=== PATIENT | female | born 1985 | race Caucasian/White ===

== ENCOUNTER 2016-09-09 10:19 | Inpatient (IN) | payer OTHER ==
[2016-09-09 10:33] VITALS: BMI 25.7
--- NOTE | 2016-09-09 12:19 | HP ---
CIWA Score - CIWA Score Nausea/Vomitin-No Nausea/No Vomiting Muscle Tremors: 4-Moderate,w/Arms Extend Anxiety: 4-Mod. Anxious/Guarded Agitation: 4-Moderately Restless Paroxysmal Sweats: 1-Minimal Palms Moist Orientation: 0-Oriented Tacttile Disturbances: 3-Moderate Itch/Numb/Burn Auditory Disturbances: 0-None Visual Disturbances: 0-None Headache: 0-None Present CIWA-Ar Total Score: 16 Admission ROS S - HPI Chief Complaint: DETOX TX FOR ALCOHOL AND STREET XANAX/KLONOPIN DEPENDENCE Allergies/Adverse Reactions: Allergies Allergy/AdvReac Type Severity Reaction Status Date / Time No Known Allergies Allergy Verified 09/09/16 11:52 History of Present Illness: 30 Y/O FEMALE WITH A HX OF ALCOHOL,BENZOS AND COCAINE DEPENDENCE ON [facility]- MMTP 50 MG PO DAILY SEEKING DETOX TX. Exam Limitations: No Limitations - Ebola screening Have you traveled outside of the country in the last 21 days: No Have you had contact with anyone from an Ebola affected area: No Have you been sick,other than usual withdrawal symptoms: No Do you have a fever: No - Review of Systems Constitutional: Chills, Loss of Appetite, Night Sweats, Unintentional Wgt. Loss EENT: reports: Tearing, Nose Congestion, Dental Problems (HX CAVITIES) Respiratory: reports: No Symptoms reported Cardiac: reports: Lightheadedness GI: reports: Diarrhea, Nausea, Poor Appetite, Poor Fluid Intake, Vomiting : reports: No Symptoms Reported Musculoskeletal: reports: Back Pain, Joint Pain, Muscle Pain Integumentary: reports: Bruising (IVD TRACKS ON HANDS) Neuro: reports: Tremors, Unsteady Gait, Dizziness Endocrine: reports: No Symptoms Reported Hematology: reports: No Symptoms Reported Psychiatric: reports: Orientated x3, Anxious, Depressed Other Systems: Reviewed and Negative Patient History - Patient Medical History Hx Anemia: No Hx Asthma: No Hx Chronic Obstructive Pulmonary Disease (COPD): No Hx Cardiac Disorders: No Hx Hypertension: No Hx Hypercholesterolemia: No HX Cerebrovascular Accident: No Hx Seizures: No Hx Diabetes: No Hx Gastrointestinal Disorders: No Hx Genitourinary Disorders: No Hx Sexually Transmitted Disorders: No Hx Renal Disease (ESRD): No Hx Thyroid Disease: No Hx Human Immunodeficiency Virus (HIV): No (NEGATIVE HX) Hx Hepatitis C: Yes (NO TREATMENT) Hx Depression: Yes Hx Suicide Attempt: No (DENIES) Hx Schizophrenia: No - Patient Surgical History Past Surgical History: Yes Hx Orthopedic Surgery: Yes (R wrist fx sx in 2013) Anesthesia Reaction: No - PPD History Previous Implant?: Yes Documented Results: Negative w/o proof Implanted On Prior [facility] Admission?: No PPD to be Administered?: Yes - Reproductive History Patient is a Female of Child Bearing Age (11 -55 yrs old): Yes Last Menstrual Period: 08/21/16 Patient : No - Smoking Cessation Smoking history: Current every day smoker Have you smoked in the past 12 months: Yes Aproximately how many cigarettes per day: 10 Hx Chewing Tobacco Use: No Initiated information on smoking cessation: Yes 'Breaking Loose' booklet given: 09/09/16 - Substance & Tx. History Hx Alcohol Use: Yes (VODKA) Hx Substance Use: Yes (XANAX/KLONOPIN/COCAINE/HEROIN) Substance Use Type: Alcohol, Cocaine, Heroin, Tranquilizers Hx Substance Use Treatment: Yes ([facility] DETOX; ON MMTP) - Substances Abused Alprazolam (Xanax) Route: Oral Frequency: Daily Amount used: 8-10 mg Age of first use: 26 Date of Last Use: 09/09/16 Alcohol Route: Oral Frequency: Daily Amount used: 3 pints vodka Age of first use: 15 Date of Last Use: 09/08/16 Cocaine Route: Injection Frequency: Daily Amount used: $20 Age of first use: 17 Date of Last Use: 09/05/16 Family Disease History - Family Disease History Family History: Denies Admission Physical Exam [facility] - Vital Signs Vital Signs: Vital Signs - 24 hr 09/09/16 10:31 Temperature 96 F L Pulse Rate 64 Respiratory 18 Rate Blood Pressure 113/69 - Physical General Appearance: Yes: Moderate Distress, Irritable, Anxious HEENTM: Yes: EOMI, Normocephalic, KARIE, Pharynx Normal Respiratory: Yes: Chest Non-Tender, Lungs Clear, Normal Breath Sounds, No Respiratory Distress Neck: Yes: Supple, Trachea in good position Breast: Yes: Breast Exam Deferred Cardiology: Yes: Regular Rhythm, Regular Rate, S1, S2 Abdominal: Yes: Normal Bowel Sounds, Non Tender, Soft Genitourinary: Yes: Other (N/C) Back: Yes: Within Normal Limits Musculoskeletal: Yes: full range of Motion, Gait Steady Extremities: Yes: Normal Range of Motion, Non-Tender Neurological: Yes: food quality tester II-XII NML intact, Fully Oriented, Alert Integumentary: Yes: Dry, Warm, Track [place] (IVD TRACKS ON HANDS--NO REDNESS OR SWELLING) Lymphatic: Yes: Within Normal Limits - Diagnostic (1) Alcohol dependence with uncomplicated withdrawal Current Visit: Yes Status: Acute (2) Sedative, hypnotic or anxiolytic dependence with withdrawal, uncomplicated Current Visit: Yes Status: Acute (3) Cocaine dependence, uncomplicated Current Visit: Yes Status: Acute (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
[2016-09-09] MEDS ORDERED: MAGNESIUM HYDROX 2400MG/30ML ORAL SUSPENSION 30 ML CUP PO PRN (12:28)
[2016-09-09] MEDS ORDERED: IBUPROFEN 400 MG TABLET (FP) PO PRN (12:28)
[2016-09-09] MEDS ORDERED: ACETAMINOPHEN 325 MG TABLET (FP) PO PRN (12:28)
[2016-09-09] MEDS ORDERED: guaiFENesin/D-METHORPHAN HB 10 ML UNIT-DOSE CUPS PO PRN (12:28)
[2016-09-09] MEDS ORDERED: diphenhydrAMINE HCL 50 MG CAPSULE PO PRN (12:28)
[2016-09-09] MEDS ORDERED: hydrOXYzine PAMOATE 25 MG CAPSULE (FP) PO PRN (12:28)
[2016-09-09] MEDS ORDERED: MAG HYDROX/AL HYDROX/SIMETH 30 ML UNIT-DOSE CUP PO PRN (12:28)
[2016-09-09] MEDS ORDERED: MAGNESIUM CITRATE 300 ML BOTTLE PO PRN (12:28)
[2016-09-09] MEDS ORDERED: P-EPHED 60MG/TRIPROLIDI 2.5MG TABLET PO PRN (12:28)
[2016-09-09] MEDS ORDERED: MENTHOL/PHENOL 1 EACH UD MM PRN (12:28)
[2016-09-09] MEDS ORDERED: LOPERAMIDE HCL 2 MG CAPSULE PO PRN (12:28)
[2016-09-09] MEDS ORDERED: chlordiazePOXIDE HCL 25 MG CAPSULE PO PRN (12:28)
[2016-09-09] MEDS ORDERED: chlordiazePOXIDE HCL 25 MG CAPSULE PO ONE (12:57)
[2016-09-09 14:29] LABS: HIV 1 & 2 AB NEGATIVE; HIV 1 AGp24 NEGATIVE
[2016-09-09] MEDS: NICOTINE 14 MG/24 HOURS TOPICAL PATCH TD SCH ×2 (15:28→15:31)
[2016-09-09 16:06] LABS: URINE APPEARANCE CLEAR; URINE BILIRUBIN NEGATIVE (NEGATIVE); URINE BLOOD NEGATIVE (NEGATIVE); URINE COLOR LTYELLOW; URINE GLUCOSE (UA) NEGATIVE (NEGATIVE); URINE KETONE NEGATIVE (NEGATIVE); URINE NITRITE POSITIVE (NEGATIVE); URINE PROTEIN NEGATIVE (NEGATIVE); URINE UROBILINOGEN NEGATIVE E.U./dl (0.2-1.0)
[2016-09-09 16:17] LABS: URINE LEUK ESTERASE TRACE (NEGATIVE)
[2016-09-09 16:19] LABS: URINE BACTERIA MANY /hpf (NONE SEEN); URINE MUCUS RARE; URINE RBC 1 /hpf (0-3); URINE WBC 2 /hpf (3-5)
[2016-09-09] MEDS: chlordiazePOXIDE HCL 25 MG CAPSULE PO SCH ×2 (17:25→22:27)
[2016-09-09] MEDS: THIAMINE HCL 100 MG TABLET (FP) PO SCH (22:27)
[2016-09-10] MEDS: chlordiazePOXIDE HCL 25 MG CAPSULE PO SCH ×4 (06:05→22:17)
[2016-09-10] MEDS ORDERED: METHADONE HCL 10 MG TABLET PO ONE (08:54)
[2016-09-10] MEDS ORDERED: METHADONE 40 MG, METHADONE 10 MG PO ONE (09:07)
[2016-09-10] MEDS ORDERED: METHADONE HCL 10 MG TABLET ONE (10:01)
[2016-09-10] MEDS ORDERED: METHADONE HCL 40 MG DISPERSABLE TABLET ONE (10:02)
[2016-09-10] MEDS: NICOTINE POLACRILEX 2 MG GUM BUC PRN (10:13)
[2016-09-10] MEDS: NICOTINE 14 MG/24 HOURS TOPICAL PATCH TD SCH (10:13)
[2016-09-10] MEDS: PRENATAL VITAMINS W/ FOLIC ACID TABLET (FP) PO SCH (10:13)
[2016-09-10 10:48] LABS: MCH 28.2 pg (25.7-33.7); MEAN CELL VOLUME 85.5 fl (80-96); MEAN PLT VOLUME 8.6 fl (7.5-11.1); PLATELET COUNT 326 K/MM3 (134-434); RDW 14.3 % (11.6-15.6); WHITE BLOOD COUNT 5.6 K/mm3 (4.0-10.0)
[2016-09-10 10:52] LABS: ALBUMIN 3.7 g/dl (3.4-5.0); ALK PHOS 97 U/L (45-117); ANION GAP 4 (8-16); BILIRUBIN,TOTAL 0.2 mg/dL (0.2-1.0); CALCIUM 9.1 mg/dL (8.5-10.1); CO2 32 mmol/L (21-32); CREATININE 0.9 mg/dL (0.55-1.02); GLUCOSE,RANDOM 70 mg/dL (74-106); SGOT/AST 42 U/L (15-37); SGPT/ALT 62 U/L (12-78); TOT PROT 7.4 g/dl (6.4-8.2)
--- NOTE | 2016-09-10 11:09 | PN ---
[facility] CIWA - CIWA Score Nausea/Vomitin-No Nausea/No Vomiting Muscle Tremors: 4-Moderate,w/Arms Extend Anxiety: 4-Mod. Anxious/Guarded Agitation: 4-Moderately Restless Paroxysmal Sweats: 3 Orientation: 0-Oriented Tacttile Disturbances: 0-None Auditory Disturbances: 0-None Visual Disturbances: 0-None Headache: 0-None Present CIWA-Ar Total Score: 15 BHS Progress Note (SOAP) Subjective: irritable agitation anxiety interrupted sleep Objective: 09/10/16 11:08 Vital Signs Temperature 98.2 F 09/10/16 10:08 Pulse Rate 78 09/10/16 10:08 Respiratory Rate 20 09/10/16 10:08 Blood Pressure 103/54 09/10/16 10:08 O2 Sat by Pulse Oximetry (%) Laboratory Tests 09/09/16 09/09/16 09/10/16 12:15 15:00 05:30 WBC 5.6 RBC 4.34 Hgb 12.3 Hct 37.1 MCV 85.5 MCHC 33.0 RDW 14.3 Plt Count 326 MPV 8.6 Sodium Potassium Chloride Carbon Dioxide Anion Gap BUN Creatinine Creat Clearance w eGFR Random Glucose Calcium Total Bilirubin AST ALT Alkaline Phosphatase Total Protein Albumin Urine Color Ltyellow Urine Appearance Clear Urine pH 7.0 Ur Specific [place] 1.010 Urine Protein Negative Urine Glucose (UA) Negative Urine Ketones Negative Urine Blood Negative Urine Nitrite Positive Urine Bilirubin Negative Urine Urobilinogen Negative Ur Leukocyte Esterase Trace H Urine RBC 1 Urine WBC 2 Ur Epithelial Cells Rare Urine Bacteria Many Urine Mucus Rare HIV 1&2 Antibody Screen Negative HIV P24 Antigen Negative 09/10/16 05:30 WBC RBC Hgb Hct MCV MCHC RDW Plt Count MPV Sodium 139 Potassium 4.3 Chloride 103 Carbon Dioxide 32 Anion Gap 4 L BUN 11 Creatinine 0.9 Creat Clearance w eGFR > 60 Random Glucose 70 L Calcium 9.1 Total Bilirubin 0.2 AST 42 H ALT 62 Alkaline Phosphatase 97 Total Protein 7.4 Albumin 3.7 Urine Color Urine Appearance Urine pH Ur Specific [place] Urine Protein Urine Glucose (UA) Urine Ketones Urine Blood Urine Nitrite Urine Bilirubin Urine Urobilinogen Ur Leukocyte Esterase Urine RBC Urine WBC Ur Epithelial Cells Urine Bacteria Urine Mucus HIV 1&2 Antibody Screen HIV P24 Antigen awake/alert ambulating no acute distress Assessment: 09/10/16 11:09 withdrawal sx Plan: continue detox increase fluids labs pending
--- NOTE | 2016-09-10 11:44 | CONSULT ---
[facility] Psychiatric Consult - Data Date of interview: 09/10/16 Admission source: [facility] Identifying data: This is 30 years old female with nom psychiatric hospitalization history intoxicated with: Opioids, Cocaine, Alcohol, Bemzodiazepins, Nicotine Substance Abuse History: Drug Screen Negative: No. Urine Drug Screen Results: MANI-Cocaine, OPI-Opiates, BZO-Benzodiazepines, MTD-Methadone, TCA-Tricyclic Antidepress. Smoking history: Current every day smoker. Have you smoked in the past 12 months: Yes. Aproximately how many cigarettes per day: 10. Hx Chewing Tobacco Use: No. Initiated information on smoking cessation: Yes. ' Breaking Loose' booklet given: 09/09/16. - Substance & Tx. History. Hx Alcohol Use: Yes (VODKA). Hx Substance Use: Yes (XANAX/KLONOPIN/COCAINE/HEROIN) . Substance Use Type: Alcohol, Cocaine, Heroin, Tranquilizers. Hx Substance Use Treatment: Yes ([facility] DETOX; ON MMTP). - Substances Abused. Alprazolam (Xanax). Route: Oral. Frequency: Daily. Amount used: 8-10 mg. Age of first use: 26. Date of Last Use: 09/09/16. Alcohol. Route: Oral. Frequency: Daily. Amount used: 3 pints vodka. Age of first use: 15. Date of Last Use: 09/08/16. Cocaine. Route: Injection. Frequency: Daily. Amount used: $20. Age of first use: 17. Date of Last Use: 09/05/16 Medical History: Denies Psychiatric History: Denies Physical/Sexual Abuse/Trauma History: Denies, unclear Additional Comment: Drug Screen Negative: No. Urine Drug Screen Results: MANI- Cocaine, OPI-Opiates, BZO-Benzodiazepines, MTD-Methadone, TCA-Tricyclic Antidepress. Observation. Detox Unit Care Protocol Mental Status Exam - Mental Status Exam Alert and Oriented to: Person Cognitive Function: Fair Patient Appearance: Unkempt Mood: Apprehensive Affect: Appropriate Patient Behavior: Cooperative Speech Pattern: Appropriate Voice Loudness: Normal Thought Process: Goal Oriented Thought Disorder: Being Controlled Hallucinations: Denies Suicidal Ideation: Denies Homicidal Ideation: Denies Insight/Judgement: Fair Sleep: Difficulty falling asleep Appetite: Fair Muscle strength/Tone: Normal Gait/Station: Normal Additional Comments: Observation. 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 Detox Unit Care Protocol
--- NOTE | 2016-09-10 11:51 | EKG ---
Test Reason : Blood Pressure : / mmHG Vent. Rate : 065 BPM Atrial Rate : 065 BPM P-R Int : 160 ms QRS Dur : 090 ms QT Int : 388 ms P-R-T Axes : 043 071 046 degrees QTc Int : 403 ms NORMAL SINUS RHYTHM WITH SINUS ARRHYTHMIA NORMAL ECG NO PREVIOUS ECGS AVAILABLE Confirmed by RANDY WALSH, DANE ([id number]) on 09/10/2016 11:51:23 AM Referred By: Confirmed By:ADNE PADILLA MD
[2016-09-10] MEDS ORDERED: diphenhydrAMINE HCL 25 MG CAPSULE (FP) PO ONE (21:23)
[2016-09-10] MEDS: THIAMINE HCL 100 MG TABLET (FP) PO SCH (22:17)
[2016-09-11] MEDS ORDERED: METHADONE HCL 10 MG TABLET ONE (04:54)
[2016-09-11] MEDS ORDERED: METHADONE HCL 40 MG DISPERSABLE TABLET ONE (04:54)
[2016-09-11] MEDS: METHADONE 40 MG, METHADONE 10 MG PO SCH (05:56)
[2016-09-11] MEDS: chlordiazePOXIDE HCL 25 MG CAPSULE PO SCH ×2 (05:56→10:42)
[2016-09-11] MEDS ORDERED: METHADONE HCL 40 MG DISPERSABLE TABLET PO SCH (06:00)
[2016-09-11] MEDS: PRENATAL VITAMINS W/ FOLIC ACID TABLET (FP) PO SCH (10:42)
[2016-09-11] MEDS: NICOTINE POLACRILEX 2 MG GUM BUC PRN (10:44)
[2016-09-11] MEDS: NICOTINE 14 MG/24 HOURS TOPICAL PATCH TD SCH (10:44)
--- NOTE | 2016-09-11 10:51 | PN ---
S CIWA - CIWA Score Nausea/Vomitin Muscle Tremors: 2 Anxiety: 3 Agitation: 2 Paroxysmal Sweats: 3 Orientation: 0-Oriented Tacttile Disturbances: 2-Mild Itch/Numbness/Burn Auditory Disturbances: 0-None Visual Disturbances: 0-None Headache: 0-None Present CIWA-Ar Total Score: 14 S Progress Note (SOAP) Subjective: sweats, lbp Objective: 09/11/16 10:49 Vital Signs Temperature 97.9 F 09/11/16 10:13 Pulse Rate 71 09/11/16 10:13 Respiratory Rate 16 09/11/16 10:13 Blood Pressure 105/66 09/11/16 10:13 O2 Sat by Pulse Oximetry (%) Laboratory Tests 09/09/16 09/09/16 09/10/16 12:15 15:00 05:30 WBC 5.6 RBC 4.34 Hgb 12.3 Hct 37.1 MCV 85.5 MCHC 33.0 RDW 14.3 Plt Count 326 MPV 8.6 Sodium Potassium Chloride Carbon Dioxide Anion Gap BUN Creatinine Creat Clearance w eGFR Random Glucose Calcium Total Bilirubin AST ALT Alkaline Phosphatase Total Protein Albumin Urine Color Ltyellow Urine Appearance Clear Urine pH 7.0 Ur Specific [place] 1.010 Urine Protein Negative Urine Glucose (UA) Negative Urine Ketones Negative Urine Blood Negative Urine Nitrite Positive Urine Bilirubin Negative Urine Urobilinogen Negative Ur Leukocyte Esterase Trace H Urine RBC 1 Urine WBC 2 Ur Epithelial Cells Rare Urine Bacteria Many Urine Mucus Rare RPR Titer HIV 1&2 Antibody Screen Negative HIV P24 Antigen Negative 09/10/16 09/10/16 05:30 05:30 WBC RBC Hgb Hct MCV MCHC RDW Plt Count MPV Sodium 139 Potassium 4.3 Chloride 103 Carbon Dioxide 32 Anion Gap 4 L BUN 11 Creatinine 0.9 Creat Clearance w eGFR > 60 Random Glucose 70 L Calcium 9.1 Total Bilirubin 0.2 AST 42 H ALT 62 Alkaline Phosphatase 97 Total Protein 7.4 Albumin 3.7 Urine Color Urine Appearance Urine pH Ur Specific [place] Urine Protein Urine Glucose (UA) Urine Ketones Urine Blood Urine Nitrite Urine Bilirubin Urine Urobilinogen Ur Leukocyte Esterase Urine RBC Urine WBC Ur Epithelial Cells Urine Bacteria Urine Mucus RPR Titer Nonreactive HIV 1&2 Antibody Screen HIV P24 Antigen pt aox3 in nad ambulating Assessment: 09/11/16 10:50 withdrawl sx's lbp 09/11/16 10:50 Plan: cont. detox increase fluids motrin prn
[2016-09-11] MEDS: chlordiazePOXIDE 5 MG CAPSULE PO SCH ×2 (17:35→22:16)
[2016-09-11] MEDS: THIAMINE HCL 100 MG TABLET (FP) PO SCH (22:16)
[2016-09-12] MEDS ORDERED: METHADONE HCL 10 MG TABLET ONE (04:34)
[2016-09-12] MEDS ORDERED: METHADONE HCL 40 MG DISPERSABLE TABLET ONE (04:34)
[2016-09-12] MEDS: METHADONE 40 MG, METHADONE 10 MG PO SCH (05:59)
[2016-09-12 06:40] VITALS: BP 104/58; PULSE 94; TEMP 99.3
[2016-09-12] MEDS: chlordiazePOXIDE 5 MG CAPSULE PO SCH (07:21)
--- NOTE | 2016-09-12 08:34 | DS ---
[facility] Detox Discharge Summary Admission Date: 09/09/16 - History Present History: Alcohol Dependence, Cocaine Dependence, Sedative Dependence - Physical Exam Results Vital Signs: Vital Signs Temperature 99.3 F 09/12/16 06:00 Pulse Rate 94 H 09/12/16 06:00 Respiratory Rate 18 09/12/16 06:00 Blood Pressure 104/58 09/12/16 06:00 O2 Sat by Pulse Oximetry (%) - Medication Discharge Medications: Ambulatory Orders NK [No Known Home Medication] 09/09/16 - Diagnosis (1) Alcohol dependence with uncomplicated withdrawal Current Visit: Yes Status: Chronic (2) Cocaine dependence, uncomplicated Current Visit: Yes Status: Chronic (3) Sedative, hypnotic or anxiolytic dependence with withdrawal, uncomplicated Current Visit: Yes Status: Chronic (4) Hepatitis C Current Visit: Yes Status: Chronic Qualifiers: Viral hepatitis chronicity: chronic (5) Methadone maintenance therapy patient Current Visit: Yes Status: Chronic (6) Drug-induced mood disorder Current Visit: Yes Status: Suspected - AMA Did Patient Leave Against Medical Advice: Yes (i need to go pay my rent)
[2016-09-12] MEDS ORDERED: chlordiazePOXIDE HCL 10 MG CAPSULE PO SCH (17:00)
== END 2016-09-12 08:53 | disposition left against medical advice (07) | DRG 770 ==
LOC: YASAS 10:19 → Y6N 12:54
PROVIDERS: ADMIT Internal Medicine Addiction Medicine; ATTEND Internal Medicine Addiction Medicine
PROC: HZ2ZZZZ Detoxification Services for Substance Abuse Treatment (ICD-10-PCS; principal; 2016-09-09)
DX: F13.230 Sedative, hypnotic or anxiolytic dependence with withdrawal, uncomplicated (principal); F11.23 Opioid dependence with withdrawal; F10.230 Alcohol dependence with withdrawal, uncomplicated; F14.20 Cocaine dependence, uncomplicated; F17.210 Nicotine dependence, cigarettes, uncomplicated; F19.24 Other psychoactive substance dependence with psychoactive substance-induced mood disorder; B18.2 Chronic viral hepatitis C; M54.5 Low back pain
CPT/HCPCS: 36415; 80053; 81003; 81015; 85027; 86593; 87389; 93005; 93010

== ENCOUNTER 2016-12-03 10:57 | Inpatient (IN) | payer OTHER ==
[2016-12-03 13:44] VITALS: BMI 27.4
--- NOTE | 2016-12-03 15:10 | HP ---
CIWA Score - CIWA Score Nausea/Vomitin-No Nausea/No Vomiting Muscle Tremors: 4-Moderate,w/Arms Extend Anxiety: 4-Mod. Anxious/Guarded Agitation: 4-Moderately Restless Paroxysmal Sweats: 1-Minimal Palms Moist Orientation: 0-Oriented Tacttile Disturbances: 3-Moderate Itch/Numb/Burn Auditory Disturbances: 0-None Visual Disturbances: 0-None Headache: 0-None Present CIWA-Ar Total Score: 16 Admission ROS S - HPI Chief Complaint: DETOX TX FOR ALCOHOL,KLONOPIN AND XANAX DEPENDENCE Allergies/Adverse Reactions: Allergies Allergy/AdvReac Type Severity Reaction Status Date / Time No Known Allergies Allergy Verified 09/09/16 11:52 History of Present Illness: 30 Y/O FEMALE WITH A HX OF ALCOHOL,KLONOPIN AND XANAX DEPENDENCE SEEKING DETOX [place] Exam Limitations: No Limitations - Ebola screening Have you traveled outside of the country in the last 21 days: No (N) Have you had contact with anyone from an Ebola affected area: No Have you been sick,other than usual withdrawal symptoms: No Do you have a fever: No - Review of Systems Constitutional: Chills, Loss of Appetite, Night Sweats, Changes in sleep, Unintentional Wgt. Loss EENT: reports: Blurred Vision, Tearing, Nose Congestion Respiratory: reports: No Symptoms reported Cardiac: reports: Lightheadedness GI: reports: Constipated, Diarrhea, Nausea, Poor Appetite, Poor Fluid Intake, Vomiting, Abdominal cramping : reports: No Symptoms Reported Musculoskeletal: reports: Back Pain, Muscle Pain Integumentary: reports: Bruising (IVD INJ SITES ON HANDS) Neuro: reports: Tremors, Unsteady Gait, Dizziness Endocrine: reports: No Symptoms Reported Hematology: reports: Anemia Psychiatric: reports: Orientated x3, Anxious, Depressed Other Systems: Reviewed and Negative Patient History - Patient Medical History Hx Anemia: No Hx Asthma: No Hx Chronic Obstructive Pulmonary Disease (COPD): No Hx Cardiac Disorders: No Hx Hypertension: No Hx Hypercholesterolemia: No HX Cerebrovascular Accident: No Hx Seizures: No Hx Diabetes: No Hx Gastrointestinal Disorders: No Hx Genitourinary Disorders: No Hx Sexually Transmitted Disorders: No Hx Renal Disease (ESRD): No Hx Thyroid Disease: No Hx Human Immunodeficiency Virus (HIV): No (NEGATIVE HX) Hx Hepatitis C: Yes (NO TREATMENT) Hx Depression: Yes Hx Suicide Attempt: No (DENIES) Hx Schizophrenia: No - Patient Surgical History Past Surgical History: Yes Hx Orthopedic Surgery: Yes (R wrist fx sx in 2013) Anesthesia Reaction: No - PPD History Previous Implant?: Yes Documented Results: Negative w/proof Date: 09/11/16 PPD to be Administered?: No - Reproductive History Patient is a Female of Child Bearing Age (11 -55 yrs old): Yes Last Menstrual Period: 11/28/16 Patient : No - Smoking Cessation Smoking history: Current every day smoker Have you smoked in the past 12 months: Yes Aproximately how many cigarettes per day: 5 Hx Chewing Tobacco Use: No Initiated information on smoking cessation: Yes 'Breaking Loose' booklet given: 12/03/16 - Substance & Tx. History Hx Alcohol Use: Yes (VODKA/WINE) Hx Substance Use: Yes (KLONOPIN/XANAX/MARIJUANA/K2) Substance Use Type: Alcohol, Cocaine, Marijuana Hx Substance Use Treatment: Yes ([facility] MMTP 50 MG, L/D 12/03/16) Family Disease History - Family Disease History Family Disease History: Other: Father (HTN) Admission Physical Exam S - Vital Signs Vital Signs: Vital Signs - 24 hr 12/03/16 13:42 Temperature 96 F L Pulse Rate 59 L Respiratory 20 Rate Blood Pressure 108/64 - Physical General Appearance: Yes: Moderate Distress, Irritable, Anxious HEENTM: Yes: EOMI, Normocephalic, KARIE, Pharynx Normal Respiratory: Yes: Chest Non-Tender, Lungs Clear, Normal Breath Sounds, No Respiratory Distress Neck: Yes: Supple, Trachea in good position Breast: Yes: Breast Exam Deferred Cardiology: Yes: Regular Rhythm, Regular Rate, S1, S2 Abdominal: Yes: Normal Bowel Sounds, Non Tender, Soft Genitourinary: Yes: Other (N/C) Back: Yes: Within Normal Limits Musculoskeletal: Yes: full range of Motion, Gait Steady Extremities: Yes: Normal Range of Motion, Non-Tender Neurological: Yes: driver starting gate II-XII NML intact, Fully Oriented, Alert, Motor Strength 5/5 Integumentary: Yes: Dry, Warm, Track [place] Lymphatic: Yes: Within Normal Limits (HANDS) - Diagnostic (1) Alcohol dependence with uncomplicated withdrawal Current Visit: Yes Status: Acute (2) Cocaine dependence, uncomplicated Current Visit: Yes Status: Acute (3) Hepatitis C Current Visit: Yes Status: Chronic Qualifiers: Viral hepatitis chronicity: chronic (4) Methadone maintenance therapy patient Current Visit: Yes Status: Chronic (5) Sedative, hypnotic or anxiolytic dependence with withdrawal, uncomplicated Current Visit: Yes Status: Acute Cleared for Admission [facility] - Detox or Rehab [facility] Level of Care: Medically Managed Detox Regimen/Protocol: Valium [facility] Breath Alcohol Content Breath Alcohol Content: 0 Urine Pregancy Test - Result Urine Test Results: Negative- NO Line Present Urine Drug Screen - Results Drug Screen Negative: No Urine Drug Screen Results: THC-Marijuana, MANI-Cocaine, OPI-Opiates, BZO- Benzodiazepines, MTD-Methadone
[2016-12-03] MEDS ORDERED: hydrOXYzine PAMOATE 25 MG CAPSULE (FP) PO PRN (16:07)
[2016-12-03] MEDS ORDERED: ACETAMINOPHEN 325 MG TABLET (FP) PO PRN (16:07)
[2016-12-03] MEDS ORDERED: MAGNESIUM HYDROX 2400MG/30ML ORAL SUSPENSION 30 ML CUP PO PRN (16:07)
[2016-12-03] MEDS ORDERED: MENTHOL/PHENOL 1 EACH UD MM PRN (16:07)
[2016-12-03] MEDS ORDERED: diazePAM 5 MG TABLET PO ONE (16:07)
[2016-12-03] MEDS ORDERED: guaiFENesin/D-METHORPHAN HB 10 ML UNIT-DOSE CUPS PO PRN (16:07)
[2016-12-03] MEDS ORDERED: P-EPHED 60MG/TRIPROLIDI 2.5MG TABLET PO PRN (16:07)
[2016-12-03] MEDS ORDERED: MAGNESIUM CITRATE 300 ML BOTTLE PO PRN (16:07)
[2016-12-03] MEDS: NICOTINE 14 MG/24 HOURS TOPICAL PATCH TD SCH (17:58)
[2016-12-03] MEDS: THIAMINE HCL 100 MG TABLET (FP) PO SCH (22:14)
[2016-12-03] MEDS: diazePAM 5 MG TABLET PO SCH (22:14)
[2016-12-04 01:10] LABS: URINE APPEARANCE SLCLOUDY; URINE BILIRUBIN NEGATIVE (NEGATIVE); URINE BLOOD NEGATIVE (NEGATIVE); URINE COLOR YELLOW; URINE GLUCOSE (UA) NEGATIVE (NEGATIVE); URINE KETONE NEGATIVE (NEGATIVE); URINE LEUK ESTERASE NEGATIVE (NEGATIVE); URINE NITRITE NEGATIVE (NEGATIVE); URINE PROTEIN NEGATIVE (NEGATIVE); URINE UROBILINOGEN NEGATIVE E.U./dl (0.2-1.0)
[2016-12-04] MEDS: diazePAM 5 MG TABLET PO SCH ×3 (05:21→22:12)
[2016-12-04] MEDS ORDERED: METHADONE HCL 10 MG TABLET PO ONE (08:27)
[2016-12-04] MEDS ORDERED: METHADONE 40 MG, METHADONE 10 MG PO ONE (08:35)
[2016-12-04] MEDS ORDERED: METHADONE HCL 40 MG DISPERSABLE TABLET ONE (08:39)
[2016-12-04] MEDS ORDERED: METHADONE HCL 10 MG TABLET ONE (08:40)
[2016-12-04 09:41] LABS: MCH 28.8 pg (25.7-33.7); MCHC 33.5 g/dl (32.0-36.0); MEAN PLT VOLUME 7.9 fl (7.5-11.1); PLATELET COUNT 274 K/MM3 (134-434); RDW 14.5 % (11.6-15.6); WHITE BLOOD COUNT 5.3 K/mm3 (4.0-10.0)
[2016-12-04 09:49] LABS: ALBUMIN 3.8 g/dl (3.4-5.0); ALK PHOS 83 U/L (45-117); ANION GAP 6 (8-16); BILIRUBIN,TOTAL 0.2 mg/dL (0.2-1.0); CALCIUM 8.1 mg/dL (8.5-10.1); CO2 26 mmol/L (21-32); CREATININE 0.7 mg/dL (0.55-1.02); GLUCOSE,RANDOM 104 mg/dL (74-106); SGOT/AST 22 U/L (15-37); SGPT/ALT 28 U/L (12-78)
--- NOTE | 2016-12-04 10:20 | CONSULT ---
[facility] Psychiatric Consult - Data Date of interview: 12/04/16 Admission source: [facility] Identifying data: This is 30 years old female with no psychiatric hospitalization history intoxicated with: Alcohol, Cocaine and Nicotine, Opioids Substance Abuse History: - Smoking Cessation. Smoking history: Current every day smoker. Have you smoked in the past 12 months: Yes. Aproximately how many cigarettes per day: 5. Hx Chewing Tobacco Use: No. Initiated information on smoking cessation: Yes. 'Breaking Loose' booklet given: 12/03/16. - Substance & Tx. History. Hx Alcohol Use: Yes (VODKA/WINE). Hx Substance Use: Yes ( KLONOPIN/XANAX/MARIJUANA/K2). Substance Use Type: Alcohol, Cocaine, Marijuana. Hx Substance Use Treatment: Yes ([facility] MMTP 50 MG, L/D 12/03/16). Family Disease History Medical History: HepC+, MMTP 50mg poqd Psychiatric History: Denies Physical/Sexual Abuse/Trauma History: Denies Additional Comment: Observation. Detox Unit Care Protocol Mental Status Exam - Mental Status Exam Alert and Oriented to: Person Cognitive Function: Fair Patient Appearance: Well Groomed Mood: Apprehensive Affect: Appropriate Patient Behavior: Cooperative Speech Pattern: Appropriate Voice Loudness: Normal Thought Process: Goal Oriented Thought Disorder: Not Present Hallucinations: Denies Suicidal Ideation: Denies Homicidal Ideation: Denies Insight/Judgement: Fair Sleep: Difficulty falling asleep Appetite: Fair Muscle strength/Tone: Normal Gait/Station: Normal Additional Comments: Observation. Detox Unit Care Protocol Psychiatric Findings - Problem List ([place] 1, 2,3) (1) Alcohol dependence with uncomplicated withdrawal Current Visit: Yes Status: Acute (2) Cocaine dependence, uncomplicated Current Visit: Yes Status: Acute (3) Sedative, hypnotic or anxiolytic dependence with withdrawal, uncomplicated Current Visit: Yes Status: Acute (4) Methadone maintenance therapy patient Current Visit: Yes Status: Chronic (5) Drug-induced mood disorder Current Visit: No Status: Suspected - Initial Treatment Plan Initial Treatment Plan: Observation. Detox Unit Care Protocol
[2016-12-04] MEDS: NICOTINE 14 MG/24 HOURS TOPICAL PATCH TD SCH (10:24)
[2016-12-04] MEDS: PRENATAL VITAMINS W/ FOLIC ACID TABLET (FP) PO SCH (10:25)
[2016-12-04] MEDS: diazePAM 5 MG TABLET PO PRN (10:25)
[2016-12-04] MEDS: NICOTINE POLACRILEX 2 MG GUM BC PRN (10:26)
--- NOTE | 2016-12-04 11:32 | PN ---
S CIWA - CIWA Score Nausea/Vomitin Muscle Tremors: 2 Anxiety: 2 Agitation: 2 Paroxysmal Sweats: 3 Orientation: 0-Oriented Tacttile Disturbances: 1-Very Mild Itch/Numbness Auditory Disturbances: 0-None Visual Disturbances: 0-None Headache: 0-None Present CIWA-Ar Total Score: 12 S Progress Note (SOAP) Subjective: interrupted sleep, nausea, decreased appetite Objective: 12/04/16 11:31 Vital Signs Temperature 97.3 F L 12/04/16 10:16 Pulse Rate 78 12/04/16 10:16 Respiratory Rate 18 12/04/16 10:16 Blood Pressure 108/53 12/04/16 10:16 O2 Sat by Pulse Oximetry (%) Laboratory Tests 12/03/16 12/04/16 12/04/16 23:02 06:00 06:00 WBC 5.3 RBC 3.98 Hgb 11.4 Hct 34.2 MCV 86.0 MCHC 33.5 RDW 14.5 Plt Count 274 MPV 7.9 Sodium 139 Potassium 4.2 Chloride 107 Carbon Dioxide 26 Anion Gap 6 L BUN 8 D Creatinine 0.7 D Creat Clearance w eGFR > 60 Random Glucose 104 D Calcium 8.1 L Total Bilirubin 0.2 AST 22 D ALT 28 D Alkaline Phosphatase 83 Total Protein 7.0 Albumin 3.8 Urine Color Yellow Urine Appearance Slcloudy Urine pH 6.0 Ur Specific [place] 1.024 Urine Protein Negative Urine Glucose (UA) Negative Urine Ketones Negative Urine Blood Negative Urine Nitrite Negative Urine Bilirubin Negative Urine Urobilinogen Negative Ur Leukocyte Esterase Negative Assessment: 12/04/16 14:16 withdrawal sx's Plan: cont detox increase fluids
--- NOTE | 2016-12-04 11:47 | EKG ---
Test Reason : Blood Pressure : / mmHG Vent. Rate : 073 BPM Atrial Rate : 073 BPM P-R Int : 170 ms QRS Dur : 096 ms QT Int : 398 ms P-R-T Axes : 041 068 043 degrees QTc Int : 438 ms NORMAL SINUS RHYTHM POSSIBLE LEFT ATRIAL ENLARGEMENT BORDERLINE ECG WHEN COMPARED WITH ECG OF 09-SEP-2016 15:01, T WAVE INVERSION NOW EVIDENT IN ANTERIOR LEADS Confirmed by SHARMILA WALSH, BUD ([id number]) on 12/04/2016 11:47:25 AM Referred By: Confirmed By:BUD DOLL MD
[2016-12-04] MEDS: diphenhydrAMINE HCL 50 MG CAPSULE PO PRN (22:12)
[2016-12-04] MEDS: THIAMINE HCL 100 MG TABLET (FP) PO SCH (22:12)
[2016-12-05] MEDS ORDERED: METHADONE HCL 40 MG DISPERSABLE TABLET ONE (04:46)
[2016-12-05] MEDS ORDERED: METHADONE HCL 10 MG TABLET ONE (04:47)
[2016-12-05] MEDS: METHADONE 40 MG, METHADONE 10 MG PO SCH (05:35)
[2016-12-05] MEDS ORDERED: METHADONE HCL 40 MG DISPERSABLE TABLET PO SCH (06:00)
[2016-12-05] MEDS: PRENATAL VITAMINS W/ FOLIC ACID TABLET (FP) PO SCH (10:39)
[2016-12-05] MEDS: diazePAM 5 MG TABLET PO SCH ×2 (10:39→22:30)
[2016-12-05] MEDS: NICOTINE 14 MG/24 HOURS TOPICAL PATCH TD SCH (10:40)
[2016-12-05] MEDS: NICOTINE POLACRILEX 2 MG GUM BC PRN (10:40)
--- NOTE | 2016-12-05 13:22 | PN ---
S CIWA - CIWA Score Nausea/Vomitin Muscle Tremors: 3 Anxiety: 4-Mod. Anxious/Guarded Agitation: 3 Paroxysmal Sweats: 2 Orientation: 1-Uncertain about Date Tacttile Disturbances: 2-Mild Itch/Numbness/Burn Auditory Disturbances: 0-None Visual Disturbances: 0-None Headache: 3-Moderate CIWA-Ar Total Score: 20 BHS Progress Note (SOAP) Subjective: Nausea, H/A, Interrupted sleep. Objective: PT. A & O X 2 (DISORIENTED ABOUT DAY / DATE). PT. OBSERVED AMBULATING ON UNIT. 12/05/16 13:20 Vital Signs Temperature 97.9 F 12/05/16 11:26 Pulse Rate 62 12/05/16 11:26 Respiratory Rate 18 12/05/16 11:26 Blood Pressure 100/52 12/05/16 11:26 O2 Sat by Pulse Oximetry (%) Laboratory Last Values WBC 5.3 K/mm3 (4.0-10.0) 12/04/16 06:00 RBC 3.98 M/mm3 (3.60-5.2) 12/04/16 06:00 Hgb 11.4 GM/dL (10.7-15.3) 12/04/16 06:00 Hct 34.2 % (32.4-45.2) 12/04/16 06:00 MCV 86.0 fl (80-96) 12/04/16 06:00 MCHC 33.5 g/dl (32.0-36.0) 12/04/16 06:00 RDW 14.5 % (11.6-15.6) 12/04/16 06:00 Plt Count 274 K/MM3 (134-434) 12/04/16 06:00 MPV 7.9 fl (7.5-11.1) 12/04/16 06:00 Sodium 139 mmol/L (136-145) 12/04/16 06:00 Potassium 4.2 mmol/L (3.5-5.1) 12/04/16 06:00 Chloride 107 mmol/L (98-107) 12/04/16 06:00 Carbon Dioxide 26 mmol/L (21-32) 12/04/16 06:00 Anion Gap 6 (8-16) L 12/04/16 06:00 BUN 8 mg/dL (7-18) D 12/04/16 06:00 Creatinine 0.7 mg/dL (0.55-1.02) D 12/04/16 06:00 Creat Clearance w eGFR > 60 (>60) 12/04/16 06:00 Random Glucose 104 mg/dL (74-106) D 12/04/16 06:00 Calcium 8.1 mg/dL (8.5-10.1) L 12/04/16 06:00 Total Bilirubin 0.2 mg/dL (0.2-1.0) 12/04/16 06:00 AST 22 U/L (15-37) D 12/04/16 06:00 ALT 28 U/L (12-78) D 12/04/16 06:00 Alkaline Phosphatase 83 U/L (45-117) 12/04/16 06:00 Total Protein 7.0 g/dl (6.4-8.2) 12/04/16 06:00 Albumin 3.8 g/dl (3.4-5.0) 12/04/16 06:00 Urine Color Yellow 12/03/16 23:02 Urine Appearance Slcloudy 12/03/16 23:02 Urine pH 6.0 (5.0-8.0) 12/03/16 23:02 Ur Specific [place] 1.024 (1.001-1.035) 12/03/16 23:02 Urine Protein Negative (NEGATIVE) 12/03/16 23:02 Urine Glucose (UA) Negative (NEGATIVE) 12/03/16 23:02 Urine Ketones Negative (NEGATIVE) 12/03/16 23:02 Urine Blood Negative (NEGATIVE) 12/03/16 23:02 Urine Nitrite Negative (NEGATIVE) 12/03/16 23:02 Urine Bilirubin Negative (NEGATIVE) 12/03/16 23:02 Urine Urobilinogen Negative E.U./dl (0.2-1.0) 12/03/16 23:02 Ur Leukocyte Esterase Negative (NEGATIVE) 12/03/16 23:02 RPR Titer Nonreactive (NONREACTIVE) 12/04/16 06:00 LABS NOTED. Assessment: 12/05/16 13:21 WITHDRAWAL SYMPTOMS. Plan: CONTINUE DETOX. ADVISED PATIENT TO FOLLOW-UP WITH [facility] / REHAB MEDICAL PROVIDER AFTER DISCHARGE FROM DETOX FOR ABNORMAL ADMISSION LAB VALUES.
[2016-12-05] MEDS ORDERED: PATIENT'S OWN MEDICATION (NON-FORMULARY) (Penicillin V Potassium [Pen Vee K -] 500 MG) PO SCH (14:00)
[2016-12-05] MEDS: diazePAM 5 MG TABLET PO PRN ×2 (14:20→18:19)
[2016-12-05] MEDS: PATIENT'S OWN MEDICATION (NON-FORMULARY) (Penicillin V Potassium [Pen Vee K -] 500 MG) PO SCH ×2 (18:08→23:56)
[2016-12-05] MEDS: THIAMINE HCL 100 MG TABLET (FP) PO SCH (22:29)
[2016-12-05] MEDS: diphenhydrAMINE HCL 50 MG CAPSULE PO PRN (22:30)
[2016-12-06] MEDS ORDERED: METHADONE HCL 40 MG DISPERSABLE TABLET ONE (05:46)
[2016-12-06] MEDS ORDERED: METHADONE HCL 10 MG TABLET ONE (05:47)
[2016-12-06] MEDS: METHADONE 40 MG, METHADONE 10 MG PO SCH (06:08)
[2016-12-06] MEDS: PATIENT'S OWN MEDICATION (NON-FORMULARY) (Penicillin V Potassium [Pen Vee K -] 500 MG) PO SCH ×3 (06:10→18:51)
[2016-12-06] MEDS: PRENATAL VITAMINS W/ FOLIC ACID TABLET (FP) PO SCH (10:41)
[2016-12-06] MEDS: NICOTINE 14 MG/24 HOURS TOPICAL PATCH TD SCH (10:41)
[2016-12-06] MEDS: NICOTINE POLACRILEX 2 MG GUM BC PRN (10:41)
[2016-12-06] MEDS: diazePAM 5 MG TABLET PO SCH ×2 (10:41→22:29)
--- NOTE | 2016-12-06 15:14 | PN ---
S Progress Note (SOAP) Subjective: ALERT,IRRITABLE,ANXIOUS,INTERRUPTED SLEEP,TREMOR Objective: 12/06/16 15:13 Vital Signs Temperature 98.2 F 12/06/16 10:31 Pulse Rate 65 12/06/16 10:31 Respiratory Rate 18 12/06/16 10:31 Blood Pressure 108/65 12/06/16 10:31 O2 Sat by Pulse Oximetry (%) Assessment: 12/06/16 15:14 WITHDRAWAL SYMPTOM Plan: CONTINUE DETOX,DISCHARGE IN AM
[2016-12-06] MEDS: diphenhydrAMINE HCL 50 MG CAPSULE PO PRN (22:29)
[2016-12-06] MEDS: THIAMINE HCL 100 MG TABLET (FP) PO SCH (22:29)
[2016-12-07] MEDS: PATIENT'S OWN MEDICATION (NON-FORMULARY) (Penicillin V Potassium [Pen Vee K -] 500 MG) PO SCH ×2 (01:00→06:00)
[2016-12-07] MEDS ORDERED: METHADONE HCL 40 MG DISPERSABLE TABLET ONE (04:34)
[2016-12-07] MEDS ORDERED: METHADONE HCL 10 MG TABLET ONE (04:35)
[2016-12-07] MEDS: METHADONE 40 MG, METHADONE 10 MG PO SCH (06:00)
[2016-12-07] MEDS ORDERED: diazePAM 5 MG TABLET PO SCH (10:00)
--- NOTE | 2016-12-07 10:09 | PN ---
S Progress Note (SOAP) Subjective: ALERT,NO COMPLAINT Objective: 12/07/16 10:07 Vital Signs Temperature 98.1 F 12/07/16 07:16 Pulse Rate 64 12/07/16 07:16 Respiratory Rate 16 12/07/16 07:16 Blood Pressure 100/65 12/07/16 07:16 O2 Sat by Pulse Oximetry (%) Assessment: 12/07/16 10:08 DETOX COMPLETED,NO WITHDRAWAL SYMPTOM Plan: DISCHARGE TODAY,FOLLOW UP WITH AFTER CARE PROGRAM ARRANGEMENT
--- NOTE | 2016-12-07 10:12 | DS ---
[facility] Detox Discharge Summary Admission Date: 12/03/16 Discharge Date: 12/07/16 - History Present History: Alcohol Dependence, Cannabis Dependence, Cocaine Dependence, Sedative Dependence Additional Comments: FOLLOW UP WITH AFTER CARE PROGRAM ARRANGEMENT [facility] Pertinent Past History: HEPATITIS C - Physical Exam Results Vital Signs: Vital Signs Temperature 98.1 F 12/07/16 07:16 Pulse Rate 64 12/07/16 07:16 Respiratory Rate 16 12/07/16 07:16 Blood Pressure 100/65 12/07/16 07:16 O2 Sat by Pulse Oximetry (%) Pertinent Admission Physical Exam Findings: WITHDRAWAL SYMPTOM - Treatment Hospital Course: Detox Protocol Followed, Detoxed Safely, Responded well, Discharged Condition Good, Rehab Referral Accepted Patient has Accepted a Rehab Referral to: [facility] - Medication Discharge Medications: Ambulatory Orders Penicillin V Potassium [Pen Vee K -] 500 mg PO QID 12/05/16 - Diagnosis (1) Alcohol dependence with uncomplicated withdrawal Current Visit: Yes Status: Acute (2) Cocaine dependence, uncomplicated Current Visit: Yes Status: Acute (3) Sedative, hypnotic or anxiolytic dependence with withdrawal, uncomplicated Current Visit: Yes Status: Acute (4) Hepatitis C Current Visit: Yes Status: Chronic Qualifiers: Viral hepatitis chronicity: chronic (5) Methadone maintenance therapy patient Current Visit: Yes Status: Chronic (6) Drug-induced mood disorder Current Visit: No Status: Suspected (7) History of dental problems Current Visit: Yes Status: Acute - AMA Did Patient Leave Against Medical Advice: No
[2016-12-07] MEDS: PRENATAL VITAMINS W/ FOLIC ACID TABLET (FP) PO SCH (10:44)
[2016-12-07] MEDS: NICOTINE POLACRILEX 2 MG GUM BC PRN (10:45)
[2016-12-07] MEDS: NICOTINE 14 MG/24 HOURS TOPICAL PATCH TD SCH (10:45)
[2016-12-07 10:54] VITALS: BP 91/59; PULSE 77; TEMP 97.7
== END 2016-12-07 12:15 | disposition other institution (70) | DRG 773 ==
LOC: YASAS 10:57 → Y6N 16:59 → Y3N 12-04 18:49 → Y6N 12-04 18:50
PROVIDERS: ADMIT Internal Medicine Addiction Medicine; ATTEND Internal Medicine Addiction Medicine
PROC: HZ2ZZZZ Detoxification Services for Substance Abuse Treatment (ICD-10-PCS; principal; 2016-12-03)
DX: F13.230 Sedative, hypnotic or anxiolytic dependence with withdrawal, uncomplicated (principal); F11.20 Opioid dependence, uncomplicated; F10.230 Alcohol dependence with withdrawal, uncomplicated; F14.20 Cocaine dependence, uncomplicated; F17.210 Nicotine dependence, cigarettes, uncomplicated; F19.24 Other psychoactive substance dependence with psychoactive substance-induced mood disorder; B18.2 Chronic viral hepatitis C
CPT/HCPCS: 36415; 80053; 81003; 85027; 86593; 93005; 93010

== ENCOUNTER 2016-12-07 12:16 | Inpatient (IN) | payer OTHER ==
[2016-12-07] MEDS ORDERED: hydrOXYzine PAMOATE 50 MG CAPSULE (FP) PO PRN (12:55)
[2016-12-07] MEDS ORDERED: guaiFENesin/D-METHORPHAN HB 10 ML UNIT-DOSE CUPS PO PRN (12:55)
[2016-12-07] MEDS ORDERED: MAGNESIUM HYDROX 2400MG/30ML ORAL SUSPENSION 30 ML CUP PO PRN (12:55)
[2016-12-07] MEDS ORDERED: ACETAMINOPHEN 325 MG TABLET (FP) PO PRN (12:55)
[2016-12-07] MEDS ORDERED: MAG HYDROX/AL HYDROX/SIMETH 30 ML UNIT-DOSE CUP PO PRN (12:55)
[2016-12-07] MEDS ORDERED: P-EPHED 60MG/TRIPROLIDI 2.5MG TABLET PO PRN (12:55)
[2016-12-07] MEDS ORDERED: MAGNESIUM CITRATE 300 ML BOTTLE PO PRN (12:55)
[2016-12-07] MEDS ORDERED: LOPERAMIDE HCL 2 MG CAPSULE PO PRN (12:55)
[2016-12-07] MEDS ORDERED: MENTHOL/PHENOL 1 EACH UD MM PRN (12:55)
--- NOTE | 2016-12-07 12:59 | HP ---
[facility] Rehab Assess/Revision - Admission History Admitted to Rehab from: [facility] Date of Admission to Rehab: 12/08/16 - Vital signs Vital Signs: Vital Signs Period Temp Pulse Resp BP Sys/Vasquez Pulse Ox Last 24 Hr 97.7 F 65 18 106/71 - Findings Detox History & Physical reviewed: Yes Concur with findings: Yes Comments/Additional Findings: FOR REHAB PROTOCOL
[2016-12-07] MEDS: PENICILLIN V POTASSIUM 500 MG TABLET PO SCH (18:25)
[2016-12-07] MEDS: diphenhydrAMINE HCL 50 MG CAPSULE PO PRN (21:23)
[2016-12-07] MEDS: THIAMINE HCL 100 MG TABLET (FP) PO SCH (21:23)
[2016-12-08] MEDS: PENICILLIN V POTASSIUM 500 MG TABLET PO SCH ×4 (00:05→17:27)
[2016-12-08] MEDS ORDERED: METHADONE HCL 40 MG DISPERSABLE TABLET ONE (05:42)
[2016-12-08] MEDS ORDERED: METHADONE HCL 10 MG TABLET ONE (05:42)
[2016-12-08] MEDS ORDERED: PT OWN MED DRAWER 7, Y5N ONE ×2 (05:43→17:17)
[2016-12-08] MEDS ORDERED: METHADONE HCL 10 MG TABLET PO SCH (06:00)
[2016-12-08] MEDS: METHADONE 40 MG, METHADONE 10 MG PO SCH (06:52)
[2016-12-08] MEDS: PRENATAL VITAMINS W/ FOLIC ACID TABLET (FP) PO SCH (10:20)
[2016-12-08] MEDS: NICOTINE 21 MG/24 HOURS TOPICAL PATCH TD SCH (10:20)
--- NOTE | 2016-12-08 15:14 | HP ---
[id number] [facility] Identifying data: This is ther first admission to [address] [place] [address] rehabilitation for this 30 yo single mother of 9 yo (son adopted in 2013),he has no connection with the child.Patient resides with boyfriend and supported by him. Medical History: Hep C. Psychiatric History: denies Physical/Sexual Abuse/Trauma History: denies Vital Signs: Vital Signs - 24 hr 12/08/16 12/08/16 12/08/16 00:30 03:30 07:16 Temperature 98.1 F Pulse Rate 63 Respiratory 17 16 18 Rate Blood Pressure 113/71 Allergies/Adverse Reactions: Allergies Allergy/AdvReac Type Severity Reaction Status Date / Time No Known Allergies Allergy Verified 12/03/16 16:19 Date of last physical exam: 12/03/16 Concur with the findings of this exam: Yes - Substance Abuse/Tx History Hx Alcohol Use: Yes (socially) Hx Substance Use: Yes (cocaine since 17 yo(recently started IV),heroin since 26 yo (MMTP 50 mg )Xa) Substance Use Type: Cocaine, Heroin, Tranquilizers Hx Substance Use Treatment: Yes (completed [facility] inpatient in 2013,long abstinence 5 years) - Admission Criteria Previous failed treatment: Yes Poor recovery environment: Yes Mental Status Exam - Mental Status Exam Alert and Oriented to: Time, Place, Person Cognitive Function: Grossly Intact Patient Appearance: Well Groomed Mood: Euthymic Affect: Mood Congruent Patient Behavior: Cooperative Speech Pattern: Clear Voice Loudness: Normal Thought Process: Goal Oriented Thought Disorder: Not Present Hallucinations: Denies Suicidal Ideation: Denies Homicidal Ideation: Denies Insight/Judgement: Fair Sleep: Fair Appetite: Good Muscle strength/Tone: Normal Gait/Station: Normal Psychiatric Findings - Problem List ([place] 1, 2,3) (1) Alcohol dependence with uncomplicated withdrawal Current Visit: Yes Status: Chronic (2) Cocaine dependence, uncomplicated Current Visit: Yes Status: Chronic (3) Sedative, hypnotic or anxiolytic dependence with withdrawal, uncomplicated Current Visit: Yes Status: Chronic (4) Hepatitis C Current Visit: Yes Status: Chronic Qualifiers: Viral hepatitis chronicity: chronic (5) Methadone maintenance therapy patient Current Visit: Yes Status: Chronic (6) Drug-induced mood disorder Current Visit: Yes Status: Suspected - Initial Treatment Plan Initial Treatment Plan: Will monitor progress.
[2016-12-08] MEDS: diphenhydrAMINE HCL 50 MG CAPSULE PO PRN (21:30)
[2016-12-08] MEDS: THIAMINE HCL 100 MG TABLET (FP) PO SCH (21:30)
[2016-12-09] MEDS: PENICILLIN V POTASSIUM 500 MG TABLET PO SCH ×5 (00:50→23:07)
[2016-12-09] MEDS ORDERED: METHADONE HCL 10 MG TABLET ONE (05:14)
[2016-12-09] MEDS ORDERED: METHADONE HCL 40 MG DISPERSABLE TABLET ONE (05:15)
[2016-12-09] MEDS: METHADONE 40 MG, METHADONE 10 MG PO SCH (06:26)
[2016-12-09] MEDS: NICOTINE 21 MG/24 HOURS TOPICAL PATCH TD SCH (10:18)
[2016-12-09] MEDS: NICOTINE POLACRILEX 2 MG GUM BUC PRN ×2 (10:19→21:19)
[2016-12-09] MEDS: PRENATAL VITAMINS W/ FOLIC ACID TABLET (FP) PO SCH (10:19)
[2016-12-09] MEDS ORDERED: PT OWN MED DRAWER 7, Y5N ONE (17:09)
[2016-12-09] MEDS: IBUPROFEN 400 MG TABLET (FP) PO PRN (17:27)
[2016-12-09] MEDS: THIAMINE HCL 100 MG TABLET (FP) PO SCH (21:16)
[2016-12-10] MEDS ORDERED: PT OWN MED DRAWER 7, Y5N ONE ×2 (03:12→18:56)
[2016-12-10] MEDS ORDERED: METHADONE HCL 40 MG DISPERSABLE TABLET ONE (06:00)
[2016-12-10] MEDS ORDERED: METHADONE HCL 10 MG TABLET ONE (06:00)
[2016-12-10] MEDS: METHADONE 40 MG, METHADONE 10 MG PO SCH (06:51)
[2016-12-10] MEDS: PENICILLIN V POTASSIUM 500 MG TABLET PO SCH ×3 (06:51→18:59)
[2016-12-10] MEDS: NICOTINE 21 MG/24 HOURS TOPICAL PATCH TD SCH (10:23)
[2016-12-10] MEDS: PRENATAL VITAMINS W/ FOLIC ACID TABLET (FP) PO SCH (10:23)
[2016-12-10] MEDS: THIAMINE HCL 100 MG TABLET (FP) PO SCH (21:31)
[2016-12-11] MEDS: PENICILLIN V POTASSIUM 500 MG TABLET PO SCH ×3 (00:45→11:59)
[2016-12-11] MEDS ORDERED: METHADONE HCL 40 MG DISPERSABLE TABLET ONE (06:38)
[2016-12-11] MEDS ORDERED: METHADONE HCL 10 MG TABLET ONE (06:38)
[2016-12-11] MEDS ORDERED: PT OWN MED DRAWER 7, Y5N ONE (06:38)
[2016-12-11] MEDS: METHADONE 40 MG, METHADONE 10 MG PO SCH (06:39)
[2016-12-11 07:34] VITALS: BP 99/63; PULSE 55; TEMP 98.2
[2016-12-11] MEDS: PRENATAL VITAMINS W/ FOLIC ACID TABLET (FP) PO SCH (10:21)
[2016-12-11] MEDS: NICOTINE 21 MG/24 HOURS TOPICAL PATCH TD SCH (10:22)
[2016-12-11] MEDS: NICOTINE POLACRILEX 2 MG GUM BUC PRN (10:25)
[2016-12-11] MEDS: IBUPROFEN 400 MG TABLET (FP) PO PRN (11:59)
--- NOTE | 2016-12-24 11:03 | PN ---
[facility] Progress Note Note: Patient left this program AMA on 12/11/16 without giving any significant reasons for discontinuation of treatment.She was stable on discharge .See staff notes for details.
== END 2016-12-11 18:28 | disposition left against medical advice (07) | DRG 770 ==
LOC: YASAS 12:16 → Y3E 12:17
PROVIDERS: ADMIT Psychiatry & Neurology Psychiatry; ATTEND Psychiatry & Neurology Psychiatry
PROC: HZ42ZZZ Group Counseling for Substance Abuse Treatment, Cognitive-Behavioral (ICD-10-PCS; principal; 2016-12-11)
DX: F11.20 Opioid dependence, uncomplicated (principal); F13.230 Sedative, hypnotic or anxiolytic dependence with withdrawal, uncomplicated; F10.230 Alcohol dependence with withdrawal, uncomplicated; F14.20 Cocaine dependence, uncomplicated; F19.24 Other psychoactive substance dependence with psychoactive substance-induced mood disorder; B18.2 Chronic viral hepatitis C

== ENCOUNTER 2017-08-30 09:52 | Inpatient (IN) | payer OTHER ==
[2017-08-30 10:22] VITALS: BMI 26.1
--- NOTE | 2017-08-30 11:06 | HP ---
CIWA Score - CIWA Score Nausea/Vomitin Muscle Tremors: 3 Anxiety: 3 Agitation: 3 Paroxysmal Sweats: 2 Orientation: 0-Oriented Tacttile Disturbances: 2-Mild Itch/Numbness/Burn Auditory Disturbances: 2-Mild Harshness/Frighten Visual Disturbances: 0-None Headache: 2-Mild CIWA-Ar Total Score: 20 Admission ROS BHS - HPI Chief Complaint: i need help to stop drinking alcohol,klonopin,heroin abused,mmtp 30 mgs/day, last medicated 08/29/16 stated loss the bottle to take home hepatitis c last treatment 07/13/17 to 07/15/17 not completed longest period of sobriety 5 yearsi insomnia Allergies/Adverse Reactions: Allergies Allergy/AdvReac Type Severity Reaction Status Date / Time No Known Allergies Allergy Verified 03/17/17 11:19 History of Present Illness: this 31 years old female with alcohol,cocaine,klonopin dependence,mmtp 30 mgs/ day see above - Ebola screening Have you traveled outside of the country in the last 21 days: No Have you had contact with anyone from an Ebola affected area: No Have you been sick,other than usual withdrawal symptoms: No Do you have a fever: No - Review of Systems Constitutional: Loss of Appetite, Malaise, Night Sweats, Changes in sleep, Weakness EENT: reports: Nose Congestion Respiratory: reports: No Symptoms reported Cardiac: reports: No Symptoms Reported GI: reports: Diarrhea, Nausea, Vomiting, Abdominal cramping : reports: No Symptoms Reported Musculoskeletal: reports: Back Pain, Muscle Pain Integumentary: reports: Dryness Neuro: reports: Tremors Endocrine: reports: No Symptoms Reported Hematology: reports: No Symptoms Reported Psychiatric: reports: other (insomnia) Patient History - Patient Medical History Hx Anemia: No Hx Asthma: No Hx Chronic Obstructive Pulmonary Disease (COPD): No Hx Cardiac Disorders: No Hx Hypertension: No Hx Hypercholesterolemia: No HX Cerebrovascular Accident: No Hx Seizures: No Hx Diabetes: No Hx Gastrointestinal Disorders: No Hx Genitourinary Disorders: No Hx Sexually Transmitted Disorders: No Hx Renal Disease (ESRD): No Hx Thyroid Disease: No Hx Human Immunodeficiency Virus (HIV): No (NEGATIVE HX last 07/13/17) Hx Hepatitis C: Yes (NOT YET TREATMENT-CURRENTLY EXPLORED TREATMENT BUT TO F/U AFTER DETOX.) Hx Depression: Yes Hx Suicide Attempt: No (DENIES) Hx Bipolar Disorder: No Hx Schizophrenia: No Other Medical History: insomnia,no suicidal,no homicidal - Patient Surgical History Past Surgical History: Yes Hx Neurologic Surgery: No Hx Cataract Extraction: No Hx Cardiac Surgery: No Hx Lung Surgery: No Hx Breast Surgery: No Hx Breast Biopsy: No Hx Abdominal Surgery: No Hx Appendectomy: No Hx Cholecystectomy: No Hx Genitourinary Surgery: No Hx Section: No Hx Orthopedic Surgery: Yes (R wrist fx sx in 2013) Anesthesia Reaction: No - PPD History Previous Implant?: Yes Documented Results: Negative w/proof Implanted On Prior [facility] Admission?: Yes Date: 09/11/16 Results: 0 mm PPD to be Administered?: Yes - Reproductive History Patient is a Female of Child Bearing Age (11 -55 yrs old): Yes Last Menstrual Period: 09/08/17 Patient : No - Smoking Cessation Smoking history: Current every day smoker Have you smoked in the past 12 months: Yes Aproximately how many cigarettes per day: 5 Hx Chewing Tobacco Use: No Initiated information on smoking cessation: Yes 'Breaking Loose' booklet given: 08/30/17 - Substance & Tx. History Hx Alcohol Use: Yes Hx Substance Use: Yes Substance Use Type: Alcohol, Cocaine, Opiates, Tranquilizers Hx Substance Use Treatment: Yes ([facility] 07/13/17 to 07/15/17 not completed) - Substances Abused Alcohol Route: Oral Frequency: Daily Amount used: 3pints of vodka Age of first use: 15 Date of Last Use: 08/29/17 Cocaine Route: Injection Frequency: Daily Amount used: 50$ Age of first use: 17 Date of Last Use: 08/29/17 Benzodiazepine (Klonopin) Route: Oral Frequency: Daily Amount used: 10 mgs Age of first use: 26 Date of Last Use: 08/29/17 Heroin Route: Injection Frequency: 3-6 times per week Amount used: 2 or 3 bags Age of first use: 26 Date of Last Use: 08/28/17 Family Disease History - Family Disease History Family Disease History: Other: Father (HTN) Admission Physical Exam BHS - Vital Signs Vital Signs: Vital Signs - 24 hr 08/30/17 10:21 Temperature 95.5 F L Pulse Rate 65 Respiratory 18 Rate Blood Pressure 110/66 - Physical General Appearance: Yes: Moderate Distress, Tremorous, Irritable, Sweating, Anxious HEENTM: Yes: Normal ENT Inspection, KARIE, Pharynx Normal Respiratory: Yes: Lungs Clear, Normal Breath Sounds, No Respiratory Distress Neck: Yes: No masses,lesions,Nodules, Supple, Trachea in good position Breast: Yes: Breast Exam Deferred Cardiology: Yes: Within Normal Limits, Regular Rhythm, Regular Rate, S1, S2 Abdominal: Yes: Within Normal Limits, Normal Bowel Sounds, Non Tender, Flat, Soft Genitourinary: Yes: Within Normal Limits Back: Yes: Normal Inspection, Muscle Spasm Musculoskeletal: Yes: full range of Motion, Back pain, Muscle Pain Extremities: Yes: Tremors Neurological: Yes: career services manager II-XII NML intact, Fully Oriented, Alert, Motor Strength 5/5 Integumentary: Yes: Dry, Track [place] Lymphatic: Yes: Within Normal Limits - Diagnostic (1) Alcohol dependence with uncomplicated withdrawal Current Visit: No Status: Chronic (2) Cocaine dependence, uncomplicated Current Visit: No Status: Chronic (3) Hepatitis C Current Visit: No Status: Chronic Qualifiers: Viral hepatitis chronicity: chronic Hepatic coma status: without hepatic coma Qualified Code(s): B18.2 - Chronic viral hepatitis C (4) Methadone maintenance therapy patient Current Visit: No Status: Chronic (5) Drug-induced mood disorder Current Visit: No Status: Suspected (6) Insomnia Current Visit: Yes Status: Acute (7) Weight loss Current Visit: Yes Status: Acute BHS Breath Alcohol Content Breath Alcohol Content: 0 Urine Pregancy Test - Result Urine Test Results: Negative- NO Line Present Urine Drug Screen - Results Drug Screen Negative: No Urine Drug Screen Results: MANI-Cocaine, OPI-Opiates, BZO-Benzodiazepines, MTD- Methadone
[2017-08-30] MEDS ORDERED: NICOTINE POLACRILEX 2 MG GUM BUC PRN (11:20)
[2017-08-30] MEDS ORDERED: MAGNESIUM HYDROX 2400MG/30ML ORAL SUSPENSION 30 ML CUP PO PRN (11:20)
[2017-08-30] MEDS ORDERED: MAG HYDROX/AL HYDROX/SIMETH 30 ML UNIT-DOSE CUP PO PRN (11:20)
[2017-08-30] MEDS ORDERED: MAGNESIUM CITRATE 300 ML BOTTLE PO PRN (11:20)
[2017-08-30] MEDS ORDERED: LOPERAMIDE HCL 2 MG CAPSULE PO PRN (11:20)
[2017-08-30] MEDS ORDERED: ACETAMINOPHEN 325 MG TABLET (FP) PO PRN (11:20)
[2017-08-30] MEDS ORDERED: hydrOXYzine PAMOATE 50 MG CAPSULE (FP) PO PRN (11:20)
[2017-08-30] MEDS ORDERED: MENTHOL/PHENOL 1 EACH UD MM PRN (11:20)
[2017-08-30] MEDS ORDERED: IBUPROFEN 400 MG TABLET (FP) PO PRN (11:20)
[2017-08-30] MEDS ORDERED: diazePAM 5 MG TABLET PO ONE (11:23)
[2017-08-30] MEDS: P-EPHED 60MG/TRIPROLIDI 2.5MG TABLET PO PRN (13:58)
[2017-08-30] MEDS: guaiFENesin/D-METHORPHAN HB 10 ML UNIT-DOSE CUPS PO PRN (13:58)
[2017-08-30] MEDS: diazePAM 5 MG TABLET PO SCH ×2 (14:08→22:09)
[2017-08-30 16:19] LABS: URINE APPEARANCE CLOUDY; URINE BILIRUBIN NEGATIVE (NEGATIVE); URINE BLOOD 1+ (NEGATIVE); URINE COLOR YELLOW; URINE GLUCOSE (UA) NEGATIVE (NEGATIVE); URINE KETONE NEGATIVE (NEGATIVE); URINE NITRITE POSITIVE (NEGATIVE); URINE PROTEIN NEGATIVE (NEGATIVE); URINE UROBILINOGEN NEGATIVE mg/dL (0.2-1.0)
[2017-08-30 16:29] LABS: URINE LEUK ESTERASE 2+ (NEGATIVE)
[2017-08-30 16:43] LABS: EPI CELLS RARE /HPF (FEW); URINE BACTERIA FEW /hpf (NONE SEEN); URINE MUCUS MANY
[2017-08-30] MEDS: THIAMINE HCL 100 MG TABLET (FP) PO SCH (22:09)
[2017-08-31] MEDS: diazePAM 5 MG TABLET PO SCH ×3 (05:12→22:15)
--- NOTE | 2017-08-31 07:53 | CONSULT ---
[facility] Psychiatric Consult - Data Date of interview: 08/31/17 Admission source: [facility] Identifying data: This is 31 yuears old female with no psychiatric hospitalization history intoxicated with: Alcohol, Cocaine, Opioids, Benzo, Methadone Substance Abuse History: Smoking history: Current every day smoker. Have you smoked in the past 12 months: Yes. Aproximately how many cigarettes per day: 5. Hx Chewing Tobacco Use: No. Initiated information on smoking cessation: Yes. 'Breaking Loose' booklet given: 08/30/17. - Substance & Tx. History. Hx Alcohol Use: Yes. Hx Substance Use: Yes. Substance Use Type: Alcohol, Cocaine , Opiates, Tranquilizers. Hx Substance Use Treatment: Yes ([facility] 07/13/17 to not completed). - Substances Abused. Alcohol. Route: Oral. Frequency: Daily. Amount used: 3pints of vodka. Age of first use: 15. Date of Last Use: 08/29/17. Cocaine. Route: Injection. Frequency: Daily. Amount used: 50$. Age of first use: 17. Date of Last Use: 08/29/17. Benzodiazepine (Klonopin). Route: Oral. Frequency: Daily. Amount used: 10 mgs. Age of first use: 26. Date of Last Use: 08/29/17. Heroin. Route: Injection. Frequency: 3-6 times per week. Amount used: 2 or 3 bags. Age of first use: 26. Date of Last Use: 08/28/17 Medical History: Hep C+, MMTP 30MG PER DAY, Weight loss history Psychiatric History: Patient reports anxiety and Insomnia, reports taking prior to admission: Trazodone 100mg po qhs Physical/Sexual Abuse/Trauma History: Denies Additional Comment: Trazodone 100mg po qhs Mental Status Exam - Mental Status Exam Alert and Oriented to: Person Cognitive Function: Fair Patient Appearance: Unkempt Mood: Sad Affect: Mood Congruent Patient Behavior: Cooperative Speech Pattern: Appropriate Voice Loudness: Mildly Soft/Quiet Thought Process: Goal Oriented Thought Disorder: Being Controlled Hallucinations: Denies Suicidal Ideation: Denies Homicidal Ideation: Denies Insight/Judgement: Fair Sleep: Difficulty falling asleep Appetite: Weight loss Muscle strength/Tone: Rigidity Gait/Station: Normal Additional Comments: Trazodone 100mg po qhs Psychiatric Findings - Problem List ([place] 1, 2,3) (1) Weight loss Current Visit: Yes Status: Acute (2) Alcohol dependence with uncomplicated withdrawal Current Visit: No Status: Chronic (3) Cocaine dependence, uncomplicated Current Visit: No Status: Chronic (4) Methadone maintenance therapy patient Current Visit: No Status: Chronic (5) Drug-induced mood disorder Current Visit: No Status: Suspected - Initial Treatment Plan Initial Treatment Plan: Trazodone 100mg po qhs
--- NOTE | 2017-08-31 09:28 | PN ---
S CIWA - CIWA Score Nausea/Vomitin Muscle Tremors: 3 Anxiety: 3 Agitation: 3 Paroxysmal Sweats: 1-Minimal Palms Moist Orientation: 0-Oriented Tacttile Disturbances: 1-Very Mild Itch/Numbness Auditory Disturbances: 1-Very Mild Visual Disturbances: 0-None Headache: 2-Mild CIWA-Ar Total Score: 17 BHS Progress Note (SOAP) Subjective: ALERT,IRRITABLE,ANXIOUS,INTERRUPTED SLEEP,TREMOR Objective: 08/31/17 09:26 Vital Signs Temperature 98 F 08/31/17 06:01 Pulse Rate 63 08/31/17 06:01 Respiratory Rate 16 08/31/17 06:01 Blood Pressure 122/77 08/31/17 06:01 O2 Sat by Pulse Oximetry (%) EKG NSR,NORMAL ECG Laboratory Last Values Urine Color Yellow 08/30/17 15:30 Urine Appearance Cloudy 08/30/17 15:30 Urine pH 5.0 (5.0-8.0) D 08/30/17 15:30 Ur Specific [place] 1.012 (1.001-1.035) 08/30/17 15:30 Urine Protein Negative (NEGATIVE) 08/30/17 15:30 Urine Glucose (UA) Negative (NEGATIVE) 08/30/17 15:30 Urine Ketones Negative (NEGATIVE) 08/30/17 15:30 Urine Blood 1+ (NEGATIVE) H 08/30/17 15:30 Urine Nitrite Positive (NEGATIVE) 08/30/17 15:30 Urine Bilirubin Negative (NEGATIVE) 08/30/17 15:30 Urine Urobilinogen Negative mg/dL (0.2-1.0) 08/30/17 15:30 Ur Leukocyte Esterase 2+ (NEGATIVE) H 08/30/17 15:30 Urine WBC (Auto) 19 /hpf (3-5) 08/30/17 15:30 Urine RBC (Auto) 6 /hpf (0-3) 08/30/17 15:30 Ur Epithelial Cells Rare /HPF (FEW) 08/30/17 15:30 Urine Bacteria Few /hpf (NONE SEEN) 08/30/17 15:30 Urine Mucus Many 08/30/17 15:30 LAB PENDING Assessment: 08/31/17 09:27 WITHDRAWAL SYMPTOM Plan: CONTINUE DETOX,ENCOURAGE ORAL FLUID,REPEAT UA
[2017-08-31] MEDS: PRENATAL VITAMINS W/ FOLIC ACID TABLET (FP) PO SCH (10:04)
[2017-08-31] MEDS: METHADONE HCL 10 MG TABLET PO SCH (10:04)
[2017-08-31] MEDS: diazePAM 5 MG TABLET PO PRN ×2 (10:07→20:49)
[2017-08-31 10:11] LABS: HEMATOCRIT 38.2 % (32.4-45.2); HEMOGLOBIN 12.2 GM/dL (10.7-15.3); MCH 27.2 pg (25.7-33.7); MCHC 31.9 g/dl (32.0-36.0); MEAN CELL VOLUME 85.4 fl (80-96); MEAN PLT VOLUME 8.3 fl (7.5-11.1); PLATELET COUNT 371 K/MM3 (134-434); RBC 4.47 M/mm3 (3.60-5.2); RDW 15.3 % (11.6-15.6); WHITE BLOOD COUNT 6.3 K/mm3 (4.0-10.0)
[2017-08-31 10:13] LABS: CHLORIDE 105 mmol/L (98-107); POTASSIUM 5.3 mmol/L (3.5-5.1); SGOT/AST 14 U/L (15-37); SGPT/ALT 22 U/L (12-78); SODIUM 137 mmol/L (136-145)
[2017-08-31 10:19] LABS: ALBUMIN 3.5 g/dl (3.4-5.0); ALK PHOS 65 U/L (45-117); ANION GAP 2 (8-16); BILIRUBIN,TOTAL 0.3 mg/dL (0.2-1.0); BLOOD UREA NITROGEN 8 mg/dL (7-18); CALCIUM 8.8 mg/dL (8.5-10.1); CO2 30 mmol/L (21-32); CREATININE 0.8 mg/dL (0.55-1.02); GLUCOSE,RANDOM 85 mg/dL (74-106); TOT PROT 7.5 g/dl (6.4-8.2)
[2017-08-31] MEDS: guaiFENesin/D-METHORPHAN HB 10 ML UNIT-DOSE CUPS PO PRN (11:51)
--- NOTE | 2017-08-31 12:46 | EKG ---
Test Reason : Blood Pressure : / mmHG Vent. Rate : 068 BPM Atrial Rate : 068 BPM P-R Int : 162 ms QRS Dur : 094 ms QT Int : 398 ms P-R-T Axes : 046 071 046 degrees QTc Int : 423 ms NORMAL SINUS RHYTHM NORMAL ECG WHEN COMPARED WITH ECG OF 13-JUL-2017 14:04, NO SIGNIFICANT CHANGE WAS FOUND Confirmed by ZAHIRA BAUMANN MD ([id number]) on 08/31/2017 12:46:04 PM Referred By: Confirmed By:ZAHIRA BAUMANN MD
[2017-08-31] MEDS: P-EPHED 60MG/TRIPROLIDI 2.5MG TABLET PO PRN (14:52)
[2017-08-31] MEDS: traZODone HCL 100 MG TABLET (FP) PO SCH (22:15)
[2017-08-31] MEDS: THIAMINE HCL 100 MG TABLET (FP) PO SCH (22:15)
[2017-09-01] MEDS: diazePAM 5 MG TABLET PO PRN ×3 (05:44→17:14)
[2017-09-01] MEDS: METHADONE HCL 10 MG TABLET PO SCH (05:44)
[2017-09-01] MEDS: guaiFENesin/D-METHORPHAN HB 10 ML UNIT-DOSE CUPS PO PRN ×2 (05:58→22:21)
[2017-09-01] MEDS: P-EPHED 60MG/TRIPROLIDI 2.5MG TABLET PO PRN (05:59)
--- NOTE | 2017-09-01 09:26 | PN ---
S CIWA - CIWA Score Nausea/Vomitin Muscle Tremors: 3 Anxiety: 3 Agitation: 2 Paroxysmal Sweats: 1-Minimal Palms Moist Orientation: 0-Oriented Tacttile Disturbances: 1-Very Mild Itch/Numbness Auditory Disturbances: 1-Very Mild Visual Disturbances: 0-None Headache: 2-Mild CIWA-Ar Total Score: 16 BHS Progress Note (SOAP) Subjective: ALERT,IRRITABLE,ANXIOUS,INTERRUPTED SLEEP,TREMOR Objective: 09/01/17 09:24 Vital Signs Temperature 98.2 F 09/01/17 06:00 Pulse Rate 54 L 09/01/17 06:00 Respiratory Rate 16 09/01/17 06:00 Blood Pressure 100/58 09/01/17 06:00 O2 Sat by Pulse Oximetry (%) Assessment: 09/01/17 09:25 WITHDRAWAL SYMPTOM Plan: CONTINUE DETOX,K IS 5.3 REPEAT K PENDING,ENCOURAGE ORAL FLUID
[2017-09-01] MEDS: PRENATAL VITAMINS W/ FOLIC ACID TABLET (FP) PO SCH (10:10)
[2017-09-01] MEDS: diazePAM 5 MG TABLET PO SCH ×2 (10:10→22:21)
[2017-09-01 10:15] LABS: URINE APPEARANCE CLEAR; URINE BILIRUBIN NEGATIVE (NEGATIVE); URINE BLOOD NEGATIVE (NEGATIVE); URINE COLOR STRAW; URINE GLUCOSE (UA) NEGATIVE (NEGATIVE); URINE KETONE NEGATIVE (NEGATIVE); URINE LEUK ESTERASE NEGATIVE (NEGATIVE); URINE NITRITE NEGATIVE (NEGATIVE); URINE PROTEIN NEGATIVE (NEGATIVE); URINE UROBILINOGEN NEGATIVE mg/dL (0.2-1.0)
[2017-09-01] MEDS: traZODone HCL 100 MG TABLET (FP) PO SCH (22:21)
[2017-09-01] MEDS: THIAMINE HCL 100 MG TABLET (FP) PO SCH (22:21)
[2017-09-02] MEDS: METHADONE HCL 10 MG TABLET PO SCH (05:11)
[2017-09-02] MEDS: diazePAM 5 MG TABLET PO PRN ×2 (05:12→11:10)
[2017-09-02] MEDS: diazePAM 5 MG TABLET PO SCH ×2 (09:09→22:17)
--- NOTE | 2017-09-02 09:41 | PN ---
BHS Progress Note (SOAP) Subjective: ALERT,IRRITABLE,ANXIOUS,INTERRUPTED SLEEP,PAIN IN THE BODY Objective: 09/02/17 09:41 Vital Signs Temperature 98.4 F 09/02/17 06:16 Pulse Rate 55 L 09/02/17 06:16 Respiratory Rate 16 09/02/17 06:16 Blood Pressure 138/65 09/02/17 06:16 O2 Sat by Pulse Oximetry (%) Assessment: 09/02/17 09:41 WITHDRAWAL SYMPTOM Plan: CONTINUE DETOX,DISCHARGE IN AM
[2017-09-02] MEDS: PRENATAL VITAMINS W/ FOLIC ACID TABLET (FP) PO SCH (10:15)
[2017-09-02] MEDS: guaiFENesin/D-METHORPHAN HB 10 ML UNIT-DOSE CUPS PO PRN (11:11)
[2017-09-02] MEDS: traZODone HCL 100 MG TABLET (FP) PO SCH (22:17)
[2017-09-02] MEDS: THIAMINE HCL 100 MG TABLET (FP) PO SCH (22:17)
[2017-09-03] MEDS: METHADONE HCL 10 MG TABLET PO SCH (05:07)
[2017-09-03] MEDS: guaiFENesin/D-METHORPHAN HB 10 ML UNIT-DOSE CUPS PO PRN (05:08)
--- NOTE | 2017-09-03 08:41 | DS ---
[facility] Detox Discharge Summary Admission Date: 08/30/17 Discharge Date: 09/03/17 - History Present History: Alcohol Dependence, Cocaine Dependence Additional Comments: follow up with after care program as arrangement - Physical Exam Results Vital Signs: Vital Signs Temperature 97.3 F L 09/03/17 06:05 Pulse Rate 78 09/03/17 06:05 Respiratory Rate 09/03/17 06:05 Blood Pressure 113/68 09/03/17 06:05 O2 Sat by Pulse Oximetry (%) Pertinent Admission Physical Exam Findings: withdrawal symptom - Treatment Hospital Course: Detox Protocol Followed, Detoxed Safely, Responded well, Discharged Condition Good, Rehab Referral Accepted Patient has Accepted a [facility] Referral [facility] - Medication Discharge Medications: Ambulatory Orders Trazodone HCl [Desyrel -] 100 mg PO HS #30 tablet 08/31/17 - Diagnosis (1) Alcohol dependence with uncomplicated withdrawal Current Visit: No Status: Chronic (2) Cocaine dependence, uncomplicated Current Visit: No Status: Chronic (3) Hepatitis C Current Visit: No Status: Chronic Qualifiers: Viral hepatitis chronicity: chronic Hepatic coma status: without hepatic coma Qualified Code(s): B18.2 - Chronic viral hepatitis C (4) Methadone maintenance therapy patient Current Visit: No Status: Chronic (5) Drug-induced mood disorder Current Visit: No Status: Suspected (6) Insomnia Current Visit: Yes Status: Acute (7) Weight loss Current Visit: Yes Status: Acute - AMA Did Patient Leave Against Medical Advice: No
[2017-09-03] MEDS: PRENATAL VITAMINS W/ FOLIC ACID TABLET (FP) PO SCH (09:13)
[2017-09-03 09:59] VITALS: BP 142/70; PULSE 77; TEMP 97.5
[2017-09-03] MEDS ORDERED: diazePAM 5 MG TABLET PO SCH (10:00)
== END 2017-09-03 09:35 | disposition home or self-care (01) | DRG 773 ==
LOC: YASAS 09:52 → Y6N 11:37
PROVIDERS: ADMIT Internal Medicine; ATTEND Internal Medicine
PROC: HZ2ZZZZ Detoxification Services for Substance Abuse Treatment (ICD-10-PCS; principal; 2017-08-30)
DX: F11.20 Opioid dependence, uncomplicated (principal); F13.230 Sedative, hypnotic or anxiolytic dependence with withdrawal, uncomplicated; F10.230 Alcohol dependence with withdrawal, uncomplicated; F14.20 Cocaine dependence, uncomplicated; F19.24 Other psychoactive substance dependence with psychoactive substance-induced mood disorder; F32.9 Major depressive disorder, single episode, unspecified; B18.2 Chronic viral hepatitis C; G47.00 Insomnia, unspecified; R63.4 Abnormal weight loss; Z68.26 Body mass index [BMI] 26.0-26.9, adult
CPT/HCPCS: 36415; 80053; 81003; 81015; 84132; 85027; 86593; 87389; 93005; 93010

== ENCOUNTER 2017-10-15 08:22 | Inpatient (IN) | payer OTHER ==
[2017-10-15 10:08] VITALS: BMI 27.4
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
[2017-10-15] MEDS ORDERED: MAG HYDROX/AL HYDROX/SIMETH 30 ML UNIT-DOSE CUP PO PRN (11:44)
[2017-10-15] MEDS ORDERED: LOPERAMIDE HCL 2 MG CAPSULE PO PRN (11:44)
[2017-10-15] MEDS ORDERED: NICOTINE POLACRILEX 2 MG GUM BUC PRN (11:44)
[2017-10-15] MEDS ORDERED: guaiFENesin/D-METHORPHAN HB 10 ML UNIT-DOSE CUPS PO PRN (11:44)
[2017-10-15] MEDS ORDERED: MAGNESIUM CITRATE 300 ML BOTTLE PO PRN (11:44)
[2017-10-15] MEDS ORDERED: MENTHOL/PHENOL 1 EACH UD MM PRN (11:44)
[2017-10-15] MEDS ORDERED: P-EPHED 60MG/TRIPROLIDI 2.5MG TABLET PO PRN (11:44)
[2017-10-15] MEDS ORDERED: MAGNESIUM HYDROX 2400MG/30ML ORAL SUSPENSION 30 ML CUP PO PRN (11:44)
[2017-10-15] MEDS ORDERED: diazePAM 5 MG TABLET PO ONE (11:54)
[2017-10-15] MEDS ORDERED: METHADONE HCL 10 MG TABLET PO ONE (11:58)
--- NOTE | 2017-10-15 12:35 | CONSULT ---
[facility] Psychiatric Consult - Data Date of interview: 10/15/17 Admission source: [facility] Identifying data: This is a 31 years old female, single, mother of one, homeless , unemployed, using cane for ambulation, with long history of alcohol, xanax, nicotine,cocaine dependence, withy no psychiatric hospitalization history , here for detoxification. Substance Abuse History: - Smoking Cessation. Smoking history: Current every day smoker. Have you smoked in the past 12 months: Yes. Aproximately how many cigarettes per day: 7. Cigars Per Day: 0. Hx Chewing Tobacco Use: No. Initiated information on smoking cessation: Yes. 'Breaking Loose' booklet given : 10/15/17. - Substance & Tx. History. Hx Alcohol Use: Yes. Hx Substance Use : Yes. Substance Use Type: Alcohol, Cocaine, Heroin, Marijuana. Hx Substance Use Treatment: Yes (08/2017 [facility] - Substances Abused. Cocaine. Route : Injection. Frequency: Daily. Amount used: $50. Age of first use: 26. Date of Last Use: 10/14/17. Alcohol-vodka. Route: Oral. Frequency: Daily. Amount used: 2-3 pts. vodka. Age of first use: 15. Date of Last Use: . Xanax. Route: Oral. Frequency: Daily. Amount used: 4 mg. Age of first use: 29. Date of Last Use: 10/13/17 Medical History: MMTP 40 mg po daily, s/p left knee injury on 10/08/17 treated at [facility] discharged with toney bandage and cane as supportive care. Psychiatric History: Patient reports history of depression, reports taking prior to admission: Trazodone 100mg po qhs Physical/Sexual Abuse/Trauma History: Denies Additional Comment: Trazodone 100mg po qhs Mental Status Exam - Mental Status Exam Alert and Oriented to: Person Cognitive Function: Fair Patient Appearance: Unkempt Mood: Apprehensive Affect: Mood Congruent Patient Behavior: Cooperative Speech Pattern: Appropriate Voice Loudness: Normal Thought Process: Goal Oriented Thought Disorder: Being Controlled Hallucinations: Denies Suicidal Ideation: Denies Homicidal Ideation: Denies Insight/Judgement: Fair Sleep: Difficulty falling asleep Appetite: Weight loss Muscle strength/Tone: Mild Hypertonicity Gait/Station: Antalgic Additional Comments: Trazodone 100mg po qhs Psychiatric Findings - Problem List ([place] 1, 2,3) (1) Alcohol dependence with uncomplicated withdrawal Current Visit: Yes Status: Acute (2) Sedative, hypnotic or anxiolytic dependence with withdrawal, uncomplicated Current Visit: Yes Status: Acute (3) Methadone maintenance therapy patient Current Visit: Yes Status: Chronic (4) Depressed Current Visit: Yes Status: Suspected Qualifiers: Depression Type: dysthymia Qualified Code(s): F34.1 - Dysthymic disorder (5) Weight loss Current Visit: No Status: Acute (6) Cocaine dependence, uncomplicated Current Visit: No Status: Chronic (7) Drug-induced mood disorder Current Visit: No Status: Suspected - Initial Treatment Plan Initial Treatment Plan: Trazodone 100mg po qhs
[2017-10-15] MEDS: diazePAM 5 MG TABLET PO SCH ×2 (13:20→22:28)
[2017-10-15] MEDS: IBUPROFEN 400 MG TABLET (FP) PO PRN ×2 (13:21→19:33)
[2017-10-15 18:11] LABS: URINE APPEARANCE CLOUDY; URINE BILIRUBIN NEGATIVE (NEGATIVE); URINE BLOOD NEGATIVE (NEGATIVE); URINE COLOR YELLOW; URINE GLUCOSE (UA) NEGATIVE (NEGATIVE); URINE KETONE NEGATIVE (NEGATIVE); URINE LEUK ESTERASE TRACE (NEGATIVE); URINE NITRITE NEGATIVE (NEGATIVE); URINE PROTEIN NEGATIVE (NEGATIVE); URINE UROBILINOGEN NEGATIVE mg/dL (0.2-1.0)
[2017-10-15 18:32] LABS: EPI CELLS RARE /HPF (FEW); YEAST FEW
[2017-10-15] MEDS: diazePAM 5 MG TABLET PO PRN (19:33)
[2017-10-15] MEDS: THIAMINE HCL 100 MG TABLET (FP) PO SCH (22:28)
[2017-10-16] MEDS: diazePAM 5 MG TABLET PO SCH ×3 (06:27→22:18)
[2017-10-16] MEDS: IBUPROFEN 400 MG TABLET (FP) PO PRN (06:30)
[2017-10-16] MEDS ORDERED: METHADONE HCL 40 MG DISPERSABLE TABLET PO ONE (08:44)
[2017-10-16] MEDS: diazePAM 5 MG TABLET PO PRN ×2 (08:49→17:51)
[2017-10-16] MEDS ORDERED: LIDOCAINE 5% TOPICAL PATCH TP ONE (09:58)
[2017-10-16 10:28] LABS: CHLORIDE 103 mmol/L (98-107); HEMATOCRIT 35.7 % (32.4-45.2); HEMOGLOBIN 11.6 GM/dL (10.7-15.3); MCH 27.8 pg (25.7-33.7); MCHC 32.6 g/dl (32.0-36.0); MEAN CELL VOLUME 85.3 fl (80-96); MEAN PLT VOLUME 8.1 fl (7.5-11.1); PLATELET COUNT 276 K/MM3 (134-434); POTASSIUM 4.9 mmol/L (3.5-5.1); RBC 4.18 M/mm3 (3.60-5.2); RDW 15.8 % (11.6-15.6); SODIUM 140 mmol/L (136-145); WHITE BLOOD COUNT 6.8 K/mm3 (4.0-10.0)
[2017-10-16] MEDS: PRENATAL VITAMINS W/ FOLIC ACID TABLET (FP) PO SCH (10:29)
[2017-10-16] MEDS: NICOTINE 14 MG/24 HOURS TOPICAL PATCH TD SCH (10:30)
[2017-10-16] MEDS: LIDOCAINE 5% TOPICAL PATCH TP SCH (10:31)
[2017-10-16] MEDS: METHOCARBAMOL 500 MG TABLET PO SCH ×4 (10:32→22:18)
[2017-10-16 10:46] LABS: ALBUMIN 3.8 g/dl (3.4-5.0); ALK PHOS 62 U/L (45-117); ANION GAP 11 (8-16); BILIRUBIN,TOTAL 0.2 mg/dL (0.2-1.0); BLOOD UREA NITROGEN 10 mg/dL (7-18); CALCIUM 9.4 mg/dL (8.5-10.1); CO2 26 mmol/L (21-32); CREATININE 0.9 mg/dL (0.55-1.02); GLUCOSE,RANDOM 90 mg/dL (74-106); SGOT/AST 19 U/L (15-37); SGPT/ALT 18 U/L (12-78); TOT PROT 7.4 g/dl (6.4-8.2)
[2017-10-16] MEDS ORDERED: SUMAtriptan SUCCINATE 25 MG TABLET PO ONE (11:12)
--- NOTE | 2017-10-16 11:18 | PN ---
S CIWA - CIWA Score Nausea/Vomitin-No Nausea/No Vomiting Muscle Tremors: 4-Moderate,w/Arms Extend Anxiety: 3 Agitation: 3 Paroxysmal Sweats: 3 Orientation: 0-Oriented Tacttile Disturbances: 0-None Auditory Disturbances: 0-None Visual Disturbances: 0-None Headache: 2-Mild CIWA-Ar Total Score: 15 S Progress Note (SOAP) Subjective: sweats shakes interrupted sleep agitation headache body aches knee pain Objective: 10/16/17 11:15 Vital Signs Temperature 98.2 F 10/16/17 07:08 Pulse Rate 71 10/16/17 07:08 Respiratory Rate 18 10/16/17 07:08 Blood Pressure 100/52 10/16/17 07:08 O2 Sat by Pulse Oximetry (%) Laboratory Tests 10/15/17 10/15/17 10/16/17 13:30 16:00 06:00 WBC 6.8 RBC 4.18 Hgb 11.6 Hct 35.7 MCV 85.3 MCH 27.8 MCHC 32.6 RDW 15.8 H Plt Count 276 D MPV 8.1 Sodium Potassium Chloride Carbon Dioxide Anion Gap BUN Creatinine Creat Clearance w eGFR Random Glucose Calcium Total Bilirubin AST ALT Alkaline Phosphatase Total Protein Albumin Urine Color Yellow Urine Appearance Cloudy Urine pH 8.0 Ur Specific [place] 1.014 Urine Protein Negative Urine Glucose (UA) Negative Urine Ketones Negative Urine Blood Negative Urine Nitrite Negative Urine Bilirubin Negative Urine Urobilinogen Negative Ur Leukocyte Esterase Trace Urine WBC (Auto) 13 Urine RBC (Auto) 4 Ur Epithelial Cells Rare Urine Yeast Few HIV 1&2 Antibody Screen Negative HIV P24 Antigen Negative 10/16/17 06:00 WBC RBC Hgb Hct MCV MCH MCHC RDW Plt Count MPV Sodium 140 Potassium 4.9 Chloride 103 Carbon Dioxide 26 Anion Gap 11 BUN 10 Creatinine 0.9aaox3 ambula Creat Clearance w eGFR > 60 Random Glucose 90 Calcium 9.4 Total Bilirubin 0.2 D AST 19 ALT 18 Alkaline Phosphatase 62 Total Protein 7.4 Albumin 3.8 Urine Color Urine Appearance Urine pH Ur Specific [place] Urine Protein Urine Glucose (UA) Urine Ketones Urine Blood Urine Nitrite Urine Bilirubin Urine Urobilinogen Ur Leukocyte Esterase Urine WBC (Auto) Urine RBC (Auto) Ur Epithelial Cells Urine Yeast HIV 1&2 Antibody Screen HIV P24 Antigen aaox3 ambulating with cane no acute distress Assessment: 10/16/17 11:16 withdrawal sx Plan: continue detox increase fluids lidocaine patch toney bandage roboxin imitrex x one encouraged safety with getting in and out of bed pt in agreement
[2017-10-16] MEDS: ACETAMINOPHEN 325 MG TABLET (FP) PO PRN (21:19)
[2017-10-16] MEDS: THIAMINE HCL 100 MG TABLET (FP) PO SCH (22:17)
[2017-10-16] MEDS: LIDOCAINE PATCH REMOVAL MC SCH (23:10)
[2017-10-17] MEDS: diazePAM 5 MG TABLET PO PRN ×2 (04:54→14:28)
[2017-10-17] MEDS: ACETAMINOPHEN 325 MG TABLET (FP) PO PRN (04:55)
[2017-10-17] MEDS: METHADONE HCL 40 MG DISPERSABLE TABLET PO SCH (07:00)
[2017-10-17] MEDS: PRENATAL VITAMINS W/ FOLIC ACID TABLET (FP) PO SCH (11:07)
[2017-10-17] MEDS: diazePAM 5 MG TABLET PO SCH ×2 (11:07→22:48)
[2017-10-17] MEDS: NICOTINE 14 MG/24 HOURS TOPICAL PATCH TD SCH (11:08)
[2017-10-17] MEDS: METHOCARBAMOL 500 MG TABLET PO SCH ×4 (11:08→22:48)
[2017-10-17] MEDS: LIDOCAINE 5% TOPICAL PATCH TP SCH (11:09)
--- NOTE | 2017-10-17 14:09 | PN ---
[facility] CIWA - CIWA Score Nausea/Vomitin Muscle Tremors: 3 Anxiety: 3 Agitation: 3 Paroxysmal Sweats: 2 Orientation: 0-Oriented Tacttile Disturbances: 0-None Auditory Disturbances: 0-None Visual Disturbances: 0-None Headache: 0-None Present CIWA-Ar Total Score: 14 S Progress Note (SOAP) Subjective: anxious tremors L knee pain Objective: 10/17/17 14:05 A & O x 3 seen ambulating in hallway with a limp Vital Signs Temperature 97.3 F L 10/17/17 10:00 Pulse Rate 68 10/17/17 10:00 Respiratory Rate 20 10/17/17 10:00 Blood Pressure 99/58 10/17/17 10:00 O2 Sat by Pulse Oximetry (%) Laboratory Last Values WBC 6.8 K/mm3 (4.0-10.0) 10/16/17 06:00 RBC 4.18 M/mm3 (3.60-5.2) 10/16/17 06:00 Hgb 11.6 GM/dL (10.7-15.3) 10/16/17 06:00 Hct 35.7 % (32.4-45.2) 10/16/17 06:00 MCV 85.3 fl (80-96) 10/16/17 06:00 MCH 27.8 pg (25.7-33.7) 10/16/17 06:00 MCHC 32.6 g/dl (32.0-36.0) 10/16/17 06:00 RDW 15.8 % (11.6-15.6) H 10/16/17 06:00 Plt Count 276 K/MM3 (134-434) D 10/16/17 06:00 MPV 8.1 fl (7.5-11.1) 10/16/17 06:00 Sodium 140 mmol/L (136-145) 10/16/17 06:00 Potassium 4.9 mmol/L (3.5-5.1) 10/16/17 06:00 Chloride 103 mmol/L (98-107) 10/16/17 06:00 Carbon Dioxide 26 mmol/L (21-32) 10/16/17 06:00 Anion Gap 11 (8-16) 10/16/17 06:00 BUN 10 mg/dL (7-18) 10/16/17 06:00 Creatinine 0.9 mg/dL (0.55-1.02) 10/16/17 06:00 Creat Clearance w eGFR > 60 (>60) 10/16/17 06:00 Random Glucose 90 mg/dL (74-106) 10/16/17 06:00 Calcium 9.4 mg/dL (8.5-10.1) 10/16/17 06:00 Total Bilirubin 0.2 mg/dL (0.2-1.0) D 10/16/17 06:00 AST 19 U/L (15-37) 10/16/17 06:00 ALT 18 U/L (12-78) 10/16/17 06:00 Alkaline Phosphatase 62 U/L (45-117) 10/16/17 06:00 Total Protein 7.4 g/dl (6.4-8.2) 10/16/17 06:00 Albumin 3.8 g/dl (3.4-5.0) 10/16/17 06:00 Urine Color Yellow 10/15/17 16:00 Urine Appearance Cloudy 10/15/17 16:00 Urine pH 8.0 (5.0-8.0) 10/15/17 16:00 Ur Specific [place] 1.014 (1.001-1.035) 10/15/17 16:00 Urine Protein Negative (NEGATIVE) 10/15/17 16:00 Urine Glucose (UA) Negative (NEGATIVE) 10/15/17 16:00 Urine Ketones Negative (NEGATIVE) 10/15/17 16:00 Urine Blood Negative (NEGATIVE) 10/15/17 16:00 Urine Nitrite Negative (NEGATIVE) 10/15/17 16:00 Urine Bilirubin Negative (NEGATIVE) 10/15/17 16:00 Urine Urobilinogen Negative mg/dL (0.2-1.0) 10/15/17 16:00 Ur Leukocyte Esterase Trace (NEGATIVE) 10/15/17 16:00 Urine WBC (Auto) 13 /hpf (3-5) 10/15/17 16:00 Urine RBC (Auto) 4 /hpf (0-3) 10/15/17 16:00 Ur Epithelial Cells Rare /HPF (FEW) 10/15/17 16:00 Urine Yeast Few 10/15/17 16:00 RPR Titer Nonreactive (NONREACTIVE) 10/16/17 06:00 HIV 1&2 Antibody Screen Negative 10/15/17 13:30 HIV P24 Antigen Negative 10/15/17 13:30 labs noted Assessment: 10/17/17 14:07 withdrawal sx Plan: continue detox RICE to L knee Motrin 800mg PRN cane for ambuation
[2017-10-17] MEDS ORDERED: IBUPROFEN 400 MG TABLET (FP) PO PRN (14:11)
--- NOTE | 2017-10-17 14:19 | PN ---
BHS Progress Note Note: pt educated to apply RICE on affected L knee as follows Rest (use cane to ambulate when necessary Ice as needed Compress it with the toney wrap Elevate frequently
[2017-10-17] MEDS: THIAMINE HCL 100 MG TABLET (FP) PO SCH (22:48)
[2017-10-17] MEDS: IBUPROFEN 400 MG TABLET (FP) PO PRN (22:49)
[2017-10-17] MEDS: LIDOCAINE PATCH REMOVAL MC SCH (22:50)
[2017-10-18] MEDS: METHADONE HCL 40 MG DISPERSABLE TABLET PO SCH (05:50)
--- NOTE | 2017-10-18 10:25 | PN ---
BHS Progress Note (SOAP) Subjective: alert oriented x 3 calm tolerates food and fluid well Objective: 10/18/17 10:22 Vital Signs Temperature 97.9 F 10/18/17 06:00 Pulse Rate 68 10/18/17 06:00 Respiratory Rate 16 10/18/17 06:00 Blood Pressure 118/75 10/18/17 06:00 O2 Sat by Pulse Oximetry (%) Laboratory Last Values WBC 6.8 K/mm3 (4.0-10.0) 10/16/17 06:00 RBC 4.18 M/mm3 (3.60-5.2) 10/16/17 06:00 Hgb 11.6 GM/dL (10.7-15.3) 10/16/17 06:00 Hct 35.7 % (32.4-45.2) 10/16/17 06:00 MCV 85.3 fl (80-96) 10/16/17 06:00 MCH 27.8 pg (25.7-33.7) 10/16/17 06:00 MCHC 32.6 g/dl (32.0-36.0) 10/16/17 06:00 RDW 15.8 % (11.6-15.6) H 10/16/17 06:00 Plt Count 276 K/MM3 (134-434) D 10/16/17 06:00 MPV 8.1 fl (7.5-11.1) 10/16/17 06:00 Sodium 140 mmol/L (136-145) 10/16/17 06:00 Potassium 4.9 mmol/L (3.5-5.1) 10/16/17 06:00 Chloride 103 mmol/L (98-107) 10/16/17 06:00 Carbon Dioxide 26 mmol/L (21-32) 10/16/17 06:00 Anion Gap 11 (8-16) 10/16/17 06:00 BUN 10 mg/dL (7-18) 10/16/17 06:00 Creatinine 0.9 mg/dL (0.55-1.02) 10/16/17 06:00 Creat Clearance w eGFR > 60 (>60) 10/16/17 06:00 Random Glucose 90 mg/dL (74-106) 10/16/17 06:00 Calcium 9.4 mg/dL (8.5-10.1) 10/16/17 06:00 Total Bilirubin 0.2 mg/dL (0.2-1.0) D 10/16/17 06:00 AST 19 U/L (15-37) 10/16/17 06:00 ALT 18 U/L (12-78) 10/16/17 06:00 Alkaline Phosphatase 62 U/L (45-117) 10/16/17 06:00 Total Protein 7.4 g/dl (6.4-8.2) 10/16/17 06:00 Albumin 3.8 g/dl (3.4-5.0) 10/16/17 06:00 Urine Color Yellow 10/15/17 16:00 Urine Appearance Cloudy 10/15/17 16:00 Urine pH 8.0 (5.0-8.0) 10/15/17 16:00 Ur Specific [place] 1.014 (1.001-1.035) 10/15/17 16:00 Urine Protein Negative (NEGATIVE) 10/15/17 16:00 Urine Glucose (UA) Negative (NEGATIVE) 10/15/17 16:00 Urine Ketones Negative (NEGATIVE) 10/15/17 16:00 Urine Blood Negative (NEGATIVE) 10/15/17 16:00 Urine Nitrite Negative (NEGATIVE) 10/15/17 16:00 Urine Bilirubin Negative (NEGATIVE) 10/15/17 16:00 Urine Urobilinogen Negative mg/dL (0.2-1.0) 10/15/17 16:00 Ur Leukocyte Esterase Trace (NEGATIVE) 10/15/17 16:00 Urine WBC (Auto) 13 /hpf (3-5) 10/15/17 16:00 Urine RBC (Auto) 4 /hpf (0-3) 10/15/17 16:00 Ur Epithelial Cells Rare /HPF (FEW) 10/15/17 16:00 Urine Yeast Few 10/15/17 16:00 RPR Titer Nonreactive (NONREACTIVE) 10/16/17 06:00 HIV 1&2 Antibody Screen Negative 10/15/17 13:30 HIV P24 Antigen Negative 10/15/17 13:30 lab noted Assessment: 10/18/17 10:24 mild withdrawal sx Plan: medically supervised detox
[2017-10-18] MEDS: diazePAM 5 MG TABLET PO SCH ×2 (11:02→23:04)
[2017-10-18] MEDS: NICOTINE 14 MG/24 HOURS TOPICAL PATCH TD SCH (11:03)
[2017-10-18] MEDS: METHOCARBAMOL 500 MG TABLET PO SCH ×4 (11:03→23:04)
[2017-10-18] MEDS: PRENATAL VITAMINS W/ FOLIC ACID TABLET (FP) PO SCH (11:03)
[2017-10-18] MEDS: LIDOCAINE 5% TOPICAL PATCH TP SCH (11:03)
[2017-10-18] MEDS: THIAMINE HCL 100 MG TABLET (FP) PO SCH (23:04)
[2017-10-18] MEDS: LIDOCAINE PATCH REMOVAL MC SCH (23:08)
[2017-10-19] MEDS: IBUPROFEN 400 MG TABLET (FP) PO PRN (06:11)
[2017-10-19] MEDS: METHADONE HCL 40 MG DISPERSABLE TABLET PO SCH (06:11)
[2017-10-19] MEDS: PRENATAL VITAMINS W/ FOLIC ACID TABLET (FP) PO SCH (09:20)
[2017-10-19] MEDS: METHOCARBAMOL 500 MG TABLET PO SCH (09:21)
--- NOTE | 2017-10-19 09:28 | DS ---
[facility] Detox Discharge Summary Admission Date: 10/15/17 Discharge Date: 10/19/17 - History Present History: Alcohol Dependence - Physical Exam Results Vital Signs: Vital Signs Temperature 97.8 F 10/19/17 06:26 Pulse Rate 72 10/19/17 06:26 Respiratory Rate 18 10/19/17 06:26 Blood Pressure 110/74 10/19/17 06:26 O2 Sat by Pulse Oximetry (%) Pertinent Admission Physical Exam Findings: withdrawal sx Laboratory Last Values WBC 6.8 K/mm3 (4.0-10.0) 10/16/17 06:00 RBC 4.18 M/mm3 (3.60-5.2) 10/16/17 06:00 Hgb 11.6 GM/dL (10.7-15.3) 10/16/17 06:00 Hct 35.7 % (32.4-45.2) 10/16/17 06:00 MCV 85.3 fl (80-96) 10/16/17 06:00 MCH 27.8 pg (25.7-33.7) 10/16/17 06:00 MCHC 32.6 g/dl (32.0-36.0) 10/16/17 06:00 RDW 15.8 % (11.6-15.6) H 10/16/17 06:00 Plt Count 276 K/MM3 (134-434) D 10/16/17 06:00 MPV 8.1 fl (7.5-11.1) 10/16/17 06:00 Sodium 140 mmol/L (136-145) 10/16/17 06:00 Potassium 4.9 mmol/L (3.5-5.1) 10/16/17 06:00 Chloride 103 mmol/L (98-107) 10/16/17 06:00 Carbon Dioxide 26 mmol/L (21-32) 10/16/17 06:00 Anion Gap 11 (8-16) 10/16/17 06:00 BUN 10 mg/dL (7-18) 10/16/17 06:00 Creatinine 0.9 mg/dL (0.55-1.02) 10/16/17 06:00 Creat Clearance w eGFR > 60 (>60) 10/16/17 06:00 Random Glucose 90 mg/dL (74-106) 10/16/17 06:00 Calcium 9.4 mg/dL (8.5-10.1) 10/16/17 06:00 Total Bilirubin 0.2 mg/dL (0.2-1.0) D 10/16/17 06:00 AST 19 U/L (15-37) 10/16/17 06:00 ALT 18 U/L (12-78) 10/16/17 06:00 Alkaline Phosphatase 62 U/L (45-117) 10/16/17 06:00 Total Protein 7.4 g/dl (6.4-8.2) 10/16/17 06:00 Albumin 3.8 g/dl (3.4-5.0) 10/16/17 06:00 Urine Color Yellow 10/15/17 16:00 Urine Appearance Cloudy 10/15/17 16:00 Urine pH 8.0 (5.0-8.0) 10/15/17 16:00 Ur Specific [place] 1.014 (1.001-1.035) 10/15/17 16:00 Urine Protein Negative (NEGATIVE) 10/15/17 16:00 Urine Glucose (UA) Negative (NEGATIVE) 10/15/17 16:00 Urine Ketones Negative (NEGATIVE) 10/15/17 16:00 Urine Blood Negative (NEGATIVE) 10/15/17 16:00 Urine Nitrite Negative (NEGATIVE) 10/15/17 16:00 Urine Bilirubin Negative (NEGATIVE) 10/15/17 16:00 Urine Urobilinogen Negative mg/dL (0.2-1.0) 10/15/17 16:00 Ur Leukocyte Esterase Trace (NEGATIVE) 10/15/17 16:00 Urine WBC (Auto) 13 /hpf (3-5) 10/15/17 16:00 Urine RBC (Auto) 4 /hpf (0-3) 10/15/17 16:00 Ur Epithelial Cells Rare /HPF (FEW) 10/15/17 16:00 Urine Yeast Few 10/15/17 16:00 RPR Titer Nonreactive (NONREACTIVE) 10/16/17 06:00 HIV 1&2 Antibody Screen Negative 10/15/17 13:30 HIV P24 Antigen Negative 10/15/17 13:30 lab noted - Treatment Hospital Course: Detox Protocol Followed, Detoxed Safely, Responded well, Discharged Condition Good, Rehab Referral Accepted Patient has Accepted a Rehab Referral to: [facility] - Medication Discharge Medications: Ambulatory Orders traZODone HCL [Desyrel -] 100 mg PO HS #30 tablet 08/31/17 - Diagnosis (1) Sedative, hypnotic or anxiolytic dependence with withdrawal, uncomplicated Current Visit: Yes Status: Acute (2) Alcohol dependence with uncomplicated withdrawal Current Visit: Yes Status: Acute (3) Methadone maintenance therapy patient Current Visit: Yes Status: Chronic (4) Depressed Current Visit: Yes Status: Suspected Qualifiers: Depression Type: dysthymia Qualified Code(s): F34.1 - Dysthymic disorder (5) Hepatitis C Current Visit: Yes Status: Chronic Qualifiers: Viral hepatitis chronicity: chronic Hepatic coma status: without hepatic coma Qualified Code(s): B18.2 - Chronic viral hepatitis C - AMA Did Patient Leave Against Medical Advice: No
[2017-10-19] MEDS ORDERED: diazePAM 5 MG TABLET PO SCH (10:00)
[2017-10-19 11:23] VITALS: BP 123/64; PULSE 70; TEMP 98.1
== END 2017-10-19 09:37 | disposition home or self-care (01) | DRG 773 ==
LOC: YASAS 08:22 → Y6N 11:05
PROVIDERS: ADMIT Internal Medicine; ATTEND Internal Medicine
PROC: HZ2ZZZZ Detoxification Services for Substance Abuse Treatment (ICD-10-PCS; principal; 2017-10-15)
DX: F11.20 Opioid dependence, uncomplicated (principal); F10.230 Alcohol dependence with withdrawal, uncomplicated; F13.230 Sedative, hypnotic or anxiolytic dependence with withdrawal, uncomplicated; F14.20 Cocaine dependence, uncomplicated; F34.1 Dysthymic disorder; F19.24 Other psychoactive substance dependence with psychoactive substance-induced mood disorder; B18.2 Chronic viral hepatitis C; Z59.0 Homelessness
CPT/HCPCS: 36415; 80053; 81003; 81015; 85027; 86593; 87389

== ENCOUNTER 2018-03-19 12:11 | Inpatient (IN) | payer OTHER ==
[2018-03-19 12:18] VITALS: BMI 27.4
--- NOTE | 2018-03-19 15:15 | HP ---
CIWA Score - CIWA Score Nausea/Vomitin-No Nausea/No Vomiting Muscle Tremors: None Anxiety: 5 Agitation: 5 Paroxysmal Sweats: 3 Orientation: 0-Oriented Tacttile Disturbances: 3-Moderate Itch/Numb/Burn (SKIN CRAWLS) Auditory Disturbances: 0-None Visual Disturbances: 0-None Headache: 0-None Present CIWA-Ar Total Score: 16 Admission ROS S - HPI Chief Complaint: ALCOHOL WITHDRAWAL SX. "I AM HERE TO GET CLEAN". Allergies/Adverse Reactions: Allergies Allergy/AdvReac Type Severity Reaction Status Date / Time No Known Allergies Allergy Verified 03/19/18 14:05 History of Present Illness: 32 Y/O FEMALE WITH A HX OF ALCOHOL,COCAINE AND MARIJUANA DEPENDENCE SEEKING DETOX TX. [facility] MG PO DAILY AND LAST DOSE TODAY. PT HAS PREVIOUS TX EPISODES. PT IS SELF REFERRED TO SEEK HELP FOR ADDICTION. Exam Limitations: No Limitations - Ebola screening Have you traveled outside of the country in the last 21 days: No Have you had contact with anyone from an Ebola affected area: No Have you been sick,other than usual withdrawal symptoms: No Do you have a fever: No - Review of Systems Constitutional: Chills, Loss of Appetite, Night Sweats, Changes in sleep EENT: reports: Nose Congestion, Dental Problems (MISSING TEETH/CAVITIES IN THE PAST) Respiratory: reports: Cough (X 1 WEEK), Productive cough (YELLOW SPUTUM) Cardiac: reports: Lightheadedness GI: reports: Diarrhea, Nausea, Poor Appetite, Poor Fluid Intake, Vomiting, Abdominal cramping : reports: Frequency Musculoskeletal: reports: Back Pain (LBP) Integumentary: reports: No Symptoms Reported Neuro: reports: Tremors, Unsteady Gait, Dizziness Endocrine: reports: No Symptoms Reported Hematology: reports: No Symptoms Reported Psychiatric: reports: Orientated x3, Anxious, Depressed Other Systems: Reviewed and Negative Patient History - Patient Medical History Hx Anemia: No Hx Asthma: No Hx Chronic Obstructive Pulmonary Disease (COPD): No Hx Cancer: No Hx Cardiac Disorders: No Hx Congestive Heart Failure: No Hx Hypertension: No Hx Hypercholesterolemia: No Hx Pacemaker: No HX Cerebrovascular Accident: No Hx Seizures: No Hx Dementia: No Hx Diabetes: No Hx Gastrointestinal Disorders: No Hx Liver Disease: No Hx Genitourinary Disorders: No Hx Sexually Transmitted Disorders: No Hx Renal Disease (ESRD): No Hx Thyroid Disease: No Hx Human Immunodeficiency Virus (HIV): No (NEGATIVE HX last 07/13/17) Hx Hepatitis C: Yes (NOT YET TREATMENT) Hx Depression: Yes (NEVER SEEN A [facility] MD/ NOT EVALUATED; CHERS JAYESH HERE ON THIS ADMISSION.) Hx Suicide Attempt: No (DENIES S/I) Hx Bipolar Disorder: No Hx Schizophrenia: No - Patient Surgical History Past Surgical History: Yes Hx Neurologic Surgery: No Hx Cataract Extraction: No Hx Cardiac Surgery: No Hx Lung Surgery: No Hx Breast Surgery: No Hx Breast Biopsy: No Hx Abdominal Surgery: No Hx Appendectomy: No Hx Cholecystectomy: No Hx Genitourinary Surgery: No Hx Section: No Hx Orthopedic Surgery: Yes (fx, right wrist in 2013) Hx Hysterectomy: No Anesthesia Reaction: No - PPD History Previous Implant?: Yes Documented Results: Negative w/proof Implanted On Prior [facility] Admission?: Yes Date: 12/10/17 Results: 0 mm PPD to be Administered?: No - Reproductive History Patient is a Female of Child Bearing Age (11 -55 yrs old): Yes Last Menstrual Period: 02/23/18 Patient : No - Smoking Cessation Smoking history: Current every day smoker Have you smoked in the past 12 months: Yes Aproximately how many cigarettes per day: 5 Cigars Per Day: 0 Hx Chewing Tobacco Use: No Initiated information on smoking cessation: Yes 'Breaking Loose' booklet given: 03/19/18 - Substance & Tx. History Hx Alcohol Use: Yes (VODKA) Hx Substance Use: Yes (COCAINE/MARIJUANA) Substance Use Type: Alcohol, Cocaine, Marijuana Hx Substance Use Treatment: Yes (LAST TX AT [facility]) - Substances Abused Cocaine Route: Injection Frequency: Daily Amount used: $200 Age of first use: 17 Date of Last Use: 03/18/18 Alcohol-vodka Route: Oral Frequency: Daily Amount used: 2 pts. Age of first use: 15 Date of Last Use: 03/19/18 Marijuana Route: Smoking Frequency: 1-2 times per week Amount used: $10 Age of first use: 15 Date of Last Use: 03/12/18 Family Disease History - Family Disease History Family Disease History: Other: Father (HTN), Mother (no contact) Admission Physical Exam BHS - Vital Signs Vital Signs: Vital Signs - 24 hr 03/19/18 12:14 Temperature 96.8 F L Pulse Rate 54 L Respiratory 18 Rate Blood Pressure 107/69 - Physical General Appearance: Yes: Moderate Distress, Irritable, Sweating, Anxious, Other ( RESTLESS/SKIN ITCHING) HEENTM: Yes: EOMI, Normocephalic, KARIE, Pharynx Normal, Nasal Congestion Respiratory: Yes: Chest Non-Tender, Lungs Clear, Normal Breath Sounds, No Respiratory Distress Neck: Yes: Supple, Trachea in good position Breast: Yes: Breast Exam Deferred Cardiology: Yes: Regular Rhythm, S1, S2, Bradycardia (REPORTS LOW PULSE HX "I WALK A LOT".) Abdominal: Yes: Normal Bowel Sounds, Non Tender, Soft Genitourinary: Yes: Other (N/C) Back: Yes: Within Normal Limits Musculoskeletal: Yes: full range of Motion, Gait Steady Extremities: Yes: Normal Range of Motion, Non-Tender Neurological: Yes: billing associate II-XII NML intact, Fully Oriented, Alert, Motor Strength 5/5 Integumentary: Yes: Warm, Moist, Other (SMALL ABRASION TO RIGHT KNEE AREA) Lymphatic: Yes: Within Normal Limits - Diagnostic (1) Alcohol dependence with uncomplicated withdrawal Current Visit: Yes Status: Acute (2) Cocaine dependence, uncomplicated Current Visit: Yes Status: Acute (3) Hepatitis C Current Visit: Yes Status: Chronic Qualifiers: Viral hepatitis chronicity: unspecified Hepatic coma status: without hepatic coma Qualified Code(s): B19.20 - Unspecified viral hepatitis C without hepatic coma (4) Methadone maintenance therapy patient Current Visit: Yes Status: Chronic (5) Depressed Current Visit: Yes Status: Suspected Qualifiers: Depression Type: unspecified Qualified Code(s): F32.9 - Major depressive disorder, single episode, unspecified Comment: PT REQUESTS PSYCH CONSULT. Cleared for Admission S - Detox or Rehab [facility] Level of Care: Medically Managed Detox Regimen/Protocol: Librium [facility] Breath Alcohol Content Breath Alcohol Content: 0 Urine Pregancy Test - Result Urine Test Results: Negative- NO Line Present Urine Drug Screen - Results Drug Screen Negative: No Urine Drug Screen Results: THC-Marijuana, MANI-Cocaine, OPI-Opiates, MTD- Methadone
[2018-03-19] MEDS ORDERED: chlordiazePOXIDE HCL 25 MG CAPSULE PO PRN (15:28)
[2018-03-19] MEDS ORDERED: LOPERAMIDE HCL 2 MG CAPSULE PO PRN (15:28)
[2018-03-19] MEDS ORDERED: MAGNESIUM HYDROX 2400MG/30ML ORAL SUSPENSION 30 ML CUP PO PRN (15:28)
[2018-03-19] MEDS ORDERED: guaiFENesin/D-METHORPHAN HB 10 ML UNIT-DOSE CUPS PO PRN (15:28)
[2018-03-19] MEDS ORDERED: IBUPROFEN 400 MG TABLET (FP) PO PRN (15:28)
[2018-03-19] MEDS ORDERED: MAGNESIUM CITRATE 300 ML BOTTLE PO PRN (15:28)
[2018-03-19] MEDS ORDERED: P-EPHED 60MG/TRIPROLIDI 2.5MG TABLET PO PRN (15:28)
[2018-03-19] MEDS ORDERED: ACETAMINOPHEN 325 MG TABLET (FP) PO PRN (15:28)
[2018-03-19] MEDS ORDERED: MAG HYDROX/AL HYDROX/SIMETH 30 ML UNIT-DOSE CUP PO PRN (15:28)
[2018-03-19] MEDS ORDERED: MENTHOL/PHENOL 1 EACH UD MM PRN (15:28)
[2018-03-19] MEDS: chlordiazePOXIDE HCL 25 MG CAPSULE PO SCH ×2 (17:35→22:29)
[2018-03-19] MEDS: NICOTINE 14 MG/24 HOURS TOPICAL PATCH TD SCH (19:04)
[2018-03-19] MEDS: MELATONIN 5 MG TABLETS PO PRN (22:28)
[2018-03-19] MEDS: THIAMINE HCL 100 MG TABLET (FP) PO SCH (22:28)
[2018-03-20] MEDS: chlordiazePOXIDE HCL 25 MG CAPSULE PO SCH ×4 (05:55→22:16)
[2018-03-20] MEDS ORDERED: METHADONE HCL 10 MG TABLET PO SCH (09:45)
[2018-03-20] MEDS ORDERED: METHADONE HCL 10 MG TABLET ONE (09:55)
[2018-03-20] MEDS ORDERED: METHADONE HCL 5 MG TABLET ONE (09:55)
[2018-03-20] MEDS ORDERED: METHADONE HCL 40 MG DISPERSABLE TABLET ONE (09:55)
[2018-03-20 10:15] LABS: HEMATOCRIT 36.8 % (32.4-45.2); HEMOGLOBIN 12.2 GM/dL (10.7-15.3); MCH 28.8 pg (25.7-33.7); MCHC 33.2 g/dl (32.0-36.0); MEAN CELL VOLUME 86.6 fl (80-96); MEAN PLT VOLUME 7.5 fl (7.5-11.1); PLATELET COUNT 274 K/MM3 (134-434); RBC 4.25 M/mm3 (3.60-5.2); RDW 13.7 % (11.6-15.6); WHITE BLOOD COUNT 4.7 K/mm3 (4.0-10.0)
[2018-03-20] MEDS: METHADONE 40 MG, METHADONE 20 MG, METHADONE 5 MG PO SCH (10:57)
[2018-03-20] MEDS: PRENATAL VITAMINS W/ FOLIC ACID TABLET (FP) PO SCH (10:58)
[2018-03-20] MEDS: NICOTINE 14 MG/24 HOURS TOPICAL PATCH TD SCH (10:59)
--- NOTE | 2018-03-20 13:44 | PN ---
[facility] CIWA - CIWA Score Nausea/Vomitin Muscle Tremors: 2 Anxiety: 3 Agitation: 3 Paroxysmal Sweats: 2 Orientation: 0-Oriented Tacttile Disturbances: 2-Mild Itch/Numbness/Burn Auditory Disturbances: 0-None Visual Disturbances: 0-None Headache: 2-Mild CIWA-Ar Total Score: 16 [facility] Progress Note (SOAP) Subjective: Cough, irritability and sleep interruption Objective: 03/20/18 13:43 Last Vital Signs Temp Pulse Resp BP Pulse Ox 98.1 F 50 L 8 L 105/65 03/20/18 10:36 03/20/18 10:36 03/20/18 10:36 03/20/18 10:36 Laboratory Last Values WBC 4.7 K/mm3 (4.0-10.0) 03/20/18 08:00 RBC 4.25 M/mm3 (3.60-5.2) 03/20/18 08:00 Hgb 12.2 GM/dL (10.7-15.3) 03/20/18 08:00 Hct 36.8 % (32.4-45.2) 03/20/18 08:00 MCV 86.6 fl (80-96) 03/20/18 08:00 MCH 28.8 pg (25.7-33.7) 03/20/18 08:00 MCHC 33.2 g/dl (32.0-36.0) 03/20/18 08:00 RDW 13.7 % (11.6-15.6) 03/20/18 08:00 Plt Count 274 K/MM3 (134-434) 03/20/18 08:00 MPV 7.5 fl (7.5-11.1) 03/20/18 08:00 RPR Titer Nonreactive (NONREACTIVE) 03/20/18 08:00 HIV 1&2 Antibody Screen Negative 03/20/18 08:00 HIV P24 Antigen Negative 03/20/18 08:00 Labs noted, chemistry pending Assessment: 03/20/18 13:43 Withdrawal sx Cough; lungs clear in all [place], denies SOB Plan: Continue detox Cough medicine as ordered
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
[2018-03-20 15:52] LABS: ALBUMIN 3.5 g/dl (3.4-5.0); ANION GAP 4 (8-16); BILIRUBIN,TOTAL 0.2 mg/dL (0.2-1.0); BLOOD UREA NITROGEN 6 mg/dL (7-18); CALCIUM 8.9 mg/dL (8.5-10.1); CHLORIDE 108 mmol/L (98-107); CO2 30 mmol/L (21-32); CREATININE 0.9 mg/dL (0.55-1.02); GLUCOSE,RANDOM 82 mg/dL (74-106); POTASSIUM 4.7 mmol/L (3.5-5.1); SGOT/AST 15 U/L (15-37); SGPT/ALT 14 U/L (12-78); SODIUM 142 mmol/L (136-145); TOT PROT 7.1 g/dl (6.4-8.2)
[2018-03-20 15:53] LABS: ALK PHOS 69 U/L (45-117)
[2018-03-20] MEDS: traZODone HCL 50 MG TABLET (FP) PO SCH (22:16)
[2018-03-20] MEDS: THIAMINE HCL 100 MG TABLET (FP) PO SCH (22:16)
[2018-03-20] MEDS: MELATONIN 5 MG TABLETS PO PRN (22:16)
[2018-03-21] MEDS ORDERED: METHADONE HCL 5 MG TABLET ONE (05:09)
[2018-03-21] MEDS ORDERED: METHADONE HCL 40 MG DISPERSABLE TABLET ONE (05:09)
[2018-03-21] MEDS ORDERED: METHADONE HCL 10 MG TABLET ONE (05:09)
[2018-03-21] MEDS: METHADONE 40 MG, METHADONE 20 MG, METHADONE 5 MG PO SCH (05:54)
[2018-03-21] MEDS: chlordiazePOXIDE HCL 25 MG CAPSULE PO SCH ×2 (05:55→10:20)
[2018-03-21] MEDS: PRENATAL VITAMINS W/ FOLIC ACID TABLET (FP) PO SCH (10:20)
[2018-03-21] MEDS: NICOTINE 14 MG/24 HOURS TOPICAL PATCH TD SCH (10:20)
[2018-03-21] MEDS: NICOTINE POLACRILEX 2 MG GUM BUC PRN (10:20)
--- NOTE | 2018-03-21 12:26 | PN ---
[facility] CIWA - CIWA Score Nausea/Vomitin-No Nausea/No Vomiting Muscle Tremors: 4-Moderate,w/Arms Extend Anxiety: 3 Agitation: 4-Moderately Restless Paroxysmal Sweats: 1-Minimal Palms Moist Orientation: 0-Oriented Tacttile Disturbances: 0-None Auditory Disturbances: 0-None Visual Disturbances: 0-None Headache: 0-None Present CIWA-Ar Total Score: 12 [facility] Progress Note (SOAP) Subjective: sweat tremor restlessness anxiety trouble sleep at night Objective: 03/21/18 12:25 Vital Signs Temperature 97.9 F 03/21/18 06:00 Pulse Rate 54 L 03/21/18 06:00 Respiratory Rate 18 03/21/18 06:00 Blood Pressure 117/59 03/21/18 06:00 O2 Sat by Pulse Oximetry (%) Laboratory Last Values WBC 4.7 K/mm3 (4.0-10.0) 03/20/18 08:00 RBC 4.25 M/mm3 (3.60-5.2) 03/20/18 08:00 Hgb 12.2 GM/dL (10.7-15.3) 03/20/18 08:00 Hct 36.8 % (32.4-45.2) 03/20/18 08:00 MCV 86.6 fl (80-96) 03/20/18 08:00 MCH 28.8 pg (25.7-33.7) 03/20/18 08:00 MCHC 33.2 g/dl (32.0-36.0) 03/20/18 08:00 RDW 13.7 % (11.6-15.6) 03/20/18 08:00 Plt Count 274 K/MM3 (134-434) 03/20/18 08:00 MPV 7.5 fl (7.5-11.1) 03/20/18 08:00 Sodium 142 mmol/L (136-145) 03/20/18 08:00 Potassium 4.7 mmol/L (3.5-5.1) 03/20/18 08:00 Chloride 108 mmol/L (98-107) H 03/20/18 08:00 Carbon Dioxide 30 mmol/L (21-32) 03/20/18 08:00 Anion Gap 4 (8-16) L 03/20/18 08:00 BUN 6 mg/dL (7-18) L 03/20/18 08:00 Creatinine 0.9 mg/dL (0.55-1.02) 03/20/18 08:00 Creat Clearance w eGFR > 60 (>60) 03/20/18 08:00 Random Glucose 82 mg/dL (74-106) 03/20/18 08:00 Calcium 8.9 mg/dL (8.5-10.1) 03/20/18 08:00 Total Bilirubin 0.2 mg/dL (0.2-1.0) 03/20/18 08:00 AST 15 U/L (15-37) 03/20/18 08:00 ALT 14 U/L (12-78) 03/20/18 08:00 Alkaline Phosphatase 69 U/L (45-117) 03/20/18 08:00 Total Protein 7.1 g/dl (6.4-8.2) 03/20/18 08:00 Albumin 3.5 g/dl (3.4-5.0) 03/20/18 08:00 RPR Titer Nonreactive (NONREACTIVE) 03/20/18 08:00 HIV 1&2 Antibody Screen Negative 03/20/18 08:00 HIV P24 Antigen Negative 03/20/18 08:00 lab noted Assessment: 03/21/18 12:25 withdrawal sx Plan: continue detox
[2018-03-21] MEDS: chlordiazePOXIDE 5 MG CAPSULE PO SCH ×2 (18:04→22:16)
[2018-03-21] MEDS: THIAMINE HCL 100 MG TABLET (FP) PO SCH (22:16)
[2018-03-21] MEDS: traZODone HCL 50 MG TABLET (FP) PO SCH (22:16)
[2018-03-22] MEDS ORDERED: METHADONE HCL 40 MG DISPERSABLE TABLET ONE (04:21)
[2018-03-22] MEDS ORDERED: METHADONE HCL 10 MG TABLET ONE (04:21)
[2018-03-22] MEDS ORDERED: METHADONE HCL 5 MG TABLET ONE (04:21)
[2018-03-22] MEDS: chlordiazePOXIDE 5 MG CAPSULE PO SCH ×2 (05:27→10:29)
[2018-03-22] MEDS: METHADONE 40 MG, METHADONE 20 MG, METHADONE 5 MG PO SCH (05:27)
[2018-03-22] MEDS: NICOTINE POLACRILEX 2 MG GUM BUC PRN (10:29)
[2018-03-22] MEDS: PRENATAL VITAMINS W/ FOLIC ACID TABLET (FP) PO SCH (10:29)
[2018-03-22] MEDS: NICOTINE 14 MG/24 HOURS TOPICAL PATCH TD SCH (10:29)
--- NOTE | 2018-03-22 10:39 | PN ---
[facility] Progress Note (SOAP) Subjective: feeling better no tremor no gi distress sleep better at night social with peers in day room discuss aftercare Objective: 03/22/18 10:38 Vital Signs Temperature 99.1 F 03/22/18 09:56 Pulse Rate 69 03/22/18 09:56 Respiratory Rate 203 H 03/22/18 09:56 Blood Pressure 121/64 03/22/18 09:56 O2 Sat by Pulse Oximetry (%) Laboratory Last Values WBC 4.7 K/mm3 (4.0-10.0) 03/20/18 08:00 RBC 4.25 M/mm3 (3.60-5.2) 03/20/18 08:00 Hgb 12.2 GM/dL (10.7-15.3) 03/20/18 08:00 Hct 36.8 % (32.4-45.2) 03/20/18 08:00 MCV 86.6 fl (80-96) 03/20/18 08:00 MCH 28.8 pg (25.7-33.7) 03/20/18 08:00 MCHC 33.2 g/dl (32.0-36.0) 03/20/18 08:00 RDW 13.7 % (11.6-15.6) 03/20/18 08:00 Plt Count 274 K/MM3 (134-434) 03/20/18 08:00 MPV 7.5 fl (7.5-11.1) 03/20/18 08:00 Sodium 142 mmol/L (136-145) 03/20/18 08:00 Potassium 4.7 mmol/L (3.5-5.1) 03/20/18 08:00 Chloride 108 mmol/L (98-107) H 03/20/18 08:00 Carbon Dioxide 30 mmol/L (21-32) 03/20/18 08:00 Anion Gap 4 (8-16) L 03/20/18 08:00 BUN 6 mg/dL (7-18) L 03/20/18 08:00 Creatinine 0.9 mg/dL (0.55-1.02) 03/20/18 08:00 Creat Clearance w eGFR > 60 (>60) 03/20/18 08:00 Random Glucose 82 mg/dL (74-106) 03/20/18 08:00 Calcium 8.9 mg/dL (8.5-10.1) 03/20/18 08:00 Total Bilirubin 0.2 mg/dL (0.2-1.0) 03/20/18 08:00 AST 15 U/L (15-37) 03/20/18 08:00 ALT 14 U/L (12-78) 03/20/18 08:00 Alkaline Phosphatase 69 U/L (45-117) 03/20/18 08:00 Total Protein 7.1 g/dl (6.4-8.2) 03/20/18 08:00 Albumin 3.5 g/dl (3.4-5.0) 03/20/18 08:00 RPR Titer Nonreactive (NONREACTIVE) 03/20/18 08:00 HIV 1&2 Antibody Screen Negative 03/20/18 08:00 HIV P24 Antigen Negative 03/20/18 08:00 lab noted Assessment: 03/22/18 10:39 mild withdrawal sx Plan: medically supervised detox
[2018-03-22 11:05] LABS: URINE APPEARANCE CLOUDY; URINE BILIRUBIN NEGATIVE (<2.0 mg/dL); URINE COLOR LTYELLOW; URINE GLUCOSE (UA) NEGATIVE (NEGATIVE); URINE KETONE NEGATIVE (NEGATIVE); URINE NITRITE NEGATIVE (NEGATIVE); URINE PROTEIN NEGATIVE (NEGATIVE); URINE UROBILINOGEN NEGATIVE mg/dL (0.2-1.0)
[2018-03-22 11:07] LABS: URINE LEUK ESTERASE 2+ (NEGATIVE)
--- NOTE | 2018-03-22 11:10 | EKG ---
Test Reason : Blood Pressure : / mmHG Vent. Rate : 057 BPM Atrial Rate : 057 BPM P-R Int : 174 ms QRS Dur : 094 ms QT Int : 418 ms P-R-T Axes : 047 071 056 degrees QTc Int : 406 ms SINUS BRADYCARDIA OTHERWISE NORMAL ECG WHEN COMPARED WITH ECG OF 08-DEC-2017 15:06, NO SIGNIFICANT CHANGE WAS FOUND Confirmed by ZAHIRA BAUMANN MD ([id number]) on 03/22/2018 11:10:05 AM Referred By: Confirmed By:ZAHIRA BAUMANN MD
[2018-03-22 11:15] LABS: CALCIUM OXALATE CRYSTALS MODERATE /hpf (NONE SEEN); EPI CELLS MANY /HPF (FEW)
[2018-03-22] MEDS: chlordiazePOXIDE HCL 10 MG CAPSULE PO SCH ×2 (17:08→22:10)
[2018-03-22] MEDS: traZODone HCL 50 MG TABLET (FP) PO SCH (22:10)
[2018-03-22] MEDS: THIAMINE HCL 100 MG TABLET (FP) PO SCH (22:11)
[2018-03-23] MEDS ORDERED: METHADONE HCL 10 MG TABLET ONE (04:40)
[2018-03-23] MEDS ORDERED: METHADONE HCL 5 MG TABLET ONE (04:40)
[2018-03-23] MEDS ORDERED: METHADONE HCL 40 MG DISPERSABLE TABLET ONE (04:40)
[2018-03-23] MEDS: chlordiazePOXIDE HCL 10 MG CAPSULE PO SCH (05:45)
[2018-03-23] MEDS: METHADONE 40 MG, METHADONE 20 MG, METHADONE 5 MG PO SCH (05:45)
[2018-03-23 08:13] VITALS: BP 115/57; PULSE 66; TEMP 97.3
--- NOTE | 2018-03-23 08:59 | DS ---
[facility] Detox Discharge Summary Admission Date: 03/19/18 Discharge Date: 03/23/18 - History Present History: Alcohol Dependence Additional Comments: 32 years old female admitted on 03/18/18 for alcohol withdrawal sx completed alcohol detox regimen tolerated well denies alcohol withdrawal sx alert oriented x 3 no acute distress aftercare [facility] patient agrees to continue methadone 65 mg po daily for medical mental and addiction issues - Physical Exam Results Vital Signs: Vital Signs Temperature 97.3 F L 03/23/18 08:12 Pulse Rate 66 03/23/18 08:12 Respiratory Rate 18 03/23/18 08:12 Blood Pressure 115/57 03/23/18 08:12 O2 Sat by Pulse Oximetry (%) Pertinent Admission Physical Exam Findings: opiate withdrawal sx Vital Signs Temperature 97.3 F L 03/23/18 08:12 Pulse Rate 66 03/23/18 08:12 Respiratory Rate 18 03/23/18 08:12 Blood Pressure 115/57 03/23/18 08:12 O2 Sat by Pulse Oximetry (%) Laboratory Last Values WBC 4.7 K/mm3 (4.0-10.0) 03/20/18 08:00 RBC 4.25 M/mm3 (3.60-5.2) 03/20/18 08:00 Hgb 12.2 GM/dL (10.7-15.3) 03/20/18 08:00 Hct 36.8 % (32.4-45.2) 03/20/18 08:00 MCV 86.6 fl (80-96) 03/20/18 08:00 MCH 28.8 pg (25.7-33.7) 03/20/18 08:00 MCHC 33.2 g/dl (32.0-36.0) 03/20/18 08:00 RDW 13.7 % (11.6-15.6) 03/20/18 08:00 Plt Count 274 K/MM3 (134-434) 03/20/18 08:00 MPV 7.5 fl (7.5-11.1) 03/20/18 08:00 Sodium 142 mmol/L (136-145) 03/20/18 08:00 Potassium 4.7 mmol/L (3.5-5.1) 03/20/18 08:00 Chloride 108 mmol/L (98-107) H 03/20/18 08:00 Carbon Dioxide 30 mmol/L (21-32) 03/20/18 08:00 Anion Gap 4 (8-16) L 03/20/18 08:00 BUN 6 mg/dL (7-18) L 03/20/18 08:00 Creatinine 0.9 mg/dL (0.55-1.02) 03/20/18 08:00 Creat Clearance w eGFR > 60 (>60) 03/20/18 08:00 Random Glucose 82 mg/dL (74-106) 03/20/18 08:00 Calcium 8.9 mg/dL (8.5-10.1) 03/20/18 08:00 Total Bilirubin 0.2 mg/dL (0.2-1.0) 03/20/18 08:00 AST 15 U/L (15-37) 03/20/18 08:00 ALT 14 U/L (12-78) 03/20/18 08:00 Alkaline Phosphatase 69 U/L (45-117) 03/20/18 08:00 Total Protein 7.1 g/dl (6.4-8.2) 03/20/18 08:00 Albumin 3.5 g/dl (3.4-5.0) 03/20/18 08:00 Urine Color Ltyellow 03/22/18 07:00 Urine Appearance Cloudy 03/22/18 07:00 Urine pH 6.0 (5.0-8.0) D 03/22/18 07:00 Ur Specific [place] 1.014 (1.001-1.035) 03/22/18 07:00 Urine Protein Negative (NEGATIVE) 03/22/18 07:00 Urine Glucose (UA) Negative (NEGATIVE) 03/22/18 07:00 Urine Ketones Negative (NEGATIVE) 03/22/18 07:00 Urine Blood Negative (NEGATIVE) 03/22/18 07:00 Urine Nitrite Negative (NEGATIVE) 03/22/18 07:00 Urine Bilirubin Negative (<2.0 mg/dL) 03/22/18 07:00 Urine Urobilinogen Negative mg/dL (0.2-1.0) 03/22/18 07:00 Ur Leukocyte Esterase 2+ (NEGATIVE) H 03/22/18 07:00 Urine WBC (Auto) 21 /hpf (3-5) 03/22/18 07:00 Urine RBC (Auto) None /hpf (0-3) 03/22/18 07:00 Ur Epithelial Cells Many /HPF (FEW) 03/22/18 07:00 Calcium Oxalate Crystal Moderate /hpf (NONE SEEN) 03/22/18 07:00 RPR Titer Nonreactive (NONREACTIVE) 03/20/18 08:00 HIV 1&2 Antibody Screen Negative 03/20/18 08:00 HIV P24 Antigen Negative 03/20/18 08:00 lab noted - Treatment Hospital Course: Detox Protocol Followed, Detoxed Safely, Responded well, Discharged Condition Good, Rehab Referral Accepted Patient has Accepted a Rehab Referral to: [facility] - Medication Discharge Medications: Ambulatory Orders NK [No Known Home Medication] 03/19/18 - Diagnosis (1) Nicotine dependence Current Visit: Yes Status: Acute Qualifiers: Nicotine product type: cigarettes Substance use status: in withdrawal Qualified Code(s): F17.213 - Nicotine dependence, cigarettes, with withdrawal (2) Opioid dependence on agonist therapy Current Visit: Yes Status: Chronic (3) Hepatitis C Current Visit: Yes Status: Resolved Qualifiers: Viral hepatitis chronicity: unspecified Hepatic coma status: without hepatic coma Qualified Code(s): B19.20 - Unspecified viral hepatitis C without hepatic coma - AMA Did Patient Leave Against Medical Advice: No
== END 2018-03-23 09:03 | disposition home or self-care (01) | DRG 773 ==
LOC: YASAS 12:11 → Y6N 15:51
PROVIDERS: ADMIT Surgery; ATTEND Surgery
PROC: HZ2ZZZZ Detoxification Services for Substance Abuse Treatment (ICD-10-PCS; principal; 2018-03-19)
DX: F10.230 Alcohol dependence with withdrawal, uncomplicated (principal); F14.20 Cocaine dependence, uncomplicated; F11.20 Opioid dependence, uncomplicated; F12.20 Cannabis dependence, uncomplicated; F17.213 Nicotine dependence, cigarettes, with withdrawal; F19.24 Other psychoactive substance dependence with psychoactive substance-induced mood disorder; F32.9 Major depressive disorder, single episode, unspecified; G47.00 Insomnia, unspecified; B18.2 Chronic viral hepatitis C
CPT/HCPCS: 36415; 80053; 81003; 81015; 85027; 86593; 87389; 93005; 93010

== ENCOUNTER 2018-06-13 11:06 | Inpatient (IN) | payer OTHER ==
[2018-06-13 11:43] VITALS: BMI 26.1
--- NOTE | 2018-06-13 13:08 | HP ---
CIWA Score - CIWA Score Nausea/Vomitin Muscle Tremors: 3 Anxiety: 3 Agitation: 4-Moderately Restless Paroxysmal Sweats: 3 Orientation: 0-Oriented Tacttile Disturbances: 0-None Auditory Disturbances: 0-None Visual Disturbances: 0-None Headache: 0-None Present CIWA-Ar Total Score: 16 Admission ROS S - HPI Chief Complaint: "I am here to try to get sober again. 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 Pt states she drinks Vodka and shoots cocaine. Pt was last here in February, also had detox at [facility] after the february discharge from here. Endorses a 5yr sober period from 2008 - 2013 due to being in a 2 yr program, attending meetings, having a good support network. Reports relapse due to moving in with a boyfriend and hanging out with the wrong crowd. Pt is on a methadone program at [facility] where she gets 65mg of methadone daily. Last medicated today with her take home bottle. Pt understands there will be verification before she can be medicated from tomorrow. Hx of Hep C. Denies past nor current SI/HI. Denies psych hx but requests psychiatrist consult. Exam Limitations: No Limitations - Ebola screening Have you traveled outside of the country in the last 21 days: No Have you had contact with anyone from an Ebola affected area: No Have you been sick,other than usual withdrawal symptoms: No - Review of Systems Constitutional: Loss of Appetite, Night Sweats, Changes in sleep, Unintentional Wgt. Loss EENT: reports: No Symptoms Reported Respiratory: reports: No Symptoms reported Cardiac: reports: No Symptoms Reported GI: reports: Nausea, Poor Appetite, Vomiting : reports: No Symptoms Reported Musculoskeletal: reports: No Symptoms Reported Integumentary: reports: Bruising, Pruritus Neuro: reports: No Symptoms reported Endocrine: reports: No Symptoms Reported Hematology: reports: Easy Bruising Psychiatric: reports: Orientated x3, Agitated Other Systems: Reviewed and Negative Patient History - Patient Medical History Hx Anemia: No Hx Asthma: No Hx Chronic Obstructive Pulmonary Disease (COPD): No Hx Cancer: No Hx Cardiac Disorders: No Hx Congestive Heart Failure: No Hx Hypertension: No Hx Hypercholesterolemia: No Hx Pacemaker: No HX Cerebrovascular Accident: No Hx Seizures: No Hx Dementia: No Hx Diabetes: No Hx Gastrointestinal Disorders: No Hx Liver Disease: No (Hep C) Hx Genitourinary Disorders: No Hx Sexually Transmitted Disorders: No Hx Renal Disease (ESRD): No Hx Thyroid Disease: No Hx Human Immunodeficiency Virus (HIV): No (NEGATIVE HX last 07/13/17) Hx Hepatitis C: Yes (NOT YET TREATMENT) Hx Depression: Yes (NEVER SEEN A [facility] MD/ NOT EVALUATED; WANTS EVAL HERE ON THIS ADMISSION.) Hx Suicide Attempt: No (DENIES S/I) Hx Bipolar Disorder: No Hx Schizophrenia: No - Patient Surgical History Past Surgical History: Yes Hx Neurologic Surgery: No Hx Cataract Extraction: No Hx Cardiac Surgery: No Hx Lung Surgery: No Hx Breast Surgery: No Hx Breast Biopsy: No Hx Abdominal Surgery: No Hx Appendectomy: No Hx Cholecystectomy: No Hx Genitourinary Surgery: No Hx Section: No Hx Orthopedic Surgery: Yes (fx, right wrist in 2013) Hx Hysterectomy: No Anesthesia Reaction: No - PPD History Date: 12/10/17 Results: 0 mm - Reproductive History Patient is a Female of Child Bearing Age (11 -55 yrs old): Yes Last Menstrual Period: 02/23/18 Patient : No - Smoking Cessation Smoking history: Current every day smoker Have you smoked in the past 12 months: Yes Aproximately how many cigarettes per day: 5 Cigars Per Day: 0 Hx Chewing Tobacco Use: No Initiated information on smoking cessation: Yes 'Breaking Loose' booklet given: 06/13/18 - Substance & Tx. History Hx Alcohol Use: Yes Hx Substance Use: Yes Substance Use Type: Alcohol, Cocaine Hx Substance Use Treatment: Yes - Substances Abused Alcohol Route: Oral Frequency: Daily Amount used: 1.5 -2 pints of vodka Age of first use: 15 Date of Last Use: 06/12/18 Cocaine Route: Injection Frequency: Daily Amount used: $80-$100 Age of first use: 26 Date of Last Use: 06/12/18 Marijuana/Hashish Route: Smoking Frequency: 1-2 times per week Amount used: 3 blunts Age of first use: 15 Date of Last Use: 06/12/18 Family Disease History - Family Disease History Family Disease History: Other: Father (HTN), Mother (no contact) Admission Physical Exam [facility] - Vital Signs Vital Signs: Vital Signs - 24 hr 06/13/18 11:35 Temperature 97.6 F Pulse Rate 57 L Respiratory 18 Rate Blood Pressure 120/82 - Physical General Appearance: Yes: Mild Distress, Anxious HEENTM: Yes: Within Normal Limits, Nasal Congestion, Other (scars on face - appears like acne scars.Pt states she picks her face when high. R lower molar cavity) Respiratory: Yes: Normal Breath Sounds, No Respiratory Distress, No Accessory Muscle Use Neck: Yes: No masses,lesions,Nodules, Other (healed trck mary ann to L aspect) Breast: Yes: Breast Exam Deferred Cardiology: Yes: Bradycardia Genitourinary: Yes: Within Normal Limits Back: Yes: Normal Inspection Musculoskeletal: Yes: full range of Motion, Gait Steady Extremities: Yes: Normal Capillary Refill, Normal Inspection, Other (track garcia to b/l lower arms) Neurological: Yes: Fully Oriented, Alert, Motor Strength 5/5 Integumentary: Yes: Track Garcia (not infected), Other (Generalized scars) - Diagnostic (1) Alcohol dependence with uncomplicated withdrawal Current Visit: Yes Status: Acute (2) Cocaine dependence, uncomplicated Current Visit: No Status: Acute (3) Drug-induced mood disorder Current Visit: Yes Status: Chronic (4) History of dental problems Current Visit: No Status: Chronic (5) Marihuana dependence Current Visit: Yes Status: Acute (6) Nicotine dependence Current Visit: Yes Status: Chronic Qualifiers: Nicotine product type: cigarettes Substance use status: in withdrawal Qualified Code(s): F17.213 - Nicotine dependence, cigarettes, with withdrawal (7) Opioid dependence on agonist therapy Current Visit: Yes Status: Chronic (8) Drug-induced mood disorder Current Visit: Yes Status: Suspected (9) Hepatitis C Current Visit: Yes Status: Chronic Qualifiers: Viral hepatitis chronicity: unspecified Hepatic coma status: without hepatic coma Qualified Code(s): B19.20 - Unspecified viral hepatitis C without hepatic coma Cleared for Admission [facility] - Detox or Rehab [facility] Level of Care: Medically Managed Detox Regimen/Protocol: Librium [facility] Breath Alcohol Content Breath Alcohol Content: 0 Urine Pregancy Test - Result Urine Test Results: Negative- NO Line Present Urine Drug Screen - Results Drug Screen Negative: No Urine Drug Screen Results: THC-Marijuana, MANI-Cocaine, OPI-Opiates, MTD- Methadone
[2018-06-13] MEDS ORDERED: MAGNESIUM CITRATE 300 ML BOTTLE PO PRN (13:30)
[2018-06-13] MEDS ORDERED: MAG HYDROX/AL HYDROX/SIMETH 30 ML UNIT-DOSE CUP PO PRN (13:30)
[2018-06-13] MEDS ORDERED: NICOTINE POLACRILEX 2 MG GUM BC PRN (13:30)
[2018-06-13] MEDS ORDERED: ACETAMINOPHEN 325 MG TABLET (FP) PO PRN (13:30)
[2018-06-13] MEDS ORDERED: P-EPHED 60MG/TRIPROLIDI 2.5MG TABLET PO PRN (13:30)
[2018-06-13] MEDS ORDERED: LOPERAMIDE HCL 2 MG CAPSULE PO PRN (13:30)
[2018-06-13] MEDS ORDERED: IBUPROFEN 400 MG TABLET (FP) PO PRN (13:30)
[2018-06-13] MEDS ORDERED: guaiFENesin/D-METHORPHAN HB 10 ML UNIT-DOSE CUPS PO PRN (13:30)
[2018-06-13] MEDS ORDERED: MAGNESIUM HYDROX 2400MG/30ML ORAL SUSPENSION 30 ML CUP PO PRN (13:30)
[2018-06-13] MEDS ORDERED: MENTHOL/PHENOL 1 EACH UD MM PRN (13:30)
[2018-06-13] MEDS: chlordiazePOXIDE HCL 25 MG CAPSULE PO PRN (14:49)
[2018-06-13] MEDS: chlordiazePOXIDE HCL 25 MG CAPSULE PO SCH ×2 (17:20→22:29)
[2018-06-13 17:51] LABS: URINE APPEARANCE CLOUDY; URINE BILIRUBIN NEGATIVE (<2.0 mg/dL); URINE COLOR YELLOW; URINE GLUCOSE (UA) NEGATIVE (NEGATIVE); URINE KETONE NEGATIVE (NEGATIVE); URINE LEUK ESTERASE 1+ (NEGATIVE); URINE NITRITE NEGATIVE (NEGATIVE); URINE PROTEIN NEGATIVE (NEGATIVE); URINE UROBILINOGEN NEGATIVE mg/dL (0.2-1.0)
[2018-06-13 18:08] LABS: EPI CELLS MANY /HPF (FEW); URINE HYALINE CAST 2 /lpf; URINE MUCUS RARE
[2018-06-13] MEDS: THIAMINE HCL 100 MG TABLET (FP) PO SCH (22:28)
[2018-06-13] MEDS: MELATONIN 5 MG TABLETS PO PRN (22:30)
[2018-06-14] MEDS: chlordiazePOXIDE HCL 25 MG CAPSULE PO SCH ×4 (05:46→22:03)
[2018-06-14] MEDS ORDERED: METHADONE HCL 10 MG TABLET PO SCH (07:45)
--- NOTE | 2018-06-14 08:49 | CONSULT ---
[facility] Psychiatric Consult - Data Date of interview: 06/14/18 Admission source: [facility] Identifying data: 32 y/o female with a long hx of alcohol and cocaine addiction presents for detox. Pt states she drinks Vodka and shoots cocaine. Pt was last here in February, also had detox at [facility] after the february discharge from here. Endorses a 5yr sober period from 2008 - 2013 due to being in a 2 yr program, attending meetings, having a good support network. Reports relapse due to moving in with a boyfriend and hanging out with the wrong crowd. Pt is on a methadone program at [facility] where she gets 65mg of methadone daily. Last medicated today with her take home bottle. Pt understands. there will be verification before she can be medicated from tomorrow. Substance Abuse History: Smoking history: Current every day smoker. Have you smoked in the past 12 months: Yes. Aproximately how many cigarettes per day: 5. Cigars Per Day: 0. Hx Chewing Tobacco Use: No. Initiated information on smoking cessation: Yes. 'Breaking Loose' booklet given: 06/13/18. - Substance & Tx. History. Hx Alcohol Use: Yes. Hx Substance Use: Yes. Substance Use Type : Alcohol, Cocaine. Hx Substance Use Treatment: Yes. - Substances Abused. Alcohol. Route: Oral. Frequency: Daily. Amount used: 1.5 -2 pints of vodka. Age of first use: 15. Date of Last Use: 06/12/18. Cocaine. Route: Injection. Frequency: Daily. Amount used: $80-$100. Age of first use: 26. Date of Last Use: 06/12/18. Marijuana/Hashish. Route: Smoking. Frequency: 1-2 times per week. Amount used: 3 blunts. Age of first use: 15. Date of Last Use: 06/12/18 Medical History: HepC+, Weight loss history Psychiatric History: Patient reports history of depression and anxiety, reports no medications taking prior to admission. Patient denies psychiatric hospitalization history, suicidal and homicidal history as well. Physical/Sexual Abuse/Trauma History: Denies Additional Comment: Observation. Detox Unit Care Protocol Mental Status Exam - Mental Status Exam Additional Comments: Observation. Detox Unit Care Protocol Psychiatric Findings - Problem List ([place] 1, 2,3) (1) Alcohol dependence with uncomplicated withdrawal Current Visit: Yes Status: Acute (2) Marihuana dependence Current Visit: Yes Status: Acute (3) Drug-induced mood disorder Current Visit: Yes Status: Chronic (4) Hepatitis C Current Visit: Yes Status: Chronic Qualifiers: Viral hepatitis chronicity: unspecified Hepatic coma status: without hepatic coma Qualified Code(s): B19.20 - Unspecified viral hepatitis C without hepatic coma (5) Nicotine dependence Current Visit: Yes Status: Chronic Qualifiers: Nicotine product type: cigarettes Substance use status: in withdrawal Qualified Code(s): F17.213 - Nicotine dependence, cigarettes, with withdrawal (6) Opioid dependence on agonist therapy Current Visit: Yes Status: Chronic (7) Drug-induced mood disorder Current Visit: Yes Status: Suspected (8) Cocaine dependence, uncomplicated Current Visit: No Status: Acute (9) Weight loss Current Visit: No Status: Acute (10) Methadone maintenance therapy patient Current Visit: No Status: Chronic - Initial Treatment Plan Initial Treatment Plan: Observation. Detox Unit Care Protocol
[2018-06-14] MEDS ORDERED: METHADONE HCL 5 MG TABLET ONE (09:29)
[2018-06-14] MEDS ORDERED: METHADONE HCL 40 MG DISPERSABLE TABLET ONE (09:30)
[2018-06-14] MEDS ORDERED: METHADONE HCL 10 MG TABLET ONE (09:30)
[2018-06-14] MEDS: METHADONE 40 MG, METHADONE 20 MG, METHADONE 5 MG PO SCH (09:52)
[2018-06-14] MEDS ORDERED: CLINDAMYCIN PHOSPHATE 1% TOPICAL SOLUTION 30 ML BOTTLE TP SCH (10:00)
[2018-06-14] MEDS: PRENATAL VITAMINS W/ FOLIC ACID TABLET (FP) PO SCH (10:11)
[2018-06-14] MEDS: CLINDAMYCIN PHOSPHATE 1% TOPICAL GEL 30 GM TUBE TP SCH ×2 (11:00→22:02)
[2018-06-14 11:10] LABS: HEMATOCRIT 36.5 % (32.4-45.2); HEMOGLOBIN 11.6 GM/dL (10.7-15.3); MCH 27.2 pg (25.7-33.7); MCHC 31.7 g/dl (32.0-36.0); MEAN CELL VOLUME 85.8 fl (80-96); MEAN PLT VOLUME 7.6 fl (7.5-11.1); PLATELET COUNT 275 K/MM3 (134-434); RBC 4.25 M/mm3 (3.60-5.2); RDW 15.1 % (11.6-15.6); WHITE BLOOD COUNT 4.6 K/mm3 (4.0-10.0)
--- NOTE | 2018-06-14 11:36 | PN ---
S CIWA - CIWA Score Nausea/Vomitin-No Nausea/No Vomiting Muscle Tremors: 4-Moderate,w/Arms Extend Anxiety: 3 Agitation: 3 Paroxysmal Sweats: 3 Orientation: 0-Oriented Tacttile Disturbances: 0-None Auditory Disturbances: 0-None Visual Disturbances: 0-None Headache: 0-None Present CIWA-Ar Total Score: 13 BHS Progress Note (SOAP) Subjective: sweats shakes interrupted sleep irritable I need antibiotic ointment for my face I have a lot of vaginal discharge with odor Objective: 06/14/18 11:34 Vital Signs Temperature 98.4 F 06/14/18 09:43 Pulse Rate 60 06/14/18 09:43 Respiratory Rate 18 06/14/18 09:43 Blood Pressure 100/55 L 06/14/18 09:43 O2 Sat by Pulse Oximetry (%) Laboratory Tests 06/13/18 06/14/18 14:39 07:20 WBC 4.6 RBC 4.25 Hgb 11.6 Hct 36.5 MCV 85.8 MCH 27.2 MCHC 31.7 L RDW 15.1 D Plt Count 275 MPV 7.6 Urine Color Yellow Urine Appearance Cloudy Urine pH 7.0 Ur Specific [place] 1.017 Urine Protein Negative Urine Glucose (UA) Negative Urine Ketones Negative Urine Blood Negative Urine Nitrite Negative Urine Bilirubin Negative Urine Urobilinogen Negative Ur Leukocyte Esterase 1+ H Urine WBC (Auto) 14 Urine RBC (Auto) 1 Ur Epithelial Cells Many Hyaline Casts 2 Urine Mucus Rare rest of labs pending repeat u/a aaox3 ambulating no acute distress Assessment: 06/14/18 11:34 withdrawal sx Plan: continue detox increase fluids flagyl 500mg tid x 7 days vaginal cream oint q hs clindamyacin topical get for facial acne.
[2018-06-14] MEDS ORDERED: FLU VACCINE QUAD 60 MCG/0.5 ML (MDV 18-19) IM ONE (12:00)
[2018-06-14] MEDS ORDERED: PNEUMOCOCCAL 23 VACCINE 0.5 ML VIAL IM ONE (12:00)
[2018-06-14] MEDS ORDERED: PNEUMOC 13-VAL CONJ-DIP CRM/PF 0.5 ML DISP.SYRIN IM ONE (12:00)
[2018-06-14] MEDS: metroNIDAZOLE 250 MG TABLET PO SCH ×2 (13:13→22:03)
[2018-06-14 15:02] LABS: ALBUMIN 3.2 g/dl (3.4-5.0); ALK PHOS 60 U/L (45-117); ANION GAP 4 MMOL/L (8-16); BILIRUBIN,TOTAL 0.3 mg/dL (0.2-1); BLOOD UREA NITROGEN 7 mg/dL (7-18); CALCIUM 8.3 mg/dL (8.5-10.1); CHLORIDE 106 mmol/L (98-107); CO2 28 mmol/L (21-32); CREATININE 0.8 mg/dL (0.55-1.3); GLUCOSE,RANDOM 89 mg/dL (74-106); POTASSIUM 4.1 mmol/L (3.5-5.1); SGOT/AST 24 U/L (15-37); SGPT/ALT 38 U/L (13-61); SODIUM 138 mmol/L (136-145); TOT PROT 6.3 g/dl (6.4-8.2)
--- NOTE | 2018-06-14 21:33 | EKG ---
Test Reason : Blood Pressure : / mmHG Vent. Rate : 052 BPM Atrial Rate : 052 BPM P-R Int : 164 ms QRS Dur : 098 ms QT Int : 424 ms P-R-T Axes : 046 061 037 degrees QTc Int : 394 ms SINUS BRADYCARDIA POSSIBLE LEFT ATRIAL ENLARGEMENT BORDERLINE ECG WHEN COMPARED WITH ECG OF 19-MAR-2018 16:46, NO SIGNIFICANT CHANGE WAS FOUND Confirmed by ZAHIRA BAUMANN MD ([id number]) on 06/14/2018 9:32:52 PM Referred By: Ruth Saunders Confirmed By:ZAHIRA BAUMANN MD
[2018-06-14] MEDS ORDERED: MICONAZOLE NITRATE 200 MG VAGINAL SUPPOSITORY PV SCH (22:00)
[2018-06-14] MEDS: THIAMINE HCL 100 MG TABLET (FP) PO SCH (22:03)
[2018-06-14] MEDS: MELATONIN 5 MG TABLETS PO PRN (22:03)
[2018-06-15] MEDS ORDERED: METHADONE HCL 10 MG TABLET ONE (05:40)
[2018-06-15] MEDS ORDERED: METHADONE HCL 40 MG DISPERSABLE TABLET ONE (05:40)
[2018-06-15] MEDS ORDERED: METHADONE HCL 5 MG TABLET ONE (05:40)
[2018-06-15] MEDS: chlordiazePOXIDE HCL 25 MG CAPSULE PO SCH ×2 (06:05→10:51)
[2018-06-15] MEDS: metroNIDAZOLE 250 MG TABLET PO SCH ×2 (06:05→13:03)
[2018-06-15] MEDS: METHADONE 40 MG, METHADONE 20 MG, METHADONE 5 MG PO SCH (06:05)
[2018-06-15] MEDS: CLINDAMYCIN PHOSPHATE 1% TOPICAL GEL 30 GM TUBE TP SCH (10:51)
[2018-06-15] MEDS: PRENATAL VITAMINS W/ FOLIC ACID TABLET (FP) PO SCH (10:51)
--- NOTE | 2018-06-15 12:30 | PN ---
[facility] CIWA - CIWA Score Nausea/Vomitin-No Nausea/No Vomiting Muscle Tremors: 3 Anxiety: 3 Agitation: 3 Paroxysmal Sweats: 2 Orientation: 0-Oriented Tacttile Disturbances: 0-None Auditory Disturbances: 0-None Visual Disturbances: 0-None Headache: 0-None Present CIWA-Ar Total Score: 11 S Progress Note (SOAP) Subjective: agitation sweats feeling better with vaginal discharge interrupted sleep Objective: 06/15/18 12:29 Vital Signs Temperature 97.9 F 06/15/18 09:28 Pulse Rate 66 06/15/18 09:28 Respiratory Rate 18 06/15/18 09:28 Blood Pressure 103/60 06/15/18 09:28 O2 Sat by Pulse Oximetry (%) Laboratory Tests 06/13/18 06/14/18 06/14/18 14:39 07:20 07:20 WBC 4.6 RBC 4.25 Hgb 11.6 Hct 36.5 MCV 85.8 MCH 27.2 MCHC 31.7 L RDW 15.1 D Plt Count 275 MPV 7.6 Sodium 138 Potassium 4.1 Chloride 106 Carbon Dioxide 28 Anion Gap 4 L BUN 7 Creatinine 0.8 Creat Clearance w eGFR > 60 Random Glucose 89 Calcium 8.3 L Total Bilirubin 0.3 AST 24 ALT 38 Alkaline Phosphatase 60 Total Protein 6.3 L Albumin 3.2 L Urine Color Yellow Urine Appearance Cloudy Urine pH 7.0 Ur Specific [place] 1.017 Urine Protein Negative Urine Glucose (UA) Negative Urine Ketones Negative Urine Blood Negative Urine Nitrite Negative Urine Bilirubin Negative Urine Urobilinogen Negative Ur Leukocyte Esterase 1+ H Urine WBC (Auto) 14 Urine RBC (Auto) 1 Ur Epithelial Cells Many Hyaline Casts 2 Urine Mucus Rare RPR Titer HIV 1&2 Antibody Screen HIV P24 Antigen 06/14/18 06/14/18 07:20 10:40 WBC RBC Hgb Hct MCV MCH MCHC RDW Plt Count MPV Sodium Potassium Chloride Carbon Dioxide Anion Gap BUN Creatinine Creat Clearance w eGFR Random Glucose Calcium Total Bilirubin AST ALT Alkaline Phosphatase Total Protein Albumin Urine Color Urine Appearance Urine pH Ur Specific [place] Urine Protein Urine Glucose (UA) Urine Ketones Urine Blood Urine Nitrite Urine Bilirubin Urine Urobilinogen Ur Leukocyte Esterase Urine WBC (Auto) Urine RBC (Auto) Ur Epithelial Cells Hyaline Casts Urine Mucus RPR Titer Nonreactive HIV 1&2 Antibody Screen Negative HIV P24 Antigen Negative aaox3 ambulating no acute distress Assessment: 06/15/18 12:30 withdrawal sx Plan: continue detox increase fluids
[2018-06-15 13:00] VITALS: BP 108/62; PULSE 56; TEMP 97.2
[2018-06-15] MEDS: chlordiazePOXIDE HCL 25 MG CAPSULE PO PRN (13:03)
--- NOTE | 2018-06-15 15:23 | PN ---
S Progress Note Note: pt wants to leave because her sister is picking her up and taking her to [place] to see her dad who is in hospice care. Pt is aaox3 and experiencing no withdrawal sx. pt signed AMA.
--- NOTE | 2018-06-15 15:24 | DS ---
[facility] Detox Discharge Summary Admission Date: 06/13/18 - History Present History: Alcohol Dependence, MMTP - Physical Exam Results Vital Signs: Vital Signs Temperature 97.2 F L 06/15/18 13:00 Pulse Rate 56 L 06/15/18 13:00 Respiratory Rate 18 06/15/18 13:00 Blood Pressure 108/62 06/15/18 13:00 O2 Sat by Pulse Oximetry (%) - Treatment Hospital Course: Responded well, Discharged Condition Good - Medication Discharge Medications: Ambulatory Orders Methadone [Dolophine -] 65 mg PO DAILY 06/13/18 metroNIDAZOLE [Flagyl -] 500 mg PO TID #21 tablet 06/15/18 - AMA Did Patient Leave Against Medical Advice: Yes (going home pt is being p/u by sister)
[2018-06-15] MEDS ORDERED: chlordiazePOXIDE 5 MG CAPSULE PO SCH (17:00)
[2018-06-16] MEDS ORDERED: chlordiazePOXIDE HCL 10 MG CAPSULE PO SCH (17:00)
== END 2018-06-15 16:53 | disposition left against medical advice (07) | DRG 770 ==
LOC: YASAS 11:06 → Y6N 13:39
PROC: HZ2ZZZZ Detoxification Services for Substance Abuse Treatment (ICD-10-PCS; principal; 2018-06-13)
DX: F10.230 Alcohol dependence with withdrawal, uncomplicated (principal); F11.20 Opioid dependence, uncomplicated; F14.20 Cocaine dependence, uncomplicated; F12.20 Cannabis dependence, uncomplicated; F17.213 Nicotine dependence, cigarettes, with withdrawal; F19.24 Other psychoactive substance dependence with psychoactive substance-induced mood disorder; R00.1 Bradycardia, unspecified; B19.20 Unspecified viral hepatitis C without hepatic coma; Z87.898 Personal history of other specified conditions; Z59.0 Homelessness
CPT/HCPCS: 36415; 80053; 81003; 81015; 85027; 86593; 87389; 90688; 90732; 93005; 93010; G0008; G0009

== ENCOUNTER 2018-07-29 14:31 | Inpatient (IN) | payer OTHER ==
[2018-07-29 14:41] VITALS: BMI 26.7
--- NOTE | 2018-07-29 18:07 | HP ---
CIWA Score Nausea/Vomitin-Mild Nausea/No Vomiting Muscle Tremors: 2 Anxiety: 2 Agitation: 1-Slight > Activity Paroxysmal Sweats: 2 Orientation: 1-Uncertain about Date Tacttile Disturbances: 1-Very Mild Itch/Numbness Auditory Disturbances: 1-Very Mild Visual Disturbances: 1-Very Mild Sensitivity Headache: 1-Very Mild CIWA-Ar Total Score: 13 - Admission Criteria [facility] Guidelines: Admission for Medically Managed Detox: Requires at least one of the followin. CIWA greater than 12 2. Seizures within the past 24 hours 3. Delirium tremens within the past 24 hours 4. Hallucinations within the past 24 hours 5. Acute intervention needed for co occurring medical disorder 6. Acute intervention needed for co occurring psychiatric disorder 7. Severe withdrawal that cannot be handled at a lower level of care (continued vomiting, continued diarrhea, abnormal vital signs) requiring intravenous medication and/or fluids 8. Admission ROS [facility] Chief Complaint: WITHDRAWAL SYMPTOMS Allergies/Adverse Reactions: Allergies Allergy/AdvReac Type Severity Reaction Status Date / Time No Known Allergies Allergy Verified 06/13/18 12:11 History of Present Illness: 32 Y.O. FEMALE WITH A HISTORY OF ALCOHOL DEPENDENCE IS HERE SEEKING DETOX SERVICES. SHE HAS HAD MULTIPLE ADMISSIONS HERE FOR DETOX WITH THE LAST BEING . SHE DOES NOT HAVE A SIGNIFICANT PERIOD OF SOBRIETY. PT. IS CURRENTLY ENROLLED IN [facility] AND REPORTS SHE WAS LAST MEDICATED TODAY WITH 65MG OF METHADONE. Exam Limitations: No Limitations - Ebola screening Have you traveled outside of the country in the last 21 days: No Have you had contact with anyone from an Ebola affected area: No Have you been sick,other than usual withdrawal symptoms: No - Review of Systems Constitutional: Chills, Loss of Appetite, Unintentional Wgt. Loss EENT: reports: No Symptoms Reported Respiratory: reports: No Symptoms reported Cardiac: reports: No Symptoms Reported GI: reports: No Symptoms Reported : reports: No Symptoms Reported Musculoskeletal: reports: No Symptoms Reported Integumentary: reports: Bruising, Erythema Neuro: reports: Headache, Tremors Endocrine: reports: No Symptoms Reported Hematology: reports: No Symptoms Reported Psychiatric: reports: Depressed Other Systems: Reviewed and Negative Patient History - Patient Medical History Hx Anemia: No Hx Asthma: No Hx Chronic Obstructive Pulmonary Disease (COPD): No Hx Cancer: No Hx Cardiac Disorders: No Hx Congestive Heart Failure: No Hx Hypertension: No Hx Hypercholesterolemia: No Hx Pacemaker: No HX Cerebrovascular Accident: No Hx Seizures: No Hx Dementia: No Hx Diabetes: No Hx Gastrointestinal Disorders: No Hx Liver Disease: No (Hep C (untreated)) Hx Genitourinary Disorders: No Hx Sexually Transmitted Disorders: No Hx Renal Disease (ESRD): No Hx Thyroid Disease: No Hx Human Immunodeficiency Virus (HIV): No (NEGATIVE HX last 07/13/18) Hx Hepatitis C: Yes (NOT YET TREATMENT) Hx Depression: Yes (NEVER SEEN A [facility] MD/ NOT EVALUATED; WANTS EVAL HERE ON THIS ADMISSION.) Hx Suicide Attempt: No (DENIES S/I) Hx Bipolar Disorder: No Hx Schizophrenia: No - Patient Surgical History Past Surgical History: Yes Hx Neurologic Surgery: No Hx Cataract Extraction: No Hx Cardiac Surgery: No Hx Lung Surgery: No Hx Breast Surgery: No Hx Breast Biopsy: No Hx Abdominal Surgery: No Hx Appendectomy: No Hx Cholecystectomy: No Hx Genitourinary Surgery: No Hx Section: No Hx Orthopedic Surgery: Yes (fx, right wrist in 2013) Hx Hysterectomy: No Anesthesia Reaction: No - PPD History Previous Implant?: Yes Documented Results: Negative w/proof Implanted On Prior R Admission?: No Date: 12/10/17 Results: 0 mm PPD to be Administered?: Yes - Reproductive History Patient is a Female of Child Bearing Age (11 -55 yrs old): Yes Last Menstrual Period: 06/28/18 Patient : No - Smoking Cessation Smoking history: Current every day smoker Have you smoked in the past 12 months: Yes Aproximately how many cigarettes per day: 5 Cigars Per Day: 0 Hx Chewing Tobacco Use: No Initiated information on smoking cessation: Yes 'Breaking Loose' booklet given: 07/29/18 - Substance & Tx. History Hx Alcohol Use: Yes Hx Substance Use: Yes Substance Use Type: Alcohol, Cocaine, Marijuana Hx Substance Use Treatment: Yes (Detox: 06/15/18) - Substances Abused Alcohol Route: Oral Frequency: 3-6 times per week Amount used: 2 pints liquor Age of first use: 15 Date of Last Use: 07/28/18 Cocaine Route: Injection Frequency: Daily Amount used: $50 Age of first use: 26 Date of Last Use: 07/29/18 Marijuana/Hashish Route: Smoking Frequency: 1-2 times per week Amount used: $20 Age of first use: 15 Date of Last Use: 07/29/18 Family Disease History - Family Disease History Family Disease History: Other: Father (HTN), Mother (no contact) Admission Physical Exam [facility] - Vital Signs Vital Signs: Vital Signs - 24 hr 07/29/18 14:38 Temperature 97.0 F L Pulse Rate 69 Respiratory 18 Rate Blood Pressure 114/74 - Physical General Appearance: Yes: Disheveled, Irritable, Sweating, Anxious HEENTM: Yes: Hearing grossly Normal, Normal ENT Inspection, Normocephalic Respiratory: Yes: Chest Non-Tender, Lungs Clear, Normal Breath Sounds, No Respiratory Distress, No Accessory Muscle Use Neck: Yes: Within Normal Limits Breast: Yes: Breast Exam Deferred Cardiology: Yes: Regular Rhythm, Regular Rate Abdominal: Yes: Normal Bowel Sounds, Non Tender, Flat Genitourinary: Yes: Other (NO COMPLAINTS REPORTED) Back: Yes: Normal Inspection Musculoskeletal: Yes: full range of Motion, Pelvis Stable Extremities: Yes: Erythema (B/L ARMS) Neurological: Yes: Alert, Normal Mood/Affect Integumentary: Yes: Erythema, Track [place] Lymphatic: Yes: Within Normal Limits - Diagnostic (1) Alcohol dependence with uncomplicated withdrawal Current Visit: Yes Status: Chronic (2) Cocaine dependence, uncomplicated Current Visit: Yes Status: Chronic (3) Marihuana dependence Current Visit: Yes Status: Chronic (4) Hepatitis C Current Visit: Yes Status: Chronic Qualifiers: Viral hepatitis chronicity: unspecified Hepatic coma status: without hepatic coma Qualified Code(s): B19.20 - Unspecified viral hepatitis C without hepatic coma (5) Nicotine dependence Current Visit: Yes Status: Chronic Qualifiers: Nicotine product type: cigarettes Substance use status: in withdrawal Qualified Code(s): F17.213 - Nicotine dependence, cigarettes, with withdrawal (6) Opioid dependence on agonist therapy Current Visit: Yes Status: Chronic Cleared for Admission [facility] - Detox or Rehab [facility] Level of Care: Medically Managed Detox Regimen/Protocol: Valium [facility] Breath Alcohol Content Breath Alcohol Content: 0 Urine Pregancy Test - Result Urine Test Results: Negative- NO Line Present Urine Drug Screen - Results Drug Screen Negative: No Urine Drug Screen Results: THC-Marijuana, MANI-Cocaine, OPI-Opiates, MTD- Methadone
[2018-07-29] MEDS ORDERED: P-EPHED 60MG/TRIPROLIDI 2.5MG TABLET PO PRN (18:12)
[2018-07-29] MEDS ORDERED: guaiFENesin/D-METHORPHAN HB 10 ML UNIT-DOSE CUPS PO PRN (18:12)
[2018-07-29] MEDS ORDERED: ACETAMINOPHEN 325 MG TABLET (FP) PO PRN (18:12)
[2018-07-29] MEDS ORDERED: MAGNESIUM HYDROX 2400MG/30ML ORAL SUSPENSION 30 ML CUP PO PRN (18:12)
[2018-07-29] MEDS ORDERED: MAGNESIUM CITRATE 300 ML BOTTLE PO PRN (18:12)
[2018-07-29] MEDS ORDERED: MAG HYDROX/AL HYDROX/SIMETH 30 ML UNIT-DOSE CUP PO PRN (18:12)
[2018-07-29] MEDS ORDERED: MENTHOL/PHENOL 1 EACH UD MM PRN (18:12)
[2018-07-29] MEDS ORDERED: LOPERAMIDE HCL 2 MG CAPSULE PO PRN (18:12)
[2018-07-29] MEDS ORDERED: IBUPROFEN 400 MG TABLET (FP) PO PRN (18:12)
[2018-07-29] MEDS ORDERED: diazePAM 5 MG TABLET PO ONE (19:00)
[2018-07-29] MEDS: hydrOXYzine PAMOATE 50 MG CAPSULE (FP) PO PRN (22:31)
[2018-07-29] MEDS: MELATONIN 5 MG TABLETS PO PRN (22:31)
[2018-07-29] MEDS: diazePAM 5 MG TABLET PO SCH (22:31)
[2018-07-29] MEDS: THIAMINE HCL 100 MG TABLET (FP) PO SCH (22:31)
[2018-07-30] MEDS: diazePAM 5 MG TABLET PO SCH ×3 (05:37→22:28)
[2018-07-30] MEDS ORDERED: METHADONE HCL 10 MG TABLET PO ONE (09:20)
[2018-07-30] MEDS ORDERED: METHADONE 40 MG, METHADONE 20 MG, METHADONE 5 MG PO ONE (09:30)
[2018-07-30] MEDS ORDERED: METHADONE HCL 40 MG DISPERSABLE TABLET ONE (10:03)
[2018-07-30] MEDS ORDERED: METHADONE HCL 5 MG TABLET ONE (10:03)
[2018-07-30] MEDS ORDERED: METHADONE HCL 10 MG TABLET ONE (10:03)
[2018-07-30 10:10] LABS: HEMATOCRIT 35.8 % (32.4-45.2); HEMOGLOBIN 12.3 GM/dL (10.7-15.3); MCHC 34.3 g/dl (32.0-36.0); MEAN CELL VOLUME 84.4 fl (80-96); MEAN PLT VOLUME 7.9 fl (7.5-11.1); PLATELET COUNT 310 K/MM3 (134-434); RBC 4.23 M/mm3 (3.60-5.2); RDW 14.3 % (11.6-15.6); WHITE BLOOD COUNT 5.2 K/mm3 (4.0-10.0)
[2018-07-30] MEDS: PRENATAL VITAMINS W/ FOLIC ACID TABLET (FP) PO SCH (10:29)
[2018-07-30 11:05] LABS: ALBUMIN 3.2 g/dl (3.4-5.0); ALK PHOS 64 U/L (45-117); ANION GAP 7 MMOL/L (8-16); BILIRUBIN,TOTAL 0.2 mg/dL (0.2-1); BLOOD UREA NITROGEN 8 mg/dL (7-18); CALCIUM 8.5 mg/dL (8.5-10.1); CHLORIDE 103 mmol/L (98-107); CO2 28 mmol/L (21-32); CREATININE 0.7 mg/dL (0.55-1.3); GLUCOSE,RANDOM 89 mg/dL (74-106); POTASSIUM 4.5 mmol/L (3.5-5.1); SGOT/AST 14 U/L (15-37); SODIUM 137 mmol/L (136-145); TOT PROT 6.6 g/dl (6.4-8.2)
[2018-07-30 11:10] LABS: SGPT/ALT < 13 U/L (13-61)
[2018-07-30] MEDS: diazePAM 5 MG TABLET PO PRN ×2 (12:39→17:16)
--- NOTE | 2018-07-30 13:15 | PN ---
S CIWA - CIWA Score Nausea/Vomitin-No Nausea/No Vomiting Muscle Tremors: 4-Moderate,w/Arms Extend Anxiety: 3 Agitation: 3 Paroxysmal Sweats: 3 Orientation: 0-Oriented Tacttile Disturbances: 0-None Auditory Disturbances: 0-None Visual Disturbances: 0-None Headache: 0-None Present CIWA-Ar Total Score: 13 S Progress Note (SOAP) Subjective: tired sweats irritable body aches interrupted sleep Objective: 07/30/18 13:14 Vital Signs Temperature 98.1 F 07/30/18 11:46 Pulse Rate 58 L 07/30/18 11:46 Respiratory Rate 18 07/30/18 11:46 Blood Pressure 105/55 L 07/30/18 11:46 O2 Sat by Pulse Oximetry (%) Laboratory Tests 07/30/18 07/30/18 07:00 07:00 WBC 5.2 RBC 4.23 Hgb 12.3 Hct 35.8 MCV 84.4 MCH 29.0 MCHC 34.3 RDW 14.3 Plt Count 310 MPV 7.9 Sodium 137 Potassium 4.5 Chloride 103 Carbon Dioxide 28 Anion Gap 7 L BUN 8 Creatinine 0.7 Creat Clearance w eGFR > 60 Random Glucose 89 Calcium 8.5 Total Bilirubin 0.2 AST 14 L ALT < 13 L Alkaline Phosphatase 64 Total Protein 6.6 Albumin 3.2 L aaox3 ambulating no acute distress Assessment: 07/30/18 13:15 withdrawal sx Plan: continue detox increase fluids
--- NOTE | 2018-07-30 16:01 | PN ---
[facility] Progress Note Note: pt states that she was doing a self breast exam and discovered a lump to her right breast. I also examined her right breast, lump noted no discharge or pain noted during exam. pt advised to see her [employer] doctor after she completes her detox. Pt in agreement. pt was told if she sees or feels something out of the ordinary to please let nursing and medical staff know. pt in agreement.
[2018-07-30] MEDS: THIAMINE HCL 100 MG TABLET (FP) PO SCH (22:28)
[2018-07-30] MEDS: hydrOXYzine PAMOATE 50 MG CAPSULE (FP) PO PRN (22:28)
[2018-07-30] MEDS: MELATONIN 5 MG TABLETS PO PRN (22:29)
[2018-07-30] MEDS: MICONAZOLE NITRATE 2% VAGINAL CREAM 45 GM TUBE VG SCH (22:31)
[2018-07-31] MEDS ORDERED: METHADONE HCL 40 MG DISPERSABLE TABLET ONE (05:19)
[2018-07-31] MEDS ORDERED: METHADONE HCL 5 MG TABLET ONE (05:19)
[2018-07-31] MEDS ORDERED: METHADONE HCL 10 MG TABLET ONE (05:20)
[2018-07-31] MEDS: METHADONE 40 MG, METHADONE 20 MG, METHADONE 5 MG PO SCH (05:59)
[2018-07-31] MEDS ORDERED: METHADONE HCL 40 MG DISPERSABLE TABLET PO SCH (06:00)
[2018-07-31] MEDS: PRENATAL VITAMINS W/ FOLIC ACID TABLET (FP) PO SCH (10:42)
[2018-07-31] MEDS: diazePAM 5 MG TABLET PO SCH ×2 (10:43→22:29)
[2018-07-31] MEDS: diazePAM 5 MG TABLET PO PRN (14:16)
--- NOTE | 2018-07-31 14:33 | PN ---
[facility] CIWA - CIWA Score Nausea/Vomitin Muscle Tremors: 3 Anxiety: 3 Agitation: 2 Paroxysmal Sweats: 3 Orientation: 0-Oriented Tacttile Disturbances: 2-Mild Itch/Numbness/Burn Auditory Disturbances: 0-None Visual Disturbances: 0-None Headache: 0-None Present CIWA-Ar Total Score: 15 S Progress Note (SOAP) Subjective: Anxious about recently identified right breast lump, interrupted sleep Objective: 07/31/18 14:32 Vital Signs 07/31/18 07/31/18 07:32 14:05 Temperature 98.2 F 97.3 F L Pulse Rate 63 65 Respiratory 18 16 Rate Blood Pressure 94/63 107/54 L Laboratory Last Values WBC 5.2 K/mm3 (4.0-10.0) 07/30/18 07:00 RBC 4.23 M/mm3 (3.60-5.2) 07/30/18 07:00 Hgb 12.3 GM/dL (10.7-15.3) 07/30/18 07:00 Hct 35.8 % (32.4-45.2) 07/30/18 07:00 MCV 84.4 fl (80-96) 07/30/18 07:00 MCH 29.0 pg (25.7-33.7) 07/30/18 07:00 MCHC 34.3 g/dl (32.0-36.0) 07/30/18 07:00 RDW 14.3 % (11.6-15.6) 07/30/18 07:00 Plt Count 310 K/MM3 (134-434) 07/30/18 07:00 MPV 7.9 fl (7.5-11.1) 07/30/18 07:00 Sodium 137 mmol/L (136-145) 07/30/18 07:00 Potassium 4.5 mmol/L (3.5-5.1) 07/30/18 07:00 Chloride 103 mmol/L (98-107) 07/30/18 07:00 Carbon Dioxide 28 mmol/L (21-32) 07/30/18 07:00 Anion Gap 7 MMOL/L (8-16) L 07/30/18 07:00 BUN 8 mg/dL (7-18) 07/30/18 07:00 Creatinine 0.7 mg/dL (0.55-1.3) 07/30/18 07:00 Creat Clearance w eGFR > 60 (>60) 07/30/18 07:00 Random Glucose 89 mg/dL (74-106) 07/30/18 07:00 Calcium 8.5 mg/dL (8.5-10.1) 07/30/18 07:00 Total Bilirubin 0.2 mg/dL (0.2-1) 07/30/18 07:00 AST 14 U/L (15-37) L 07/30/18 07:00 ALT < 13 U/L (13-61) L 07/30/18 07:00 Alkaline Phosphatase 64 U/L (45-117) 07/30/18 07:00 Total Protein 6.6 g/dl (6.4-8.2) 07/30/18 07:00 Albumin 3.2 g/dl (3.4-5.0) L 07/30/18 07:00 RPR Titer Nonreactive (NONREACTIVE) 07/30/18 07:00 HIV 1&2 Antibody Screen Negative 07/30/18 07:00 HIV P24 Antigen Negative 07/30/18 07:00 Labs noted Assessment: 07/31/18 14:32 Withdrawal sx Right breast lump Plan: Continue detox Reinforced PCP follow up for further evaluation of lump
[2018-07-31] MEDS: THIAMINE HCL 100 MG TABLET (FP) PO SCH (22:28)
[2018-07-31] MEDS: hydrOXYzine PAMOATE 50 MG CAPSULE (FP) PO PRN (22:28)
[2018-07-31] MEDS: MELATONIN 5 MG TABLETS PO PRN (22:29)
[2018-07-31] MEDS: MICONAZOLE NITRATE 2% VAGINAL CREAM 45 GM TUBE VG SCH (22:55)
[2018-08-01] MEDS ORDERED: METHADONE HCL 10 MG TABLET ONE (03:29)
[2018-08-01] MEDS ORDERED: METHADONE HCL 5 MG TABLET ONE (03:29)
[2018-08-01] MEDS ORDERED: METHADONE HCL 40 MG DISPERSABLE TABLET ONE (03:29)
[2018-08-01] MEDS: METHADONE 40 MG, METHADONE 20 MG, METHADONE 5 MG PO SCH (06:00)
[2018-08-01] MEDS: PRENATAL VITAMINS W/ FOLIC ACID TABLET (FP) PO SCH (10:30)
[2018-08-01] MEDS: diazePAM 5 MG TABLET PO SCH ×2 (10:31→22:25)
[2018-08-01] MEDS: diazePAM 5 MG TABLET PO PRN ×2 (13:21→17:36)
--- NOTE | 2018-08-01 13:42 | PN ---
[facility] Progress Note (SOAP) Subjective: feeling better no tremor less sweat no gi distress sleep better at night social with peers in day room Objective: 08/01/18 13:41 Vital Signs Temperature 98.1 F 08/01/18 10:00 Pulse Rate 87 08/01/18 10:00 Respiratory Rate 16 08/01/18 10:00 Blood Pressure 112/66 08/01/18 10:00 O2 Sat by Pulse Oximetry (%) Vital Signs Laboratory Last Values WBC 5.2 K/mm3 (4.0-10.0) 07/30/18 07:00 RBC 4.23 M/mm3 (3.60-5.2) 07/30/18 07:00 Hgb 12.3 GM/dL (10.7-15.3) 07/30/18 07:00 Hct 35.8 % (32.4-45.2) 07/30/18 07:00 MCV 84.4 fl (80-96) 07/30/18 07:00 MCH 29.0 pg (25.7-33.7) 07/30/18 07:00 MCHC 34.3 g/dl (32.0-36.0) 07/30/18 07:00 RDW 14.3 % (11.6-15.6) 07/30/18 07:00 Plt Count 310 K/MM3 (134-434) 07/30/18 07:00 MPV 7.9 fl (7.5-11.1) 07/30/18 07:00 Sodium 137 mmol/L (136-145) 07/30/18 07:00 Potassium 4.5 mmol/L (3.5-5.1) 07/30/18 07:00 Chloride 103 mmol/L (98-107) 07/30/18 07:00 Carbon Dioxide 28 mmol/L (21-32) 07/30/18 07:00 Anion Gap 7 MMOL/L (8-16) L 07/30/18 07:00 BUN 8 mg/dL (7-18) 07/30/18 07:00 Creatinine 0.7 mg/dL (0.55-1.3) 07/30/18 07:00 Creat Clearance w eGFR > 60 (>60) 07/30/18 07:00 Random Glucose 89 mg/dL (74-106) 07/30/18 07:00 Calcium 8.5 mg/dL (8.5-10.1) 07/30/18 07:00 Total Bilirubin 0.2 mg/dL (0.2-1) 07/30/18 07:00 AST 14 U/L (15-37) L 07/30/18 07:00 ALT < 13 U/L (13-61) L 07/30/18 07:00 Alkaline Phosphatase 64 U/L (45-117) 07/30/18 07:00 Total Protein 6.6 g/dl (6.4-8.2) 07/30/18 07:00 Albumin 3.2 g/dl (3.4-5.0) L 07/30/18 07:00 RPR Titer Nonreactive (NONREACTIVE) 07/30/18 07:00 HIV 1&2 Antibody Screen Negative 07/30/18 07:00 HIV P24 Antigen Negative 07/30/18 07:00 lab noted Assessment: 08/01/18 13:42 mild withdrawal sx Plan: medically supervised detox
[2018-08-01] MEDS: hydrOXYzine PAMOATE 50 MG CAPSULE (FP) PO PRN ×2 (17:36→22:24)
[2018-08-01] MEDS: THIAMINE HCL 100 MG TABLET (FP) PO SCH (22:24)
[2018-08-01] MEDS: MELATONIN 5 MG TABLETS PO PRN (22:25)
[2018-08-01] MEDS: MICONAZOLE NITRATE 2% VAGINAL CREAM 45 GM TUBE VG SCH (22:39)
[2018-08-02] MEDS ORDERED: METHADONE HCL 5 MG TABLET ONE (05:04)
[2018-08-02] MEDS ORDERED: METHADONE HCL 40 MG DISPERSABLE TABLET ONE (05:05)
[2018-08-02] MEDS ORDERED: METHADONE HCL 10 MG TABLET ONE (05:05)
[2018-08-02] MEDS: METHADONE 40 MG, METHADONE 20 MG, METHADONE 5 MG PO SCH (05:46)
[2018-08-02 08:16] VITALS: BP 102/54; PULSE 70; TEMP 97.9
--- NOTE | 2018-08-02 08:19 | DS ---
[facility] Detox Discharge Summary Admission Date: 07/29/18 Discharge Date: 08/02/18 - History Present History: Alcohol Dependence, Cocaine Dependence, Sedative Dependence - Physical Exam Results Vital Signs: Vital Signs Temperature 97.9 F 08/02/18 08:15 Pulse Rate 70 08/02/18 08:15 Respiratory Rate 18 08/02/18 08:15 Blood Pressure 102/54 L 08/02/18 08:15 O2 Sat by Pulse Oximetry (%) - Treatment Hospital Course: Detox Protocol Followed, Detoxed Safely, Responded well, Discharged Condition Good, Rehab Referral Accepted - Medication Discharge Medications: Ambulatory Orders Methadone [Dolophine -] 65 mg PO DAILY 06/13/18 - Diagnosis (1) Alcohol dependence with uncomplicated withdrawal Current Visit: Yes Status: Chronic (2) Cocaine dependence, uncomplicated Current Visit: Yes Status: Chronic (3) Hepatitis C Current Visit: Yes Status: Chronic Qualifiers: Viral hepatitis chronicity: unspecified Hepatic coma status: without hepatic coma Qualified Code(s): B19.20 - Unspecified viral hepatitis C without hepatic coma (4) Marihuana dependence Current Visit: Yes Status: Chronic (5) Nicotine dependence Current Visit: Yes Status: Chronic Qualifiers: Nicotine product type: cigarettes Substance use status: uncomplicated Qualified Code(s): F17.210 - Nicotine dependence, cigarettes, uncomplicated (6) Opioid dependence on agonist therapy Current Visit: Yes Status: Chronic (7) Dehydration Current Visit: No Status: Acute (8) Insomnia Current Visit: No Status: Acute (9) Insomnia Current Visit: No Status: Acute (10) Opioid dependence Current Visit: No Status: Acute (11) Weight loss Current Visit: No Status: Acute (12) Drug-induced mood disorder Current Visit: No Status: Chronic (13) History of dental problems Current Visit: No Status: Chronic (14) Methadone maintenance therapy patient Current Visit: No Status: Chronic (15) Depressed Current Visit: No Status: Suspected Qualifiers: Depression Type: unspecified Qualified Code(s): F32.9 - Major depressive disorder, single episode, unspecified (16) Drug-induced mood disorder Current Visit: No Status: Suspected (17) Sedative, hypnotic or anxiolytic dependence with withdrawal, uncomplicated Current Visit: No Status: Inactive - AMA Did Patient Leave Against Medical Advice: No (referred to [facility])
[2018-08-02] MEDS ORDERED: diazePAM 5 MG TABLET PO SCH (10:00)
== END 2018-08-02 08:25 | disposition home or self-care (01) | DRG 773 ==
LOC: YASAS 14:31 → Y6N 18:39
PROC: HZ2ZZZZ Detoxification Services for Substance Abuse Treatment (ICD-10-PCS; principal; 2018-07-29)
DX: F10.230 Alcohol dependence with withdrawal, uncomplicated (principal); F13.20 Sedative, hypnotic or anxiolytic dependence, uncomplicated; F14.20 Cocaine dependence, uncomplicated; F12.20 Cannabis dependence, uncomplicated; F11.20 Opioid dependence, uncomplicated; F17.210 Nicotine dependence, cigarettes, uncomplicated; F32.9 Major depressive disorder, single episode, unspecified; F19.24 Other psychoactive substance dependence with psychoactive substance-induced mood disorder; B18.2 Chronic viral hepatitis C; G47.00 Insomnia, unspecified; E86.0 Dehydration; K08.9 Disorder of teeth and supporting structures, unspecified; R63.4 Abnormal weight loss; Z68.26 Body mass index [BMI] 26.0-26.9, adult
CPT/HCPCS: 36415; 80053; 85027; 86593; 87389

== ENCOUNTER 2018-10-11 09:43 | Inpatient (IN) | payer OTHER ==
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
[2018-10-11] MEDS ORDERED: NICOTINE POLACRILEX 2 MG GUM BC PRN (11:51)
[2018-10-11] MEDS ORDERED: MAG HYDROX/AL HYDROX/SIMETH 30 ML UNIT-DOSE CUP PO PRN (11:51)
[2018-10-11] MEDS ORDERED: IBUPROFEN 400 MG TABLET (FP) PO PRN (11:51)
[2018-10-11] MEDS ORDERED: ACETAMINOPHEN 325 MG TABLET (FP) PO PRN (11:51)
[2018-10-11] MEDS ORDERED: MENTHOL/PHENOL 1 EACH UD MM PRN (11:51)
[2018-10-11] MEDS ORDERED: MAGNESIUM HYDROX 2400MG/30ML ORAL SUSPENSION 30 ML CUP PO PRN (11:51)
[2018-10-11] MEDS ORDERED: MAGNESIUM CITRATE 300 ML BOTTLE PO PRN (11:51)
[2018-10-11] MEDS ORDERED: diazePAM 5 MG TABLET PO PRN (11:51)
[2018-10-11] MEDS ORDERED: LOPERAMIDE HCL 2 MG CAPSULE PO PRN (11:51)
[2018-10-11] MEDS ORDERED: P-EPHED 60MG/TRIPROLIDI 2.5MG TABLET PO PRN (11:51)
[2018-10-11] MEDS ORDERED: hydrOXYzine PAMOATE 25 MG CAPSULE (FP) PO PRN (12:01)
[2018-10-11 12:47] VITALS: BMI 25.7
[2018-10-11] MEDS ORDERED: diazePAM 5 MG TABLET PO ONE (13:30)
[2018-10-11] MEDS ORDERED: METHADONE HCL 10 MG TABLET (FOR DETOX USE ONLY) PO ONE ×2 (13:45→23:00)
[2018-10-11] MEDS: guaiFENesin/D-METHORPHAN HB 10 ML UNIT-DOSE CUPS PO PRN (13:58)
[2018-10-11] MEDS: CEPHALEXIN MONOHYDRATE 500 MG CAPSULE (UD) PO SCH ×2 (13:58→22:21)
[2018-10-11] MEDS: diazePAM 5 MG TABLET PO SCH ×2 (13:58→22:22)
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
[2018-10-11] MEDS ORDERED: THIAMINE HCL 100 MG TABLET (FP) PO SCH (22:00)
[2018-10-11] MEDS ORDERED: MELATONIN 5 MG TABLETS PO PRN (22:00)
[2018-10-11] MEDS ORDERED: MICONAZOLE NITRATE 2% VAGINAL CREAM 45 GM TUBE VG SCH (22:00)
[2018-10-12] MEDS: diazePAM 5 MG TABLET PO SCH ×2 (05:52→13:02)
[2018-10-12] MEDS: CEPHALEXIN MONOHYDRATE 500 MG CAPSULE (UD) PO SCH ×2 (05:52→13:02)
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
[2018-10-12] MEDS ORDERED: PRENATAL VITAMINS W/ FOLIC ACID TABLET (FP) PO SCH (10:00)
[2018-10-12] MEDS ORDERED: METHADONE HCL 10 MG TABLET (FOR DETOX USE ONLY) PO SCH (10:00)
[2018-10-12 11:38] LABS: ALBUMIN 3.3 g/dl (3.4-5.0); ALK PHOS 77 U/L (45-117); ANION GAP 5 MMOL/L (8-16); BILIRUBIN,TOTAL 0.7 mg/dL (0.2-1); BLOOD UREA NITROGEN 7 mg/dL (7-18); CALCIUM 8.8 mg/dL (8.5-10.1); CHLORIDE 109 mmol/L (98-107); CO2 26 mmol/L (21-32); CREATININE 0.8 mg/dL (0.55-1.3); GLUCOSE,RANDOM 93 mg/dL (74-106); POTASSIUM 4.5 mmol/L (3.5-5.1); SGOT/AST 16 U/L (15-37); SGPT/ALT 19 U/L (13-61); SODIUM 140 mmol/L (136-145); TOT PROT 7.4 g/dl (6.4-8.2)
[2018-10-12 11:49] LABS: HEMATOCRIT 35.5 % (32.4-45.2); MCH 28.2 pg (25.7-33.7); MCHC 33.8 g/dl (32.0-36.0); MEAN CELL VOLUME 83.4 fl (80-96); MEAN PLT VOLUME 7.6 fl (7.5-11.1); PLATELET COUNT 333 K/MM3 (134-434); RBC 4.25 M/mm3 (3.60-5.2); RDW 14.1 % (11.6-15.6); WHITE BLOOD COUNT 5.3 K/mm3 (4.0-10.0)
[2018-10-12] MEDS: guaiFENesin/D-METHORPHAN HB 10 ML UNIT-DOSE CUPS PO PRN (12:29)
[2018-10-12 13:35] VITALS: BP 124/74; PULSE 76; TEMP 97
--- NOTE | 2018-10-12 15:05 | DS ---
[facility] Detox Discharge Summary Admission Date: 10/11/18 Discharge Date: 10/12/18 - History Present History: Alcohol Dependence, Opioid Dependence, Sedative Dependence Additional Comments: 32 years old female admitted on 10/11/18 for alcohol opioid and benzo withdrawal stabilization insists to leave the detox unit that she was in methadone program "[facility] " was doing well but recent relapse last visit a month ago patient wants to return to medication assisted treatment program reestablishing the dosage Pertinent Past History: multidisciplinary team approach counselor nurse and medical provider met and encourage the patient to medication assisted treatment program for intake patient is alert no acute distress denies suicidal ideation encourage cigarette cessation and consider suboxone maintenance program - Physical Exam Results Vital Signs: Vital Signs Temperature 97.0 F L 10/12/18 13:33 Pulse Rate 76 10/12/18 13:33 Respiratory Rate 18 10/12/18 13:33 Blood Pressure 124/74 10/12/18 13:33 O2 Sat by Pulse Oximetry (%) Pertinent Admission Physical Exam Findings: alcohol opioid and benzo withdrawal sx Laboratory Last Values WBC 5.3 K/mm3 (4.0-10.0) 10/12/18 08:00 RBC 4.25 M/mm3 (3.60-5.2) 10/12/18 08:00 Hgb 12.0 GM/dL (10.7-15.3) 10/12/18 08:00 Hct 35.5 % (32.4-45.2) 10/12/18 08:00 MCV 83.4 fl (80-96) 10/12/18 08:00 MCH 28.2 pg (25.7-33.7) 10/12/18 08:00 MCHC 33.8 g/dl (32.0-36.0) 10/12/18 08:00 RDW 14.1 % (11.6-15.6) 10/12/18 08:00 Plt Count 333 K/MM3 (134-434) 10/12/18 08:00 MPV 7.6 fl (7.5-11.1) 10/12/18 08:00 Sodium 140 mmol/L (136-145) 10/12/18 08:00 Potassium 4.5 mmol/L (3.5-5.1) 10/12/18 08:00 Chloride 109 mmol/L (98-107) H 10/12/18 08:00 Carbon Dioxide 26 mmol/L (21-32) 10/12/18 08:00 Anion Gap 5 MMOL/L (8-16) L 10/12/18 08:00 BUN 7 mg/dL (7-18) 10/12/18 08:00 Creatinine 0.8 mg/dL (0.55-1.3) 10/12/18 08:00 Creat Clearance w eGFR > 60 (>60) 10/12/18 08:00 Random Glucose 93 mg/dL (74-106) 10/12/18 08:00 Calcium 8.8 mg/dL (8.5-10.1) 10/12/18 08:00 Total Bilirubin 0.7 mg/dL (0.2-1) 10/12/18 08:00 AST 16 U/L (15-37) 10/12/18 08:00 ALT 19 U/L (13-61) 10/12/18 08:00 Alkaline Phosphatase 77 U/L (45-117) 10/12/18 08:00 Total Protein 7.4 g/dl (6.4-8.2) 10/12/18 08:00 Albumin 3.3 g/dl (3.4-5.0) L 10/12/18 08:00 RPR Titer Nonreactive (NONREACTIVE) 10/12/18 08:00 HIV 1&2 Antibody Screen Negative 10/12/18 08:00 HIV P24 Antigen Negative 10/12/18 08:00 lab noted - Treatment Hospital Course: Detox Protocol Followed, Responded well Patient has Accepted a Rehab Referral to: methadone assisted treatment program - Medication Discharge Medications: Ambulatory Orders NK [No Known Home Medication] 10/11/18 - Diagnosis (1) Alcohol dependence with uncomplicated withdrawal Current Visit: Yes Status: Acute (2) Hepatitis C Current Visit: Yes Status: Chronic Qualifiers: Viral hepatitis chronicity: unspecified Hepatic coma status: without hepatic coma Qualified Code(s): B19.20 - Unspecified viral hepatitis C without hepatic coma (3) Sedative, hypnotic or anxiolytic dependence with withdrawal, uncomplicated Current Visit: Yes Status: Acute (4) Nicotine dependence Current Visit: Yes Status: Acute Qualifiers: Nicotine product type: cigarettes Substance use status: in withdrawal Qualified Code(s): F17.213 - Nicotine dependence, cigarettes, with withdrawal (5) Substance induced mood disorder Current Visit: Yes Status: Suspected - AMA Did Patient Leave Against Medical Advice: Yes
[2018-10-12] MEDS ORDERED: traZODone HCL 50 MG TABLET (FP) PO SCH (22:00)
[2018-10-13] MEDS ORDERED: diazePAM 5 MG TABLET PO SCH (10:00)
[2018-10-13] MEDS ORDERED: METHADONE HCL 5 MG TABLET (FOR DETOX USE ONLY) PO SCH (10:00)
[2018-10-15] MEDS ORDERED: diazePAM 5 MG TABLET PO SCH (10:00)
[2018-10-15] MEDS ORDERED: METHADONE HCL 10 MG TABLET (FOR DETOX USE ONLY) PO SCH (10:00)
[2018-10-16] MEDS ORDERED: METHADONE HCL 5 MG TABLET (FOR DETOX USE ONLY) PO SCH (06:00)
== END 2018-10-12 15:04 | disposition left against medical advice (07) | DRG 770 ==
LOC: YASAS 09:43 → Y3N 12:41
PROVIDERS: ADMIT Surgery; ATTEND Surgery
PROC: HZ2ZZZZ Detoxification Services for Substance Abuse Treatment (ICD-10-PCS; principal; 2018-10-11)
DX: F11.23 Opioid dependence with withdrawal (principal); F10.230 Alcohol dependence with withdrawal, uncomplicated; F13.230 Sedative, hypnotic or anxiolytic dependence with withdrawal, uncomplicated; F14.20 Cocaine dependence, uncomplicated; F17.213 Nicotine dependence, cigarettes, with withdrawal; F19.24 Other psychoactive substance dependence with psychoactive substance-induced mood disorder; E86.0 Dehydration; B19.20 Unspecified viral hepatitis C without hepatic coma; N89.8 Other specified noninflammatory disorders of vagina
CPT/HCPCS: 36415; 80053; 85027; 86593; 87389; 87491; 87591; 87661

== ENCOUNTER 2018-11-01 10:57 | Inpatient (IN) | payer OTHER ==
[2018-11-01 11:10] VITALS: BMI 25.7
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
[2018-11-01] MEDS ORDERED: DICYCLOMINE HCL 10 MG CAPSULE PO PRN (13:25)
[2018-11-01] MEDS ORDERED: METHOCARBAMOL 500 MG TABLET PO PRN (13:25)
[2018-11-01] MEDS ORDERED: MENTHOL/PHENOL 1 EACH UD MM PRN (13:25)
[2018-11-01] MEDS ORDERED: BISMUTH SUBSALICYLATE 262 MG/15 ML BTL PO PRN (13:25)
[2018-11-01] MEDS ORDERED: MAG HYDROX/AL HYDROX/SIMETH 30 ML UNIT-DOSE CUP PO PRN (13:25)
[2018-11-01] MEDS ORDERED: MAGNESIUM HYDROX 2400MG/30ML ORAL SUSPENSION 30 ML CUP PO PRN (13:25)
[2018-11-01] MEDS ORDERED: NICOTINE POLACRILEX 2 MG GUM BUC PRN (13:25)
[2018-11-01] MEDS ORDERED: MAGNESIUM CITRATE 300 ML BOTTLE PO PRN (13:25)
[2018-11-01] MEDS ORDERED: ACETAMINOPHEN 325 MG TABLET (FP) PO PRN ×2 (13:25)
[2018-11-01] MEDS ORDERED: diazePAM 5 MG TABLET PO PRN (13:32)
[2018-11-01] MEDS ORDERED: METHADONE HCL 10 MG TABLET (FOR DETOX USE ONLY) PO ONE ×3 (14:00→23:00)
[2018-11-01] MEDS ORDERED: METHADONE HCL 10 MG TABLET PO ONE (14:20)
[2018-11-01] MEDS: cloNIDine HCL 0.1 MG TABLET PO PRN ×2 (15:24→22:13)
[2018-11-01] MEDS: diazePAM 5 MG TABLET PO PRN (15:26)
[2018-11-01] MEDS: hydrOXYzine PAMOATE 25 MG CAPSULE (FP) PO PRN (17:46)
[2018-11-01] MEDS: IBUPROFEN 400 MG TABLET (FP) PO PRN (17:46)
[2018-11-01] MEDS ORDERED: diazePAM 5 MG TABLET PO SCH (22:00)
[2018-11-01] MEDS: diazePAM 5 MG TABLET PO SCH (22:12)
[2018-11-01] MEDS: THIAMINE HCL 100 MG TABLET (FP) PO SCH (22:12)
[2018-11-01] MEDS: traZODone HCL 50 MG TABLET (FP) PO PRN (22:13)
[2018-11-02] MEDS: diazePAM 5 MG TABLET PO SCH ×3 (05:36→21:28)
[2018-11-02] MEDS ORDERED: METHADONE HCL 10 MG TABLET (FOR DETOX USE ONLY) PO ONE (10:00)
[2018-11-02 10:23] LABS: HEMATOCRIT 36.4 % (32.4-45.2); HEMOGLOBIN 12.1 GM/dL (10.7-15.3); MCHC 33.4 g/dl (32.0-36.0); MEAN PLT VOLUME 8.2 fl (7.5-11.1); PLATELET COUNT 305 K/MM3 (134-434); RBC 4.33 M/mm3 (3.60-5.2); RDW 14.7 % (11.6-15.6); WHITE BLOOD COUNT 9.1 K/mm3 (4.0-10.0)
[2018-11-02 10:28] LABS: ALBUMIN 3.8 g/dl (3.4-5.0); ALK PHOS 76 U/L (45-117); ANION GAP 5 MMOL/L (8-16); BILIRUBIN,TOTAL 0.3 mg/dL (0.2-1); BLOOD UREA NITROGEN 9 mg/dL (7-18); CALCIUM 8.7 mg/dL (8.5-10.1); CHLORIDE 103 mmol/L (98-107); CO2 29 mmol/L (21-32); CREATININE 0.8 mg/dL (0.55-1.3); GLUCOSE,RANDOM 75 mg/dL (74-106); SGOT/AST 15 U/L (15-37); SGPT/ALT 15 U/L (13-61); SODIUM 137 mmol/L (136-145); TOT PROT 7.7 g/dl (6.4-8.2)
[2018-11-02] MEDS: cloNIDine HCL 0.1 MG TABLET PO PRN (10:48)
[2018-11-02] MEDS: PRENATAL VITAMINS W/ FOLIC ACID TABLET (FP) PO SCH (10:48)
[2018-11-02] MEDS: diazePAM 5 MG TABLET PO PRN ×2 (10:50→18:26)
[2018-11-02] MEDS: ONDANSETRON *ODT* 4 MG TABLET SL PRN (11:31)
--- NOTE | 2018-11-02 12:42 | PN ---
S CIWA - CIWA Score Nausea/Vomitin-Mild Nausea/No Vomiting Muscle Tremors: 4-Moderate,w/Arms Extend Anxiety: 4-Mod. Anxious/Guarded Agitation: 4-Moderately Restless Paroxysmal Sweats: 3 Orientation: 0-Oriented Tacttile Disturbances: 0-None Auditory Disturbances: 0-None Visual Disturbances: 0-None Headache: 0-None Present CIWA-Ar Total Score: 16 [facility] COWS - Scale Resting Pulse: 0= [place] 80 or Below Sweatin=Flushed/Facial Moisture Restless Observation: 1= Difficult to Sit Still Pupil Size: 0= Normal to Room Light Bone or Joint Aches: 2= Severe Diffuse Aches Runny Nose/ Eye Tearin= Nasal Congestion GI Upset > 30mins: 1= Stomach Cramp Tremor Observation of Outstretched Hands: 2= Slight Tremor Visible Yawning Observation: 2= >3x During Session Anxiety or Irritability: 2=Irritable/Anxious Goose Flesh Skin: 0=Smooth Skin COWS Score: 13 [facility] Progress Note (SOAP) Subjective: sweats shakes irritable agitation anxiety chills interrupted sleep low appetite nausea fishy vaginal odor with discharge Objective: 11/02/18 12:40 Vital Signs Temperature 98.2 F 11/02/18 09:12 Pulse Rate 60 11/02/18 09:12 Respiratory Rate 18 11/02/18 09:12 Blood Pressure 117/69 11/02/18 09:12 O2 Sat by Pulse Oximetry (%) Laboratory Tests 11/02/18 11/02/18 06:00 06:00 WBC 9.1 RBC 4.33 Hgb 12.1 Hct 36.4 MCV 84.0 MCH 28.0 MCHC 33.4 RDW 14.7 Plt Count 305 MPV 8.2 Sodium 137 Potassium 4.0 Chloride 103 Carbon Dioxide 29 Anion Gap 5 L BUN 9 Creatinine 0.8 Creat Clearance w eGFR > 60 Random Glucose 75 Calcium 8.7 Total Bilirubin 0.3 AST 15 ALT 15 Alkaline Phosphatase 76 Total Protein 7.7 Albumin 3.8 aaox3 ambulating no acute distress Assessment: 11/02/18 12:41 withdrawal sx Plan: continue detox increase fluids dietary consultation ordered flagyl abx ordered zofran prn ensure bid
[2018-11-02] MEDS: metroNIDAZOLE 250 MG TABLET PO SCH ×2 (13:33→21:27)
[2018-11-02] MEDS: hydrOXYzine PAMOATE 25 MG CAPSULE (FP) PO PRN (13:34)
[2018-11-02] MEDS: guaiFENesin 200 MG/10 ML 10 ML UNIT-DOSE CUPS PO PRN (13:35)
--- NOTE | 2018-11-02 15:20 | PN ---
[facility] Progress Note Note: pt was yelling, screaming, cursing, threatening, and menacing that to staff regarding her food. Pt was redirected to speak with staff members. justowriter operator, counseling service transformer repair supervisor, counselor, rn and rn service transformer repair supervisor also was informed about pt behavior and lack of re-directing. Pt was placed on a behavior contract which she signed. Pt will continue to be monitor.
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
[2018-11-02 17:26] LABS: URINE APPEARANCE TURBID; URINE BILIRUBIN NEGATIVE (<2.0 mg/dL); URINE COLOR AMBER; URINE GLUCOSE (UA) NEGATIVE (NEGATIVE); URINE KETONE NEGATIVE (NEGATIVE); URINE LEUK ESTERASE TRACE (NEGATIVE); URINE NITRITE NEGATIVE (NEGATIVE); URINE PROTEIN NEGATIVE (NEGATIVE); URINE UROBILINOGEN NEGATIVE mg/dL (0.2-1.0)
[2018-11-02 18:00] LABS: CALCIUM OXALATE CRYSTALS MODERATE /hpf (NONE SEEN); EPI CELLS FEW /HPF (FEW); URINE BACTERIA FEW /hpf (NONE SEEN); URINE MUCUS FEW
[2018-11-02] MEDS: THIAMINE HCL 100 MG TABLET (FP) PO SCH (21:29)
[2018-11-02] MEDS: MELATONIN 5 MG TABLETS PO PRN (21:29)
[2018-11-03] MEDS: metroNIDAZOLE 250 MG TABLET PO SCH ×3 (05:37→22:32)
[2018-11-03] MEDS: diazePAM 5 MG TABLET PO PRN ×4 (08:34→23:23)
[2018-11-03] MEDS ORDERED: diazePAM 5 MG TABLET PO SCH (10:00)
[2018-11-03] MEDS ORDERED: METHADONE HCL 10 MG TABLET (FOR DETOX USE ONLY) PO ONE (10:00)
[2018-11-03] MEDS: diazePAM 5 MG TABLET PO SCH ×2 (10:11→22:32)
[2018-11-03] MEDS: PRENATAL VITAMINS W/ FOLIC ACID TABLET (FP) PO SCH (10:11)
[2018-11-03] MEDS: ONDANSETRON *ODT* 4 MG TABLET SL PRN (11:01)
--- NOTE | 2018-11-03 14:10 | PN ---
[facility] CIWA - CIWA Score Nausea/Vomitin-No Nausea/No Vomiting Muscle Tremors: 3 Anxiety: 3 Agitation: 3 Paroxysmal Sweats: 3 Orientation: 0-Oriented Tacttile Disturbances: 0-None Auditory Disturbances: 0-None Visual Disturbances: 0-None Headache: 0-None Present CIWA-Ar Total Score: 12 S COWS - Scale Resting Pulse: 1= [place] 81-100 Sweatin= Chills/Flushing Restless Observation: 1= Difficult to Sit Still Pupil Size: 0= Normal to Room Light Bone or Joint Aches: 1= Mild Discomfort Runny Nose/ Eye Tearin= None GI Upset > 30mins: 2= Nausea/Diarrhea Tremor Observation of Outstretched Hands: 1= Tremor [place], Not Seen Yawning Observation: 1= 1-2x During Session Anxiety or Irritability: 2=Irritable/Anxious Goose Flesh Skin: 0=Smooth Skin COWS Score: 10 [facility] Progress Note (SOAP) Subjective: agitation sweats shakes nausea Objective: 11/03/18 14:10 Vital Signs Temperature 98.1 F 11/03/18 09:47 Pulse Rate 82 11/03/18 09:47 Respiratory Rate 18 11/03/18 09:47 Blood Pressure 117/76 11/03/18 09:47 O2 Sat by Pulse Oximetry (%) Laboratory Tests 11/02/18 11/02/18 11/02/18 06:00 06:00 06:00 WBC 9.1 RBC 4.33 Hgb 12.1 Hct 36.4 MCV 84.0 MCH 28.0 MCHC 33.4 RDW 14.7 Plt Count 305 MPV 8.2 Sodium 137 Potassium 4.0 Chloride 103 Carbon Dioxide 29 Anion Gap 5 L BUN 9 Creatinine 0.8 Creat Clearance w eGFR > 60 Random Glucose 75 Calcium 8.7 Total Bilirubin 0.3 AST 15 ALT 15 Alkaline Phosphatase 76 Total Protein 7.7 Albumin 3.8 Urine Color Urine Appearance Urine pH Ur Specific [place] Urine Protein Urine Glucose (UA) Urine Ketones Urine Blood Urine Nitrite Urine Bilirubin Urine Urobilinogen Ur Leukocyte Esterase Urine WBC (Auto) Urine RBC (Auto) Ur Epithelial Cells Calcium Oxalate Crystal Urine Bacteria Urine Mucus RPR Titer Nonreactive 11/02/18 15:45 WBC RBC Hgb Hct MCV MCH MCHC RDW Plt Count MPV Sodium Potassium Chloride Carbon Dioxide Anion Gap BUN Creatinine Creat Clearance w eGFR Random Glucose Calcium Total Bilirubin AST ALT Alkaline Phosphatase Total Protein Albumin Urine Color [place] Urine Appearance Turbid Urine pH 5.0 D Ur Specific [place] 1.015 Urine Protein Negative Urine Glucose (UA) Negative Urine Ketones Negative Urine Blood Negative Urine Nitrite Negative Urine Bilirubin Negative Urine Urobilinogen Negative Ur Leukocyte Esterase Trace Urine WBC (Auto) 6 Urine RBC (Auto) 4 Ur Epithelial Cells Few Calcium Oxalate Crystal Moderate Urine Bacteria Few Urine Mucus Few RPR Titer aaox3 ambulating no acute distress Assessment: 11/03/18 14:10 withdrawal sx Plan: continue detox increase fluids
[2018-11-03] MEDS: guaiFENesin 200 MG/10 ML 10 ML UNIT-DOSE CUPS PO PRN (14:19)
[2018-11-03] MEDS: hydrOXYzine PAMOATE 25 MG CAPSULE (FP) PO PRN (17:56)
[2018-11-03] MEDS: traZODone HCL 50 MG TABLET (FP) PO PRN (22:32)
[2018-11-03] MEDS: cloNIDine HCL 0.1 MG TABLET PO PRN (22:32)
[2018-11-03] MEDS: THIAMINE HCL 100 MG TABLET (FP) PO SCH (22:34)
[2018-11-04] MEDS: metroNIDAZOLE 250 MG TABLET PO SCH ×3 (05:38→22:18)
[2018-11-04] MEDS ORDERED: diazePAM 5 MG TABLET PO SCH ×2 (06:00)
[2018-11-04] MEDS ORDERED: BACLOFEN 10 MG TABLET (FP) PO ONE (09:11)
[2018-11-04] MEDS ORDERED: METHADONE HCL 10 MG TABLET (FOR DETOX USE ONLY) PO ONE (10:00)
[2018-11-04] MEDS: PRENATAL VITAMINS W/ FOLIC ACID TABLET (FP) PO SCH (10:44)
[2018-11-04] MEDS: diazePAM 5 MG TABLET PO PRN (10:47)
[2018-11-04] MEDS: ONDANSETRON *ODT* 4 MG TABLET SL PRN (12:00)
--- NOTE | 2018-11-04 13:19 | PN ---
[facility] Progress Note (SOAP) Subjective: anxiety Objective: 11/04/18 13:17 Vital Signs Temperature 97.7 F 11/04/18 09:43 Pulse Rate 93 H 11/04/18 09:43 Respiratory Rate 18 11/04/18 09:43 Blood Pressure 103/76 11/04/18 09:43 O2 Sat by Pulse Oximetry (%) aaox3 ambulating no acute distress Assessment: 11/04/18 13:18 mild withdrawal sx Plan: continue detox increase fluids d/c in am
[2018-11-04] MEDS: BACLOFEN 10 MG TABLET (FP) PO SCH ×2 (13:46→22:18)
[2018-11-04] MEDS: hydrOXYzine PAMOATE 25 MG CAPSULE (FP) PO PRN ×2 (15:33→22:18)
[2018-11-04] MEDS: IBUPROFEN 400 MG TABLET (FP) PO PRN (22:18)
[2018-11-04] MEDS: traZODone HCL 50 MG TABLET (FP) PO PRN (22:18)
[2018-11-04] MEDS: THIAMINE HCL 100 MG TABLET (FP) PO SCH (22:18)
[2018-11-04] MEDS: MELATONIN 5 MG TABLETS PO PRN (22:19)
[2018-11-05] MEDS ORDERED: METHADONE HCL 5 MG TABLET (FOR DETOX USE ONLY) PO ONE (06:00)
[2018-11-05] MEDS: metroNIDAZOLE 250 MG TABLET PO SCH (06:17)
[2018-11-05] MEDS: BACLOFEN 10 MG TABLET (FP) PO SCH (06:20)
[2018-11-05 09:27] VITALS: BP 117/70; PULSE 103; TEMP 98.1
--- NOTE | 2018-11-05 10:13 | DS ---
[facility] Detox Discharge Summary Admission Date: 11/01/18 Discharge Date: 11/05/18 - History Present History: Alcohol Dependence, Cannabis Dependence, Cocaine Dependence, Opioid Dependence, Sedative Dependence - Physical Exam Results Vital Signs: Vital Signs Temperature 98.1 F 11/05/18 09:26 Pulse Rate 103 H 11/05/18 09:26 Respiratory Rate 18 11/05/18 09:26 Blood Pressure 117/70 11/05/18 09:26 O2 Sat by Pulse Oximetry (%) - Treatment Hospital Course: Detox Protocol Followed, Detoxed Safely, Responded well, Discharged Condition Good, Rehab Referral Accepted - Medication Discharge Medications: Ambulatory Orders NK [No Known Home Medication] 10/11/18 - Diagnosis (1) Alcohol dependence with uncomplicated withdrawal Current Visit: Yes Status: Chronic (2) Opioid dependence with withdrawal Current Visit: Yes Status: Chronic (3) Cocaine dependence, uncomplicated Current Visit: Yes Status: Chronic (4) Insomnia Current Visit: Yes Status: Chronic Qualifiers: Insomnia type: primary Qualified Code(s): F51.01 - Primary insomnia (5) Marihuana dependence Current Visit: Yes Status: Chronic (6) Nicotine dependence Current Visit: Yes Status: Chronic Qualifiers: Nicotine product type: cigarettes Substance use status: in withdrawal Qualified Code(s): F17.213 - Nicotine dependence, cigarettes, with withdrawal (7) Non-compliance Current Visit: Yes Status: Chronic (8) Substance induced mood disorder Current Visit: Yes Status: Chronic (9) Dehydration Current Visit: No Status: Acute (10) Insomnia Current Visit: No Status: Acute (11) Opioid dependence Current Visit: Yes Status: Chronic Qualifiers: Substance use status: uncomplicated Qualified Code(s): F11.20 - Opioid dependence, uncomplicated (12) Sedative, hypnotic or anxiolytic dependence with withdrawal, uncomplicated Current Visit: Yes Status: Chronic (13) Substance-induced sleep disorder Current Visit: No Status: Acute (14) Uncomplicated sedative, hypnotic or anxiolytic withdrawal Current Visit: Yes Status: Chronic (15) Drug-induced mood disorder Current Visit: No Status: Chronic (16) Hepatitis C Current Visit: Yes Status: Chronic Qualifiers: Viral hepatitis chronicity: unspecified Hepatic coma status: without hepatic coma Qualified Code(s): B19.20 - Unspecified viral hepatitis C without hepatic coma (17) History of dental problems Current Visit: No Status: Chronic (18) Depressed Current Visit: No Status: Suspected Qualifiers: Depression Type: unspecified Qualified Code(s): F32.9 - Major depressive disorder, single episode, unspecified (19) Drug-induced mood disorder Current Visit: No Status: Suspected - AMA Did Patient Leave Against Medical Advice: No ([facility]
[2018-11-05] MEDS: PRENATAL VITAMINS W/ FOLIC ACID TABLET (FP) PO SCH (10:34)
== END 2018-11-05 11:33 | disposition other institution (70) | DRG 773 ==
LOC: YASAS 10:57 → Y6N 14:07
PROVIDERS: ADMIT Surgery; ATTEND Surgery
PROC: HZ2ZZZZ Detoxification Services for Substance Abuse Treatment (ICD-10-PCS; principal; 2018-11-01)
DX: F11.23 Opioid dependence with withdrawal (principal); F10.230 Alcohol dependence with withdrawal, uncomplicated; F13.230 Sedative, hypnotic or anxiolytic dependence with withdrawal, uncomplicated; F14.20 Cocaine dependence, uncomplicated; F12.20 Cannabis dependence, uncomplicated; F17.213 Nicotine dependence, cigarettes, with withdrawal; F19.282 Other psychoactive substance dependence with psychoactive substance-induced sleep disorder; F19.24 Other psychoactive substance dependence with psychoactive substance-induced mood disorder; F33.9 Major depressive disorder, recurrent, unspecified; F90.9 Attention-deficit hyperactivity disorder, unspecified type; F41.9 Anxiety disorder, unspecified; F51.05 Insomnia due to other mental disorder; E87.6 Hypokalemia; B19.20 Unspecified viral hepatitis C without hepatic coma; Z91.19 Patient's noncompliance with other medical treatment and regimen
CPT/HCPCS: 36415; 80053; 81003; 81015; 85027; 86593; J0475; J0735; Q0162

== ENCOUNTER 2018-11-05 11:39 | Inpatient (IN) | payer OTHER ==
--- NOTE | 2018-11-05 11:01 | HP ---
[facility] Rehab Assess/Revision - Admission History Admitted to Rehab from: [facility] - Findings Detox History & Physical reviewed: Yes Concur with findings: Yes Inpatient Rehab Admission - Rehab Decision to Admit Inpatient rehab admission?: Yes - Initial Determination Are CD services needed?: Yes Free of communicable disease: Yes Not in need of hospitalization: Yes - Rehab Admission Criteria Previous failed treatment: Yes Poor recovery environment: Yes Comorbidities: Yes Lacks judgement: Yes Patient is meeting Inpatient Rehab admission criteria:: Yes
[~2018-11-05 11:39] MED LIST: ACETAMINOPHEN 325 MG TABLET (FP) PO PRN; IBUPROFEN 400 MG TABLET (FP) PO PRN; LOPERAMIDE HCL 2 MG CAPSULE PO PRN; MAG HYDROX/AL HYDROX/SIMETH 30 ML UNIT-DOSE CUP PO PRN; MAGNESIUM CITRATE 300 ML BOTTLE PO PRN; MAGNESIUM HYDROX 2400MG/30ML ORAL SUSPENSION 30 ML CUP PO PRN; MENTHOL/PHENOL 1 EACH UD MM PRN; NICOTINE POLACRILEX 4 MG GUM BUC PRN; P-EPHED 60MG/TRIPROLIDI 2.5MG TABLET PO PRN; guaiFENesin 200 MG/10 ML 10 ML UNIT-DOSE CUPS PO PRN; hydrOXYzine PAMOATE 50 MG CAPSULE (FP) PO PRN
[2018-11-05] MEDS: metroNIDAZOLE 250 MG TABLET PO SCH ×2 (14:02→21:38)
[2018-11-05] MEDS: BACLOFEN 10 MG TABLET (FP) PO SCH ×2 (14:03→21:38)
[2018-11-05] MEDS ORDERED: THIAMINE HCL 100 MG TABLET (FP) PO SCH (22:00)
[2018-11-05] MEDS ORDERED: MELATONIN 5 MG TABLETS PO PRN (22:00)
[2018-11-06] MEDS: metroNIDAZOLE 250 MG TABLET PO SCH (06:00)
[2018-11-06] MEDS: BACLOFEN 10 MG TABLET (FP) PO SCH (06:00)
[2018-11-06] MEDS ORDERED: ONDANSETRON *ODT* 4 MG TABLET SL PRN (06:34)
[2018-11-06 06:55] VITALS: BP 154/92; PULSE 72; TEMP 97.6
--- NOTE | 2018-11-06 09:34 | PN ---
[facility] Progress Note Note: informed by nurse that patient did not want to continue treatment.all convince by the staff with no avail,did not want to wait, left the unit and signed release cee,nursing rubber goods supervisor informed by nurse Vital Signs Temperature 97.6 F 11/06/18 06:54 Pulse Rate 72 11/06/18 06:54 Respiratory Rate 18 11/06/18 06:54 Blood Pressure 154/92 11/06/18 06:54 O2 Sat by Pulse Oximetry (%) patient left the unit in stable condition
--- NOTE | 2018-11-06 09:39 | DS ---
[facility] Detox Discharge Summary Admission Date: 11/05/18 Discharge Date: 11/06/18 - History Present History: Alcohol Dependence, Cannabis Dependence, Cocaine Dependence, Opioid Dependence Additional Comments: this discharge summary is for rehab discharged,patient was admitted to rehab on 11/05/18 ,had been in detox from 11/01/18 to 11/05/18, patient singed release ama ,did not want to wait, left the unit in stable condition,declined to give reason,all convince by staff with no avail, risk of relapsing is high,patient to go to nearest emergency room if any emergency problem Pertinent Past History: nicotine dependence - Physical Exam Results Vital Signs: Vital Signs Temperature 97.6 F 11/06/18 06:54 Pulse Rate 72 11/06/18 06:54 Respiratory Rate 18 11/06/18 06:54 Blood Pressure 154/92 11/06/18 06:54 O2 Sat by Pulse Oximetry (%) Pertinent Admission Physical Exam Findings: Vital Signs Temperature 97.6 F 11/06/18 06:54 Pulse Rate 72 11/06/18 06:54 Respiratory Rate 18 11/06/18 06:54 Blood Pressure 154/92 11/06/18 06:54 O2 Sat by Pulse Oximetry (%) - Medication Discharge Medications: Ambulatory Orders NK [No Known Home Medication] 10/11/18 - AMA Did Patient Leave Against Medical Advice: Yes
[2018-11-06] MEDS ORDERED: NICOTINE 21 MG/24 HOURS TOPICAL PATCH TD SCH (10:00)
[2018-11-06] MEDS ORDERED: PRENATAL VITAMINS W/ FOLIC ACID TABLET (FP) PO SCH (10:00)
== END 2018-11-06 08:35 | disposition left against medical advice (07) | DRG 770 ==
LOC: YASAS 11:39 → Y3W 11:40
PROVIDERS: ADMIT Neuromusculoskeletal Medicine & OMM; ATTEND Neuromusculoskeletal Medicine & OMM
PROC: HZ41ZZZ Group Counseling for Substance Abuse Treatment, Behavioral (ICD-10-PCS; principal; 2018-11-05)
DX: F11.20 Opioid dependence, uncomplicated (principal); F10.20 Alcohol dependence, uncomplicated; F14.20 Cocaine dependence, uncomplicated; F12.20 Cannabis dependence, uncomplicated
CPT/HCPCS: J0475; Q0162

== ENCOUNTER 2018-11-29 13:48 | Inpatient (IN) | payer OTHER ==
[2018-11-29 18:10] VITALS: BMI 25.0
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
[2018-11-29] MEDS ORDERED: MELATONIN 5 MG TABLETS PO PRN (20:38)
[2018-11-29] MEDS ORDERED: IBUPROFEN 400 MG TABLET (FP) PO PRN (20:38)
[2018-11-29] MEDS ORDERED: METHOCARBAMOL 500 MG TABLET PO PRN (20:38)
[2018-11-29] MEDS ORDERED: MAGNESIUM HYDROX 2400MG/30ML ORAL SUSPENSION 30 ML CUP PO PRN (20:38)
[2018-11-29] MEDS ORDERED: MAGNESIUM CITRATE 300 ML BOTTLE PO PRN (20:38)
[2018-11-29] MEDS ORDERED: MENTHOL/PHENOL 1 EACH UD MM PRN (20:38)
[2018-11-29] MEDS ORDERED: cloNIDine HCL 0.1 MG TABLET PO PRN (20:38)
[2018-11-29] MEDS ORDERED: MAG HYDROX/AL HYDROX/SIMETH 30 ML UNIT-DOSE CUP PO PRN (20:38)
[2018-11-29] MEDS ORDERED: BISMUTH SUBSALICYLATE 524 MG/30 ML UD PO PRN (20:38)
[2018-11-29] MEDS ORDERED: ACETAMINOPHEN 325 MG TABLET (FP) PO PRN ×2 (20:38)
[2018-11-29] MEDS ORDERED: chlordiazePOXIDE HCL 25 MG CAPSULE PO PRN (20:38)
[2018-11-29] MEDS ORDERED: THIAMINE HCL 100 MG TABLET (FP) PO SCH (22:00)
[2018-11-29] MEDS: chlordiazePOXIDE HCL 25 MG CAPSULE PO SCH (22:17)
[2018-11-29] MEDS ORDERED: METHADONE HCL 10 MG TABLET (FOR DETOX USE ONLY) PO ONE (23:00)
[2018-11-30] MEDS: chlordiazePOXIDE HCL 25 MG CAPSULE PO SCH ×2 (05:38→10:18)
[2018-11-30] MEDS ORDERED: PRENATAL VITAMINS W/ FOLIC ACID TABLET (FP) PO SCH (10:00)
[2018-11-30] MEDS ORDERED: METHADONE HCL 10 MG TABLET (FOR DETOX USE ONLY) PO ONE (10:00)
[2018-11-30 10:38] LABS: HEMATOCRIT 38.1 % (32.4-45.2); HEMOGLOBIN 12.5 GM/dL (10.7-15.3); MCH 27.6 pg (25.7-33.7); MCHC 32.8 g/dl (32.0-36.0); MEAN CELL VOLUME 83.9 fl (80-96); MEAN PLT VOLUME 7.9 fl (7.5-11.1); PLATELET COUNT 295 K/MM3 (134-434); RBC 4.54 M/mm3 (3.60-5.2); RDW 15.2 % (11.6-15.6); WHITE BLOOD COUNT 4.7 K/mm3 (4.0-10.0)
[2018-11-30 10:43] LABS: ALBUMIN 3.4 g/dl (3.4-5.0); ALK PHOS 57 U/L (45-117); ANION GAP 3 MMOL/L (8-16); BILIRUBIN,TOTAL 0.6 mg/dL (0.2-1); BLOOD UREA NITROGEN 11 mg/dL (7-18); CALCIUM 8.8 mg/dL (8.5-10.1); CHLORIDE 106 mmol/L (98-107); CO2 28 mmol/L (21-32); CREATININE 0.8 mg/dL (0.55-1.3); GLUCOSE,RANDOM 89 mg/dL (74-106); POTASSIUM 4.2 mmol/L (3.5-5.1); SGOT/AST 14 U/L (15-37); SGPT/ALT 13 U/L (13-61); SODIUM 138 mmol/L (136-145); TOT PROT 7.1 g/dl (6.4-8.2)
--- NOTE | 2018-11-30 12:04 | PN ---
[facility] CIWA - CIWA Score Nausea/Vomitin-No Nausea/No Vomiting Muscle Tremors: 3 Anxiety: 3 Agitation: 3 Paroxysmal Sweats: 3 Orientation: 0-Oriented Tacttile Disturbances: 0-None Auditory Disturbances: 0-None Visual Disturbances: 0-None Headache: 0-None Present CIWA-Ar Total Score: 12 [facility] COWS - Scale Resting Pulse: 0= [place] 80 or Below Sweatin=Flushed/Facial Moisture Restless Observation: 1= Difficult to Sit Still Pupil Size: 0= Normal to Room Light Bone or Joint Aches: 2= Severe Diffuse Aches Runny Nose/ Eye Tearin= Runny Nose/Eyes GI Upset > 30mins: 1= Stomach Cramp Tremor Observation of Outstretched Hands: 2= Slight Tremor Visible Yawning Observation: 2= >3x During Session Anxiety or Irritability: 2=Irritable/Anxious Goose Flesh Skin: 0=Smooth Skin COWS Score: 14 S Progress Note (SOAP) Subjective: agitation anxiety sweats chills shakes interrupted sleep Objective: 11/30/18 12:03 Vital Signs Temperature 97.7 F 11/30/18 10:04 Pulse Rate 76 11/30/18 10:04 Respiratory Rate 18 11/30/18 10:04 Blood Pressure 110/66 11/30/18 10:04 O2 Sat by Pulse Oximetry (%) Laboratory Tests 11/30/18 11/30/18 11/30/18 07:00 07:00 07:00 WBC 4.7 RBC 4.54 Hgb 12.5 Hct 38.1 MCV 83.9 MCH 27.6 MCHC 32.8 RDW 15.2 Plt Count 295 MPV 7.9 Sodium 138 Potassium 4.2 Chloride 106 Carbon Dioxide 28 Anion Gap 3 L BUN 11 Creatinine 0.8 Creat Clearance w eGFR 84.22 Random Glucose 89 Calcium 8.8 Total Bilirubin 0.6 AST 14 L ALT 13 Alkaline Phosphatase 57 Total Protein 7.1 Albumin 3.4 RPR Titer Nonreactive aaox3 ambulating no acute distress Assessment: 11/30/18 12:04 withdrawal sx Plan: continue detox increase fluids
[2018-11-30 13:45] VITALS: BP 111/56; PULSE 69; TEMP 98.1
--- NOTE | 2018-11-30 15:36 | PN ---
[facility] Progress Note Note: pt was approached about her behaviour and refusing to follow up unit rules when she became irrate, agitated, cannot be redirected or unable to calm and reason to anyone speaking to her. Pt stormed out of her room and decided to sign out AMA. Pt refused to have anyone speak to her or job counselor her. security was called and pt was escorted off the unit. all belonging given to pt. pt declined any aftercare discharge papers as well.
--- NOTE | 2018-11-30 15:37 | DS ---
[facility] Detox Discharge Summary Admission Date: 11/29/18 - History Present History: Alcohol Dependence, Cannabis Dependence, Opioid Dependence, Sedative Dependence - Physical Exam Results Vital Signs: Vital Signs Temperature 98.1 F 11/30/18 13:44 Pulse Rate 69 11/30/18 13:44 Respiratory Rate 18 11/30/18 13:44 Blood Pressure 111/56 L 11/30/18 13:44 O2 Sat by Pulse Oximetry (%) - Treatment Hospital Course: Detox Protocol Followed, Discharged Condition Good - Medication Discharge Medications: Ambulatory Orders NK [No Known Home Medication] 11/29/18 - Diagnosis (1) Dehydration Current Visit: Yes Status: Acute (2) Alcohol dependence with uncomplicated withdrawal Current Visit: Yes Status: Chronic (3) Cocaine dependence, uncomplicated Current Visit: Yes Status: Chronic (4) Hepatitis C Current Visit: Yes Status: Chronic Qualifiers: Viral hepatitis chronicity: unspecified Hepatic coma status: without hepatic coma Qualified Code(s): B19.20 - Unspecified viral hepatitis C without hepatic coma (5) Nicotine dependence Current Visit: Yes Status: Chronic Qualifiers: Nicotine product type: cigarettes Substance use status: uncomplicated Qualified Code(s): F17.210 - Nicotine dependence, cigarettes, uncomplicated (6) Opioid dependence with withdrawal Current Visit: Yes Status: Chronic (7) Insomnia Current Visit: No Status: Acute (8) Substance-induced sleep disorder Current Visit: No Status: Acute (9) Drug-induced mood disorder Current Visit: No Status: Chronic (10) History of dental problems Current Visit: No Status: Chronic (11) Insomnia Current Visit: No Status: Chronic Qualifiers: Insomnia type: primary Qualified Code(s): F51.01 - Primary insomnia (12) Marihuana dependence Current Visit: Yes Status: Chronic (13) Non-compliance Current Visit: No Status: Chronic (14) Opioid dependence Current Visit: No Status: Chronic Qualifiers: Substance use status: uncomplicated Qualified Code(s): F11.20 - Opioid dependence, uncomplicated (15) Sedative, hypnotic or anxiolytic dependence with withdrawal, uncomplicated Current Visit: No Status: Chronic (16) Substance induced mood disorder Current Visit: No Status: Chronic (17) Uncomplicated sedative, hypnotic or anxiolytic withdrawal Current Visit: No Status: Chronic (18) Depressed Current Visit: No Status: Suspected Qualifiers: Depression Type: unspecified Qualified Code(s): F32.9 - Major depressive disorder, single episode, unspecified (19) Drug-induced mood disorder Current Visit: No Status: Suspected - AMA Did Patient Leave Against Medical Advice: Yes
[2018-11-30] MEDS ORDERED: chlordiazePOXIDE HCL 25 MG CAPSULE PO SCH (23:00)
[2018-12-01] MEDS ORDERED: METHADONE HCL 10 MG TABLET (FOR DETOX USE ONLY) PO ONE (10:00)
[2018-12-01] MEDS ORDERED: chlordiazePOXIDE HCL 10 MG CAPSULE PO SCH (23:00)
[2018-12-01] MEDS ORDERED: chlordiazePOXIDE HCL 10 MG CAPSULE PO PRN (23:00)
[2018-12-02] MEDS ORDERED: METHADONE HCL 10 MG TABLET (FOR DETOX USE ONLY) PO ONE (10:00)
[2018-12-02] MEDS ORDERED: chlordiazePOXIDE HCL 10 MG CAPSULE PO SCH (23:00)
[2018-12-03] MEDS ORDERED: METHADONE HCL 5 MG TABLET (FOR DETOX USE ONLY) PO ONE (06:00)
== END 2018-11-30 15:25 | disposition left against medical advice (07) | DRG 770 ==
LOC: YASAS 13:48 → Y6N 21:22
PROVIDERS: ADMIT Surgery; ATTEND Surgery
PROC: HZ2ZZZZ Detoxification Services for Substance Abuse Treatment (ICD-10-PCS; principal; 2018-11-29)
DX: F10.230 Alcohol dependence with withdrawal, uncomplicated (principal); F11.23 Opioid dependence with withdrawal; F13.230 Sedative, hypnotic or anxiolytic dependence with withdrawal, uncomplicated; F14.20 Cocaine dependence, uncomplicated; F12.20 Cannabis dependence, uncomplicated; F17.210 Nicotine dependence, cigarettes, uncomplicated; F19.24 Other psychoactive substance dependence with psychoactive substance-induced mood disorder; F19.282 Other psychoactive substance dependence with psychoactive substance-induced sleep disorder; F32.9 Major depressive disorder, single episode, unspecified; F51.05 Insomnia due to other mental disorder; B19.20 Unspecified viral hepatitis C without hepatic coma; Z87.19 Personal history of other diseases of the digestive system
CPT/HCPCS: 36415; 80053; 85027; 86593

== ENCOUNTER 2019-01-04 16:53 | Inpatient (IN) | payer OTHER ==
[2019-01-04 17:33] VITALS: BMI 25.7
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
[2019-01-04] MEDS ORDERED: BISMUTH SUBSALICYLATE 524 MG/30 ML UD PO PRN (19:31)
[2019-01-04] MEDS ORDERED: MENTHOL/PHENOL 1 EACH UD MM PRN (19:31)
[2019-01-04] MEDS ORDERED: MAG HYDROX/AL HYDROX/SIMETH 30 ML UNIT-DOSE CUP PO PRN (19:31)
[2019-01-04] MEDS ORDERED: chlordiazePOXIDE HCL 25 MG CAPSULE PO PRN (19:31)
[2019-01-04] MEDS ORDERED: hydrOXYzine PAMOATE 25 MG CAPSULE (FP) PO PRN (19:31)
[2019-01-04] MEDS ORDERED: NICOTINE POLACRILEX 2 MG GUM BUC PRN (19:31)
[2019-01-04] MEDS ORDERED: IBUPROFEN 400 MG TABLET (FP) PO PRN (19:31)
[2019-01-04] MEDS ORDERED: DICYCLOMINE HCL 10 MG CAPSULE PO PRN (19:31)
[2019-01-04] MEDS ORDERED: ACETAMINOPHEN 325 MG TABLET (FP) PO PRN ×2 (19:31)
[2019-01-04] MEDS ORDERED: MAGNESIUM CITRATE 300 ML BOTTLE PO PRN (19:31)
[2019-01-04] MEDS ORDERED: MELATONIN 5 MG TABLETS PO PRN (19:31)
[2019-01-04] MEDS ORDERED: MAGNESIUM HYDROX 2400MG/30ML ORAL SUSPENSION 30 ML CUP PO PRN (19:31)
[2019-01-04] MEDS: METHOCARBAMOL 500 MG TABLET PO PRN (20:46)
[2019-01-04] MEDS: THIAMINE HCL 100 MG TABLET (FP) PO SCH (22:09)
[2019-01-04] MEDS: AMOXICILLIN 500 MG CAPSULE (FP) PO SCH (22:09)
[2019-01-04] MEDS: chlordiazePOXIDE HCL 25 MG CAPSULE PO SCH (22:09)
[2019-01-04] MEDS ORDERED: METHADONE HCL 10 MG TABLET (FOR DETOX USE ONLY) PO ONE (23:00)
[2019-01-05] MEDS: chlordiazePOXIDE HCL 25 MG CAPSULE PO SCH ×4 (05:56→22:16)
[2019-01-05] MEDS ORDERED: METHADONE HCL 10 MG TABLET (FOR DETOX USE ONLY) PO ONE (10:00)
[2019-01-05 10:07] LABS: ALBUMIN 3.6 g/dl (3.4-5.0); BILIRUBIN,TOTAL 0.4 mg/dL (0.2-1); CALCIUM 9.3 mg/dL (8.5-10.1); CREATININE 0.8 mg/dL (0.55-1.3); POTASSIUM 4.3 mmol/L (3.5-5.1); TOT PROT 7.3 g/dl (6.4-8.2)
[2019-01-05 10:08] LABS: HEMATOCRIT 40.2 % (32.4-45.2); HEMOGLOBIN 12.7 GM/dL (10.7-15.3); MCH 26.7 pg (25.7-33.7); MCHC 31.7 g/dl (32.0-36.0); MEAN CELL VOLUME 84.2 fl (80-96); MEAN PLT VOLUME 7.9 fl (7.5-11.1); PLATELET COUNT 285 K/MM3 (134-434); RBC 4.78 M/mm3 (3.60-5.2); RDW 15.4 % (11.6-15.6); WHITE BLOOD COUNT 4.6 K/mm3 (4.0-10.0)
[2019-01-05] MEDS: PRENATAL VITAMINS W/ FOLIC ACID TABLET (FP) PO SCH (10:40)
[2019-01-05] MEDS: AMOXICILLIN 500 MG CAPSULE (FP) PO SCH ×2 (12:40→22:16)
--- NOTE | 2019-01-05 13:16 | PN ---
[facility] CIWA - CIWA Score Nausea/Vomitin-Mild Nausea/No Vomiting Muscle Tremors: 3 Anxiety: 2 Agitation: 2 Paroxysmal Sweats: 1-Minimal Palms Moist Orientation: 2-Disoriented Date<2 days Tacttile Disturbances: 0-None Auditory Disturbances: 0-None Visual Disturbances: 0-None Headache: 1-Very Mild CIWA-Ar Total Score: 12 BHS COWS - Scale Resting Pulse: 0= [place] 80 or Below Sweatin= Chills/Flushing Restless Observation: 0= Sits Still Pupil Size: 0= Normal to Room Light Bone or Joint Aches: 1= Mild Discomfort Runny Nose/ Eye Tearin= Nasal Congestion GI Upset > 30mins: 2= Nausea/Diarrhea Tremor Observation of Outstretched Hands: 2= Slight Tremor Visible Yawning Observation: 2= >3x During Session Anxiety or Irritability: 2=Irritable/Anxious Goose Flesh Skin: 0=Smooth Skin COWS Score: 11 [facility] Progress Note (SOAP) Subjective: doing well with detox regimen poor appetite ensure bid Objective: 01/05/19 13:21 Vital Signs Temperature 98.8 F 01/05/19 09:25 Pulse Rate 61 01/05/19 09:25 Respiratory Rate 18 01/05/19 09:25 Blood Pressure 114/72 01/05/19 09:25 O2 Sat by Pulse Oximetry (%) Laboratory Last Values WBC 4.6 K/mm3 (4.0-10.0) 01/05/19 07:00 RBC 4.78 M/mm3 (3.60-5.2) 01/05/19 07:00 Hgb 12.7 GM/dL (10.7-15.3) 01/05/19 07:00 Hct 40.2 % (32.4-45.2) 01/05/19 07:00 MCV 84.2 fl (80-96) 01/05/19 07:00 MCH 26.7 pg (25.7-33.7) 01/05/19 07:00 MCHC 31.7 g/dl (32.0-36.0) L 01/05/19 07:00 RDW 15.4 % (11.6-15.6) 01/05/19 07:00 Plt Count 285 K/MM3 (134-434) 01/05/19 07:00 MPV 7.9 fl (7.5-11.1) 01/05/19 07:00 Sodium 140 mmol/L (136-145) 01/05/19 07:00 Potassium 4.3 mmol/L (3.5-5.1) 01/05/19 07:00 Chloride 107 mmol/L (98-107) 01/05/19 07:00 Carbon Dioxide 29 mmol/L (21-32) 01/05/19 07:00 Anion Gap 4 MMOL/L (8-16) L 01/05/19 07:00 BUN 12 mg/dL (7-18) 01/05/19 07:00 Creatinine 0.8 mg/dL (0.55-1.3) 01/05/19 07:00 Est GFR (CKD-EPI)AfAm 113.86 01/05/19 07:00 Est GFR (CKD-EPI)NonAf 98.24 01/05/19 07:00 Random Glucose 91 mg/dL (74-106) 01/05/19 07:00 Calcium 9.3 mg/dL (8.5-10.1) 01/05/19 07:00 Total Bilirubin 0.4 mg/dL (0.2-1) 01/05/19 07:00 AST 14 U/L (15-37) L 01/05/19 07:00 ALT 19 U/L (13-61) 01/05/19 07:00 Alkaline Phosphatase 63 U/L (45-117) 01/05/19 07:00 Total Protein 7.3 g/dl (6.4-8.2) 01/05/19 07:00 Albumin 3.6 g/dl (3.4-5.0) 01/05/19 07:00 lab noted Assessment: 01/05/19 13:22 alcohol and opiate withdrawal sx Plan: continue detox
[2019-01-05] MEDS: METHOCARBAMOL 500 MG TABLET PO PRN (17:45)
[2019-01-05] MEDS: THIAMINE HCL 100 MG TABLET (FP) PO SCH (22:16)
[2019-01-06] MEDS: chlordiazePOXIDE HCL 25 MG CAPSULE PO SCH ×2 (05:54→10:20)
[2019-01-06] MEDS: METHOCARBAMOL 500 MG TABLET PO PRN (05:54)
[2019-01-06 09:51] VITALS: BP 98/65; PULSE 65; TEMP 97.5
[2019-01-06] MEDS ORDERED: METHADONE HCL 10 MG TABLET (FOR DETOX USE ONLY) PO ONE (10:00)
[2019-01-06] MEDS: PRENATAL VITAMINS W/ FOLIC ACID TABLET (FP) PO SCH (10:20)
--- NOTE | 2019-01-06 14:11 | DS ---
[facility] Detox Discharge Summary Admission Date: 01/04/19 Discharge Date: 01/06/19 - History Present History: Alcohol Dependence, Opioid Dependence Additional Comments: 33 years old female admitted on 01/04/19 for alcohol and opiate withdrawal stabilization insists to leave the unit that she does not like "everything" here patient is alert no acute distress denies suicidal ideation patient is alert no acute distress denies suicidal ideation encourage the patient to stay patient became irritable verbal altercation with peers abusive language toward staff security was called team approach contract for safety patient wants to leave the detox unit refuse to sign safety contract Pertinent Past History: bring in medication list and lab report to follow up appointment - Physical Exam Results Vital Signs: Vital Signs Temperature 97.5 F L 01/06/19 09:50 Pulse Rate 65 01/06/19 09:50 Respiratory Rate 18 01/06/19 09:50 Blood Pressure 98/65 01/06/19 09:50 O2 Sat by Pulse Oximetry (%) Pertinent Admission Physical Exam Findings: alcohol and opiate withdrawal sx Laboratory Last Values WBC 4.6 K/mm3 (4.0-10.0) 01/05/19 07:00 RBC 4.78 M/mm3 (3.60-5.2) 01/05/19 07:00 Hgb 12.7 GM/dL (10.7-15.3) 01/05/19 07:00 Hct 40.2 % (32.4-45.2) 01/05/19 07:00 MCV 84.2 fl (80-96) 01/05/19 07:00 MCH 26.7 pg (25.7-33.7) 01/05/19 07:00 MCHC 31.7 g/dl (32.0-36.0) L 01/05/19 07:00 RDW 15.4 % (11.6-15.6) 01/05/19 07:00 Plt Count 285 K/MM3 (134-434) 01/05/19 07:00 MPV 7.9 fl (7.5-11.1) 01/05/19 07:00 Sodium 140 mmol/L (136-145) 01/05/19 07:00 Potassium 4.3 mmol/L (3.5-5.1) 01/05/19 07:00 Chloride 107 mmol/L (98-107) 01/05/19 07:00 Carbon Dioxide 29 mmol/L (21-32) 01/05/19 07:00 Anion Gap 4 MMOL/L (8-16) L 01/05/19 07:00 BUN 12 mg/dL (7-18) 01/05/19 07:00 Creatinine 0.8 mg/dL (0.55-1.3) 01/05/19 07:00 Est GFR (CKD-EPI)AfAm 113.86 01/05/19 07:00 Est GFR (CKD-EPI)NonAf 98.24 01/05/19 07:00 Random Glucose 91 mg/dL (74-106) 01/05/19 07:00 Calcium 9.3 mg/dL (8.5-10.1) 01/05/19 07:00 Total Bilirubin 0.4 mg/dL (0.2-1) 01/05/19 07:00 AST 14 U/L (15-37) L 01/05/19 07:00 ALT 19 U/L (13-61) 01/05/19 07:00 Alkaline Phosphatase 63 U/L (45-117) 01/05/19 07:00 Total Protein 7.3 g/dl (6.4-8.2) 01/05/19 07:00 Albumin 3.6 g/dl (3.4-5.0) 01/05/19 07:00 POC Urine HCG, Qual Negative 01/04/19 18:17 RPR Titer Nonreactive (NONREACTIVE) 01/05/19 07:00 HIV 1&2 Antibody Screen Negative 01/05/19 08:00 HIV P24 Antigen Negative 01/05/19 08:00 lab noted - Treatment Hospital Course: Detox Protocol Followed, Responded well Patient has Accepted a Rehab Referral to: medication assisted maintenance treatment program - Medication Discharge Medications: Ambulatory Orders NK [No Known Home Medication] 11/29/18 - Diagnosis (1) Alcohol dependence with uncomplicated withdrawal Status: Acute (2) Opioid dependence with withdrawal Status: Acute (3) Hepatitis C Status: Chronic Qualifiers: Viral hepatitis chronicity: unspecified Hepatic coma status: without hepatic coma Qualified Code(s): B19.20 - Unspecified viral hepatitis C without hepatic coma (4) Nicotine dependence Status: Acute Qualifiers: Nicotine product type: cigarettes Substance use status: in withdrawal Qualified Code(s): F17.213 - Nicotine dependence, cigarettes, with withdrawal (5) Substance induced mood disorder Status: Suspected - AMA Did Patient Leave Against Medical Advice: No
[2019-01-06] MEDS ORDERED: chlordiazePOXIDE HCL 10 MG CAPSULE PO PRN (23:00)
[2019-01-06] MEDS ORDERED: chlordiazePOXIDE HCL 10 MG CAPSULE PO SCH (23:00)
[2019-01-07] MEDS ORDERED: METHADONE HCL 10 MG TABLET (FOR DETOX USE ONLY) PO ONE (10:00)
[2019-01-07] MEDS ORDERED: chlordiazePOXIDE HCL 10 MG CAPSULE PO SCH (23:00)
[2019-01-08] MEDS ORDERED: METHADONE HCL 5 MG TABLET (FOR DETOX USE ONLY) PO ONE (06:00)
== END 2019-01-06 12:16 | disposition left against medical advice (07) | DRG 770 ==
LOC: YASAS 16:53 → Y3N 19:50
PROVIDERS: ADMIT Surgery; ATTEND Surgery
PROC: HZ2ZZZZ Detoxification Services for Substance Abuse Treatment (ICD-10-PCS; principal; 2019-01-04)
DX: F11.23 Opioid dependence with withdrawal (principal); F10.230 Alcohol dependence with withdrawal, uncomplicated; F14.20 Cocaine dependence, uncomplicated; F17.213 Nicotine dependence, cigarettes, with withdrawal; F19.24 Other psychoactive substance dependence with psychoactive substance-induced mood disorder; B19.20 Unspecified viral hepatitis C without hepatic coma
CPT/HCPCS: 36415; 80053; 81025; 85027; 86593; 87389

== ENCOUNTER 2019-06-06 14:32 | Inpatient (IN) | payer OTHER ==
[2019-06-06 16:56] VITALS: BMI 22.3
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
[2019-06-06] MEDS ORDERED: MAG HYDROX/AL HYDROX/SIMETH 30 ML UNIT-DOSE CUP PO PRN (19:23)
[2019-06-06] MEDS ORDERED: MAGNESIUM HYDROX 2400MG/30ML ORAL SUSPENSION 30 ML CUP PO PRN (19:23)
[2019-06-06] MEDS ORDERED: cloNIDine HCL 0.1 MG TABLET PO PRN (19:23)
[2019-06-06] MEDS ORDERED: BISMUTH SUBSALICYLATE 524 MG/30 ML UD PO PRN (19:23)
[2019-06-06] MEDS ORDERED: MAGNESIUM CITRATE 300 ML BOTTLE PO PRN (19:23)
[2019-06-06] MEDS ORDERED: ACETAMINOPHEN 325 MG TABLET (FP) PO PRN ×2 (19:23)
[2019-06-06] MEDS ORDERED: IBUPROFEN 400 MG TABLET (FP) PO PRN (19:23)
[2019-06-06] MEDS ORDERED: MENTHOL/PHENOL 1 EACH UD MM PRN (19:23)
[2019-06-06] MEDS ORDERED: MELATONIN 5 MG TABLETS PO PRN (19:23)
--- NOTE | 2019-06-06 19:31 | PN ---
Teaching Attending Note Name of Resident: Augusto Cornelius ATTENDING PHYSICIAN STATEMENT I saw and evaluated the patient. I reviewed the resident's note and discussed the case with the resident. I agree with the resident's findings and plan as documented. SUBJECTIVE: 33 yo with HCV pos, alcohol and opioid use disorder- injection use. Uses cocaine. Pt very sleepy/tired OBJECTIVE: Vital Signs - 24 hr 06/06/19 06/06/19 16:46 18:58 Temperature 97.9 F 97.9 F Pulse Rate 62 62 Respiratory 20 20 Rate Blood Pressure 110/64 110/64 ASSESSMENT AND PLAN: Admit for opioid use disorder- methadone detox to start tomorrow.
[2019-06-06] MEDS: THIAMINE HCL 100 MG TABLET (FP) PO SCH (22:02)
[2019-06-07 09:34] LABS: HEMATOCRIT 36.5 % (32.4-45.2); HEMOGLOBIN 11.9 GM/dL (10.7-15.3); MCH 26.2 pg (25.7-33.7); MCHC 32.7 g/dl (32.0-36.0); MEAN CELL VOLUME 80.1 fl (80-96); MEAN PLT VOLUME 7.5 fl (7.5-11.1); PLATELET COUNT 320 K/MM3 (134-434); RBC 4.56 M/mm3 (3.60-5.2); RDW 15.2 % (11.6-15.6); WHITE BLOOD COUNT 6.3 K/mm3 (4.0-10.0)
[2019-06-07 09:51] LABS: ALBUMIN 3.2 g/dl (3.4-5.0); BILIRUBIN,TOTAL 0.4 mg/dL (0.2-1); BLOOD UREA NITROGEN 6.8 mg/dL (7-18); CALCIUM 8.8 mg/dL (8.5-10.1); CREATININE 0.9 mg/dL (0.55-1.3); POTASSIUM 3.9 mmol/L (3.5-5.1); TOT PROT 6.9 g/dl (6.4-8.2)
[2019-06-07] MEDS ORDERED: METHADONE HCL 10 MG TABLET (FOR DETOX USE ONLY) PO ONE (10:00)
[2019-06-07] MEDS: PRENATAL VITAMINS W/ FOLIC ACID TABLET (FP) PO SCH (10:36)
[2019-06-07] MEDS: hydrOXYzine PAMOATE 25 MG CAPSULE (FP) PO PRN (10:37)
[2019-06-07] MEDS ORDERED: FLUCONAZOLE 50 MG TABLET PO ONE (11:57)
--- NOTE | 2019-06-07 12:03 | PN ---
BHS COWS - Scale Resting Pulse: 0= [place] 80 or Below Sweatin= Chills/Flushing Restless Observation: 1= Difficult to Sit Still Pupil Size: 0= Normal to Room Light Bone or Joint Aches: 2= Severe Diffuse Aches Runny Nose/ Eye Tearin= Runny Nose/Eyes GI Upset > 30mins: 0= None Tremor Observation of Outstretched Hands: 1= Tremor [place], Not Seen Yawning Observation: 2= >3x During Session Anxiety or Irritability: 2=Irritable/Anxious Goose Flesh Skin: 0=Smooth Skin COWS Score: 11 S Progress Note (SOAP) Subjective: sweats shakes agitation irritable interrupted sleep anxiety body aches i have a yeast infection Objective: 06/07/19 12:01 Vital Signs Temperature 98.8 F 06/07/19 09:32 Pulse Rate 74 06/07/19 09:32 Respiratory Rate 18 06/07/19 09:32 Blood Pressure 133/80 06/07/19 09:32 O2 Sat by Pulse Oximetry (%) Laboratory Tests 06/06/19 06/07/19 06/07/19 11:28 07:50 07:50 WBC 6.3 RBC 4.56 Hgb 11.9 Hct 36.5 MCV 80.1 MCH 26.2 MCHC 32.7 RDW 15.2 Plt Count 320 MPV 7.5 Sodium 141 Potassium 3.9 Chloride 104 Carbon Dioxide 29 Anion Gap 8 BUN 6.8 L Creatinine 0.9 Est GFR (CKD-EPI)AfAm 98.75 Est GFR (CKD-EPI)NonAf 85.20 Random Glucose 83 Calcium 8.8 Total Bilirubin 0.4 AST 26 ALT 38 Alkaline Phosphatase 70 Total Protein 6.9 Albumin 3.2 L POC Urine HCG, Qual Negative labs noted aaox3 ambulating no acute distress Assessment: 06/07/19 12:02 withdrawal sx Plan: continue detox increase fluids diflucan x one valium prn
[2019-06-07] MEDS: BACITRACIN 15 GM TUBE TOPICAL OINTMENT TP SCH (15:09)
[2019-06-07] MEDS: diazePAM 5 MG TABLET PO PRN ×2 (17:30→22:14)
[2019-06-07] MEDS: THIAMINE HCL 100 MG TABLET (FP) PO SCH (22:14)
[2019-06-08] MEDS: diazePAM 5 MG TABLET PO PRN ×2 (07:11→18:23)
[2019-06-08] MEDS: hydrOXYzine PAMOATE 25 MG CAPSULE (FP) PO PRN (08:56)
[2019-06-08] MEDS: METHOCARBAMOL 500 MG TABLET PO PRN (08:56)
[2019-06-08] MEDS ORDERED: METHADONE HCL 5 MG TABLET (FOR DETOX USE ONLY) ONE (09:28)
[2019-06-08] MEDS ORDERED: METHADONE HCL 10 MG TABLET (FOR DETOX USE ONLY) ONE (09:28)
[2019-06-08] MEDS ORDERED: METHADONE (DETOX) 20 MG, METHADONE (DETOX) 5 MG PO ONE (10:00)
[2019-06-08] MEDS: PRENATAL VITAMINS W/ FOLIC ACID TABLET (FP) PO SCH (10:17)
[2019-06-08] MEDS: BACITRACIN 15 GM TUBE TOPICAL OINTMENT TP SCH (10:17)
--- NOTE | 2019-06-08 14:11 | PN ---
BHS COWS - Scale Resting Pulse: 0= [place] 80 or Below Sweatin= Chills/Flushing Restless Observation: 1= Difficult to Sit Still Pupil Size: 0= Normal to Room Light Bone or Joint Aches: 2= Severe Diffuse Aches Runny Nose/ Eye Tearin= Runny Nose/Eyes GI Upset > 30mins: 0= None Tremor Observation of Outstretched Hands: 1= Tremor [place], Not Seen Yawning Observation: 1= 1-2x During Session Anxiety or Irritability: 1=Feels Anxious/Irritable Goose Flesh Skin: 0=Smooth Skin COWS Score: 9 BHS Progress Note (SOAP) Subjective: sweats chills body aches interrupted sleep irritable Objective: 06/08/19 14:10 Vital Signs Temperature 98.2 F 06/08/19 13:13 Pulse Rate 50 L 06/08/19 13:13 Respiratory Rate 18 06/08/19 13:13 Blood Pressure 93/50 L 06/08/19 13:13 O2 Sat by Pulse Oximetry (%) Laboratory Tests 06/06/19 06/07/19 06/07/19 11:28 07:50 07:50 WBC 6.3 RBC 4.56 Hgb 11.9 Hct 36.5 MCV 80.1 MCH 26.2 MCHC 32.7 RDW 15.2 Plt Count 320 MPV 7.5 Sodium 141 Potassium 3.9 Chloride 104 Carbon Dioxide 29 Anion Gap 8 BUN 6.8 L Creatinine 0.9 Est GFR (CKD-EPI)AfAm 98.75 Est GFR (CKD-EPI)NonAf 85.20 Random Glucose 83 Calcium 8.8 Total Bilirubin 0.4 AST 26 ALT 38 Alkaline Phosphatase 70 Total Protein 6.9 Albumin 3.2 L POC Urine HCG, Qual Negative RPR Titer 06/07/19 07:50 WBC RBC Hgb Hct MCV MCH MCHC RDW Plt Count MPV Sodium Potassium Chloride Carbon Dioxide Anion Gap BUN Creatinine Est GFR (CKD-EPI)AfAm Est GFR (CKD-EPI)NonAf Random Glucose Calcium Total Bilirubin AST ALT Alkaline Phosphatase Total Protein Albumin POC Urine HCG, Qual RPR Titer Nonreactive labs noted aaox3 ambulating no acute distress Assessment: 06/08/19 14:11 withdrawals sx Plan: continue detox increase fluids
[2019-06-08] MEDS: THIAMINE HCL 100 MG TABLET (FP) PO SCH (22:26)
[2019-06-09] MEDS: diazePAM 5 MG TABLET PO PRN ×3 (05:25→22:33)
[2019-06-09] MEDS: PRENATAL VITAMINS W/ FOLIC ACID TABLET (FP) PO SCH (09:56)
[2019-06-09] MEDS: BACITRACIN 15 GM TUBE TOPICAL OINTMENT TP SCH (09:56)
[2019-06-09] MEDS ORDERED: METHADONE HCL 10 MG TABLET (FOR DETOX USE ONLY) PO ONE (10:00)
[2019-06-09] MEDS: METHOCARBAMOL 500 MG TABLET PO PRN ×2 (11:12→17:40)
--- NOTE | 2019-06-09 11:42 | PN ---
BHS COWS - Scale Resting Pulse: 0= [place] 80 or Below Sweatin= Chills/Flushing Restless Observation: 1= Difficult to Sit Still Pupil Size: 0= Normal to Room Light Bone or Joint Aches: 2= Severe Diffuse Aches Runny Nose/ Eye Tearin= Runny Nose/Eyes GI Upset > 30mins: 0= None Tremor Observation of Outstretched Hands: 1= Tremor [place], Not Seen Yawning Observation: 1= 1-2x During Session Anxiety or Irritability: 2=Irritable/Anxious Goose Flesh Skin: 0=Smooth Skin COWS Score: 10 BHS Progress Note (SOAP) Subjective: sweats shakes interrupted sleep anxiety restless irritable Objective: 06/09/19 11:42 Vital Signs Temperature 97.3 F L 06/09/19 10:01 Pulse Rate 73 06/09/19 10:01 Respiratory Rate 16 06/09/19 10:01 Blood Pressure 107/67 06/09/19 10:01 O2 Sat by Pulse Oximetry (%) Laboratory Tests 06/06/19 06/07/19 06/07/19 11:28 07:50 07:50 WBC 6.3 RBC 4.56 Hgb 11.9 Hct 36.5 MCV 80.1 MCH 26.2 MCHC 32.7 RDW 15.2 Plt Count 320 MPV 7.5 Sodium 141 Potassium 3.9 Chloride 104 Carbon Dioxide 29 Anion Gap 8 BUN 6.8 L Creatinine 0.9 Est GFR (CKD-EPI)AfAm 98.75 Est GFR (CKD-EPI)NonAf 85.20 Random Glucose 83 Calcium 8.8 Total Bilirubin 0.4 AST 26 ALT 38 Alkaline Phosphatase 70 Total Protein 6.9 Albumin 3.2 L POC Urine HCG, Qual Negative RPR Titer 06/07/19 07:50 WBC RBC Hgb Hct MCV MCH MCHC RDW Plt Count MPV Sodium Potassium Chloride Carbon Dioxide Anion Gap BUN Creatinine Est GFR (CKD-EPI)AfAm Est GFR (CKD-EPI)NonAf Random Glucose Calcium Total Bilirubin AST ALT Alkaline Phosphatase Total Protein Albumin POC Urine HCG, Qual RPR Titer Nonreactive labs noted aaox3 ambulating no acute distress Assessment: 06/09/19 11:42 withdrawal sx Plan: continue detox increase fluids
[2019-06-09] MEDS ORDERED: COLLOIDAL OATMEAL 1 BAR EACH TP PRN (14:22)
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
[2019-06-09] MEDS: ATOMOXETINE HCL 40 MG CAPSULE PO SCH (17:40)
[2019-06-09] MEDS: hydrOXYzine PAMOATE 50 MG CAPSULE (FP) PO PRN (17:42)
[2019-06-09] MEDS ORDERED: SUVOREXANT 10 MG TABLET PO PRN (22:00)
[2019-06-09] MEDS: THIAMINE HCL 100 MG TABLET (FP) PO SCH (22:33)
[2019-06-09] MEDS: metroNIDAZOLE 0.75% VAGINAL GEL 70 GM TUBE VG SCH (22:37)
[2019-06-10] MEDS: METHOCARBAMOL 500 MG TABLET PO PRN ×2 (06:21→15:05)
[2019-06-10] MEDS: diazePAM 5 MG TABLET PO PRN ×2 (06:21→10:31)
[2019-06-10] MEDS: hydrOXYzine PAMOATE 50 MG CAPSULE (FP) PO PRN ×2 (06:21→15:05)
[2019-06-10] MEDS ORDERED: METHADONE HCL 10 MG TABLET (FOR DETOX USE ONLY) ONE (09:43)
[2019-06-10] MEDS ORDERED: METHADONE HCL 5 MG TABLET (FOR DETOX USE ONLY) ONE (09:43)
[2019-06-10] MEDS ORDERED: METHADONE (DETOX) 10 MG, METHADONE (DETOX) 5 MG PO ONE (10:00)
[2019-06-10] MEDS: PRENATAL VITAMINS W/ FOLIC ACID TABLET (FP) PO SCH (10:30)
[2019-06-10] MEDS: ATOMOXETINE HCL 40 MG CAPSULE PO SCH (10:30)
[2019-06-10] MEDS: BACITRACIN 15 GM TUBE TOPICAL OINTMENT TP SCH (10:32)
--- NOTE | 2019-06-10 15:20 | PN ---
BHS COWS - Scale Resting Pulse: 2= [place] 101-120 Sweatin= Chills/Flushing Restless Observation: 1= Difficult to Sit Still Pupil Size: 0= Normal to Room Light Bone or Joint Aches: 2= Severe Diffuse Aches Runny Nose/ Eye Tearin= Nasal Congestion GI Upset > 30mins: 0= None Tremor Observation of Outstretched Hands: 1= Tremor [place], Not Seen Yawning Observation: 1= 1-2x During Session Anxiety or Irritability: 1=Feels Anxious/Irritable Goose Flesh Skin: 0=Smooth Skin COWS Score: 10 BHS Progress Note (SOAP) Subjective: anxiety sweats shakes interrupted sleep Objective: 06/10/19 15:19 Vital Signs Temperature 98.1 F 06/10/19 14:26 Pulse Rate 103 H 06/10/19 14:26 Respiratory Rate 18 06/10/19 14:26 Blood Pressure 102/68 06/10/19 14:26 O2 Sat by Pulse Oximetry (%) aaox3 ambulating no acute distress Assessment: 06/10/19 15:19 withdrawals Plan: continue detox increase fluids pt will d/c on thursday.
--- NOTE | 2019-06-10 16:10 | PN ---
Psychiatric Progress Note Vital Signs: Vital Signs Period Temp Pulse Resp BP Sys/Vasquez Pulse Ox Last 24 Hr 96 F-99.5 F 80-113 16- 102-120/56-80 Date of Session: 06/10/19 Chief Complaint:: " I'm not sleeping well." HPI: Patient admitted to for alcohol, opioid and cocaine dependence. ROS: Patient is coherent, alert + oriented X3. Current Medications: Active Medications Generic Name Dose Route Start Last Admin Trade Name Freq PRN Reason Stop Dose Admin Acetaminophen 650 mg 06/06/19 19:23 Tylenol - PO Q6H PRN PAIN LEVEL 4 - 6 Acetaminophen 650 mg 06/06/19 19:23 Tylenol - PO Q6H PRN FEVER Al Hydroxide/Mg Hydroxide 30 ml 06/06/19 19:23 Mylanta Oral Suspension - PO Q6H PRN DYSPEPSIA Atomoxetine HCl 40 mg 06/09/19 17:00 06/10/19 10:30 Strattera - PO 40 mg DAILY YANET Administration Bacitracin 1 applic 06/07/19 12:00 06/10/19 10:32 Bacitracin - TP Not Given DAILY YANET Bismuth Subsalicylate 524 mg 06/06/19 19:23 Pepto-Bismol - PO Q1H PRN DIARRHEA Colloidal Oatmeal 1 applic 06/09/19 14:22 06/09/19 14:39 Aveeno Soap - TP 1 applic DAILY PRN Administration HYGEINE Diazepam 5 mg 06/10/19 15:21 Valium - PO 06/13/19 15:21 Q4H PRN WITHDRAWAL(CONT SUBST) Eucalyptus/Menthol/Phenol/Sorbitol 1 each 06/06/19 19:23 Cepastat Lozenge - MM 06/12/19 19:26 Q4H PRN SORE THROAT Hydroxyzine Pamoate 50 mg 06/09/19 15:05 06/10/19 15:05 Vistaril - PO 50 mg Q4H PRN Administration ANXIETY Ibuprofen 400 mg 06/06/19 19:23 Motrin - PO Q6H PRN PAIN LEVEL 1 - 3 Magnesium Citrate 300 ml 06/06/19 19:23 Citroma - PO Q48H PRN CONSTIPATION Magnesium Hydroxide 30 ml 06/06/19 19:23 Milk Of Magnesia - PO PRN PRN CONSTIPATION Methadone HCl 5 mg 06/12/19 06:00 Dolophine - PO 06/12/19 06:01 ONCE@0600 ONE Methadone HCl 10 mg 06/11/19 10:00 Dolophine - PO 06/11/19 10:01 ONCE ONE Methocarbamol 500 mg 06/06/19 19:23 06/10/19 15:05 Robaxin - PO 06/12/19 19:26 500 mg Q6H PRN Administration MUSCLE SPASMS Metronidazole 1 applic 06/09/19 22:00 06/09/19 22:37 Metrogel 0.75% Vaginal Gel - VG 06/13/19 22:01 1 applic HS YANET Administration Multivit/Folic Acid/Iron 1 tab 06/07/19 10:00 06/10/19 10:30 Vitamins (Sjr) - PO 1 tab DAILY YANET Administration Suvorexant 10 mg 06/09/19 22:00 06/09/19 22:33 Belsomra PO 06/12/19 21:59 10 mg HS PRN Administration INSOMNIA Thiamine HCl 100 mg 06/06/19 22:00 06/09/19 22:33 Vitamin B1 - PO 100 mg HS YANET Administration Medication(s) Change(s): Yes. Current Side Effect: No Lab tests ordered: No Lab tests reviewed: Yes Provider note:: Patient reports poor despite accepting Belsomra 10mg HS. Will d/ c Belsomra 10mg and will order Belsomra 15mg HS. Patient also educated on the importance of sleep hygiene. Will order Belsomra 15mg HS. Benefits and side effects discussed. Verbal consent given. Total face to face time:: 15 Mental Status Exam - Mental Status Exam Alert and Oriented to: Time, Place, Person Cognitive Function: Good Patient Appearance: Well Groomed Mood: Euthymic Affect: Mood Congruent Patient Behavior: Cooperative Speech Pattern: Appropriate Voice Loudness: Normal Thought Process: Goal Oriented Thought Disorder: Not Present Hallucinations: Denies Suicidal Ideation: Denies Homicidal Ideation: Denies Insight/Judgement: Poor Sleep: Poorly Appetite: Fair Muscle strength/Tone: Normal Gait/Station: Normal Psychiatric Treatment Plan - Problem List (1) Substance induced mood disorder Current Visit: Yes (2) ADHD (attention deficit hyperactivity disorder) Current Visit: Yes (3) MDD (major depressive disorder) Current Visit: Yes (4) Cocaine dependence, uncomplicated Current Visit: Yes (5) Opioid dependence with withdrawal Current Visit: Yes (6) Substance-induced sleep disorder Current Visit: Yes
[2019-06-10] MEDS: THIAMINE HCL 100 MG TABLET (FP) PO SCH (22:32)
[2019-06-10] MEDS: metroNIDAZOLE 0.75% VAGINAL GEL 70 GM TUBE VG SCH (22:32)
[2019-06-10] MEDS: SUVOREXANT 15 MG TABLET PO PRN (22:34)
[2019-06-11] MEDS: diazePAM 5 MG TABLET PO PRN ×2 (09:31→22:07)
[2019-06-11] MEDS: METHOCARBAMOL 500 MG TABLET PO PRN (09:31)
[2019-06-11] MEDS ORDERED: METHADONE HCL 10 MG TABLET (FOR DETOX USE ONLY) PO ONE (10:00)
[2019-06-11] MEDS: BACITRACIN 15 GM TUBE TOPICAL OINTMENT TP SCH (10:28)
[2019-06-11] MEDS: PRENATAL VITAMINS W/ FOLIC ACID TABLET (FP) PO SCH (10:31)
[2019-06-11] MEDS: ATOMOXETINE HCL 40 MG CAPSULE PO SCH (10:31)
--- NOTE | 2019-06-11 12:53 | PN ---
BHS COWS - Scale Resting Pulse: 0= [place] 80 or Below Sweatin= No chills or Flushing Restless Observation: 1= Difficult to Sit Still Pupil Size: 0= Normal to Room Light Bone or Joint Aches: 0= None Runny Nose/ Eye Tearin= None GI Upset > 30mins: 0= None Tremor Observation of Outstretched Hands: 0= None Yawning Observation: 1= 1-2x During Session Anxiety or Irritability: 2=Irritable/Anxious Goose Flesh Skin: 0=Smooth Skin COWS Score: 4 BHS Progress Note (SOAP) Subjective: c/o mild sweats and anxiety. Objective: 06/11/19 12:51 Vital Signs 06/11/19 06/11/19 06/11/19 06:00 06:30 09:49 Temperature 97.9 F 99.7 F H Pulse Rate 75 111 H Respiratory 16 18 18 Rate Blood Pressure 110/65 119/71 06/11/19 12:38 Temperature 97.9 F Pulse Rate 120 H Respiratory 20 Rate Blood Pressure 115/77 Laboratory Last Values WBC 6.3 K/mm3 (4.0-10.0) 06/07/19 07:50 RBC 4.56 M/mm3 (3.60-5.2) 06/07/19 07:50 Hgb 11.9 GM/dL (10.7-15.3) 06/07/19 07:50 Hct 36.5 % (32.4-45.2) 06/07/19 07:50 MCV 80.1 fl (80-96) 06/07/19 07:50 MCH 26.2 pg (25.7-33.7) 06/07/19 07:50 MCHC 32.7 g/dl (32.0-36.0) 06/07/19 07:50 RDW 15.2 % (11.6-15.6) 06/07/19 07:50 Plt Count 320 K/MM3 (134-434) 06/07/19 07:50 MPV 7.5 fl (7.5-11.1) 06/07/19 07:50 Sodium 141 mmol/L (136-145) 06/07/19 07:50 Potassium 3.9 mmol/L (3.5-5.1) 06/07/19 07:50 Chloride 104 mmol/L (98-107) 06/07/19 07:50 Carbon Dioxide 29 mmol/L (21-32) 06/07/19 07:50 Anion Gap 8 MMOL/L (8-16) 06/07/19 07:50 BUN 6.8 mg/dL (7-18) L 06/07/19 07:50 Creatinine 0.9 mg/dL (0.55-1.3) 06/07/19 07:50 Est GFR (CKD-EPI)AfAm 98.75 06/07/19 07:50 Est GFR (CKD-EPI)NonAf 85.20 06/07/19 07:50 Random Glucose 83 mg/dL (74-106) 06/07/19 07:50 Calcium 8.8 mg/dL (8.5-10.1) 06/07/19 07:50 Total Bilirubin 0.4 mg/dL (0.2-1) 06/07/19 07:50 AST 26 U/L (15-37) 06/07/19 07:50 ALT 38 U/L (13-61) 06/07/19 07:50 Alkaline Phosphatase 70 U/L (45-117) 06/07/19 07:50 Total Protein 6.9 g/dl (6.4-8.2) 06/07/19 07:50 Albumin 3.2 g/dl (3.4-5.0) L 06/07/19 07:50 POC Urine HCG, Qual Negative 06/06/19 11:28 RPR Titer Nonreactive (NONREACTIVE) 06/07/19 07:50 Labs noted. Assessment: 06/11/19 12:52 AOX3, in no acute respiratory distress. Full ROM, ambulating in the unit. Withdrawal symptoms. Plan: continue detox.
[2019-06-11] MEDS: hydrOXYzine PAMOATE 50 MG CAPSULE (FP) PO PRN ×2 (13:42→17:53)
[2019-06-11] MEDS: SUVOREXANT 15 MG TABLET PO PRN (22:06)
[2019-06-11] MEDS: THIAMINE HCL 100 MG TABLET (FP) PO SCH (22:07)
[2019-06-11] MEDS: metroNIDAZOLE 0.75% VAGINAL GEL 70 GM TUBE VG SCH (22:08)
[2019-06-12] MEDS ORDERED: METHADONE HCL 5 MG TABLET (FOR DETOX USE ONLY) PO ONE (06:00)
[2019-06-12] MEDS: METHOCARBAMOL 500 MG TABLET PO PRN ×2 (10:01→19:25)
[2019-06-12] MEDS: PRENATAL VITAMINS W/ FOLIC ACID TABLET (FP) PO SCH (10:01)
[2019-06-12] MEDS: BACITRACIN 15 GM TUBE TOPICAL OINTMENT TP SCH (10:01)
[2019-06-12] MEDS: ATOMOXETINE HCL 40 MG CAPSULE PO SCH (10:01)
--- NOTE | 2019-06-12 17:03 | PN ---
BHS COWS - Scale Resting Pulse: 1= [place] 81-100 Sweatin= Chills/Flushing Restless Observation: 0= Sits Still Pupil Size: 0= Normal to Room Light Bone or Joint Aches: 1= Mild Discomfort Runny Nose/ Eye Tearin= None GI Upset > 30mins: 1= Stomach Cramp Tremor Observation of Outstretched Hands: 0= None Yawning Observation: 0= None Anxiety or Irritability: 1=Feels Anxious/Irritable Goose Flesh Skin: 0=Smooth Skin COWS Score: 5 BHS Progress Note (SOAP) Subjective: Sweating, interrupted sleep, anxious Objective: 06/12/19 17:00 Last Vital Signs Temp Pulse Resp BP Pulse Ox 97.6 F 99 H 18 117/86 06/12/19 14:42 06/12/19 14:42 06/12/19 14:42 06/12/19 14:42 Laboratory Tests 06/06/19 06/07/19 06/07/19 11:28 07:50 07:50 WBC 6.3 RBC 4.56 Hgb 11.9 Hct 36.5 MCV 80.1 MCH 26.2 MCHC 32.7 RDW 15.2 Plt Count 320 MPV 7.5 Sodium 141 Potassium 3.9 Chloride 104 Carbon Dioxide 29 Anion Gap 8 BUN 6.8 L Creatinine 0.9 Est GFR (CKD-EPI)AfAm 98.75 Est GFR (CKD-EPI)NonAf 85.20 Random Glucose 83 Calcium 8.8 Total Bilirubin 0.4 AST 26 ALT 38 Alkaline Phosphatase 70 Total Protein 6.9 Albumin 3.2 L POC Urine HCG, Qual Negative RPR Titer 06/07/19 07:50 WBC RBC Hgb Hct MCV MCH MCHC RDW Plt Count MPV Sodium Potassium Chloride Carbon Dioxide Anion Gap BUN Creatinine Est GFR (CKD-EPI)AfAm Est GFR (CKD-EPI)NonAf Random Glucose Calcium Total Bilirubin AST ALT Alkaline Phosphatase Total Protein Albumin POC Urine HCG, Qual RPR Titer Nonreactive Labs reviewed Assessment: 06/12/19 17:00 Withdrawal sxs Plan: Continue detox Encouraged PO water hydration Scheduled for discharge to rehab tomorrow if bed available
[2019-06-12] MEDS: hydrOXYzine PAMOATE 50 MG CAPSULE (FP) PO PRN (19:25)
[2019-06-12] MEDS: THIAMINE HCL 100 MG TABLET (FP) PO SCH (22:12)
[2019-06-12] MEDS: diazePAM 5 MG TABLET PO PRN (22:15)
[2019-06-12] MEDS: metroNIDAZOLE 0.75% VAGINAL GEL 70 GM TUBE VG SCH (22:17)
[2019-06-13 09:44] VITALS: BP 119/72; PULSE 100; TEMP 97
--- NOTE | 2019-06-13 10:23 | DS ---
[facility] Detox Discharge Summary Admission Date: 06/06/19 Discharge Date: 06/13/19 - History Present History: Alcohol Dependence, Cannabis Dependence, Cocaine Dependence, Opioid Dependence, Sedative Dependence - Physical Exam Results Vital Signs: Vital Signs Temperature 97 F L 06/13/19 09:43 Pulse Rate 100 H 06/13/19 09:43 Respiratory Rate 18 06/13/19 09:43 Blood Pressure 119/72 06/13/19 09:43 O2 Sat by Pulse Oximetry (%) Pertinent Admission Physical Exam Findings: pt arrived in withdrawals Vital Signs Temperature 97 F L 06/13/19 09:43 Pulse Rate 100 H 06/13/19 09:43 Respiratory Rate 18 06/13/19 09:43 Blood Pressure 119/72 06/13/19 09:43 O2 Sat by Pulse Oximetry (%) Laboratory Tests 06/06/19 06/07/19 06/07/19 11:28 07:50 07:50 WBC 6.3 RBC 4.56 Hgb 11.9 Hct 36.5 MCV 80.1 MCH 26.2 MCHC 32.7 RDW 15.2 Plt Count 320 MPV 7.5 Sodium 141 Potassium 3.9 Chloride 104 Carbon Dioxide 29 Anion Gap 8 BUN 6.8 L Creatinine 0.9 Est GFR (CKD-EPI)AfAm 98.75 Est GFR (CKD-EPI)NonAf 85.20 Random Glucose 83 Calcium 8.8 Total Bilirubin 0.4 AST 26 ALT 38 Alkaline Phosphatase 70 Total Protein 6.9 Albumin 3.2 L POC Urine HCG, Qual Negative RPR Titer 06/07/19 07:50 WBC RBC Hgb Hct MCV MCH MCHC RDW Plt Count MPV Sodium Potassium Chloride Carbon Dioxide Anion Gap BUN Creatinine Est GFR (CKD-EPI)AfAm Est GFR (CKD-EPI)NonAf Random Glucose Calcium Total Bilirubin AST ALT Alkaline Phosphatase Total Protein Albumin POC Urine HCG, Qual RPR Titer Nonreactive pt arrived in withdrawals no s/s of withdrawals aaox3 ambulating no acute distress - Treatment Hospital Course: Detox Protocol Followed, Detoxed Safely, Responded well, Discharged Condition Good, Rehab Referral Accepted Patient has Accepted a Rehab Referral to: pt referred to inpatient rehab in [facility] - Medication Discharge Medications: Ambulatory Orders NK [No Known Home Medication] 11/29/18 - Diagnosis (1) Cocaine dependence, uncomplicated Current Visit: Yes Status: Chronic (2) Opioid dependence with withdrawal Current Visit: Yes Status: Chronic (3) Substance induced mood disorder Current Visit: Yes Status: Acute (4) Substance-induced sleep disorder Current Visit: Yes Status: Acute (5) ADHD (attention deficit hyperactivity disorder) Current Visit: Yes Status: Chronic (6) MDD (major depressive disorder) Current Visit: Yes Status: Chronic (7) Alcohol dependence with uncomplicated withdrawal Current Visit: Yes Status: Chronic (8) Dehydration Current Visit: Yes Status: Acute (9) Insomnia Current Visit: No Status: Acute (10) Drug-induced mood disorder Current Visit: No Status: Chronic (11) Hepatitis C Current Visit: No Status: Chronic Qualifiers: Viral hepatitis chronicity: unspecified Hepatic coma status: without hepatic coma Qualified Code(s): B19.20 - Unspecified viral hepatitis C without hepatic coma (12) History of dental problems Current Visit: Yes Status: Chronic (13) Insomnia Current Visit: No Status: Chronic Qualifiers: Insomnia type: primary Qualified Code(s): F51.01 - Primary insomnia (14) Marihuana dependence Current Visit: No Status: Chronic (15) Opioid dependence Current Visit: Yes Status: Chronic Qualifiers: Substance use status: uncomplicated Qualified Code(s): F11.20 - Opioid dependence, uncomplicated (16) Sedative, hypnotic or anxiolytic dependence with withdrawal, uncomplicated Current Visit: Yes Status: Chronic (17) Depressed Current Visit: No Status: Suspected Qualifiers: Depression Type: unspecified Qualified Code(s): F32.9 - Major depressive disorder, single episode, unspecified (18) Drug-induced mood disorder Current Visit: No Status: Suspected (19) Substance induced mood disorder Current Visit: No Status: Suspected - AMA Did Patient Leave Against Medical Advice: No
[2019-06-13] MEDS: PRENATAL VITAMINS W/ FOLIC ACID TABLET (FP) PO SCH (10:43)
[2019-06-13] MEDS: BACITRACIN 15 GM TUBE TOPICAL OINTMENT TP SCH (10:43)
[2019-06-13] MEDS: hydrOXYzine PAMOATE 50 MG CAPSULE (FP) PO PRN (10:43)
[2019-06-13] MEDS: ATOMOXETINE HCL 40 MG CAPSULE PO SCH (10:43)
== END 2019-06-13 12:34 | disposition home or self-care (01) | DRG 773 ==
LOC: YASAS 14:32 → Y6N 19:14
PROVIDERS: ADMIT Allergy & Immunology; ATTEND Allergy & Immunology
PROC: HZ2ZZZZ Detoxification Services for Substance Abuse Treatment (ICD-10-PCS; principal; 2019-06-06)
DX: F11.23 Opioid dependence with withdrawal (principal); F10.230 Alcohol dependence with withdrawal, uncomplicated; F13.230 Sedative, hypnotic or anxiolytic dependence with withdrawal, uncomplicated; F14.20 Cocaine dependence, uncomplicated; F12.20 Cannabis dependence, uncomplicated; F17.210 Nicotine dependence, cigarettes, uncomplicated; F51.05 Insomnia due to other mental disorder; F19.282 Other psychoactive substance dependence with psychoactive substance-induced sleep disorder; F19.24 Other psychoactive substance dependence with psychoactive substance-induced mood disorder; F32.9 Major depressive disorder, single episode, unspecified; F90.9 Attention-deficit hyperactivity disorder, unspecified type; E86.0 Dehydration; B19.20 Unspecified viral hepatitis C without hepatic coma; Z87.19 Personal history of other diseases of the digestive system
CPT/HCPCS: 36415; 80053; 81025; 85027; 86593; J0735

== ENCOUNTER 2019-07-04 16:17 | Inpatient (IN) | payer OTHER ==
[2019-07-04 17:06] VITALS: BMI 23.8
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
[2019-07-04] MEDS ORDERED: NICOTINE POLACRILEX 2 MG GUM BUC PRN (18:12)
[2019-07-04] MEDS ORDERED: MAGNESIUM CITRATE 300 ML BOTTLE PO PRN (18:12)
[2019-07-04] MEDS ORDERED: MENTHOL/PHENOL 1 EACH UD MM PRN (18:12)
[2019-07-04] MEDS ORDERED: cloNIDine HCL 0.1 MG TABLET PO PRN (18:12)
[2019-07-04] MEDS ORDERED: ACETAMINOPHEN 325 MG TABLET (FP) PO PRN ×2 (18:12)
[2019-07-04] MEDS ORDERED: MAG HYDROX/AL HYDROX/SIMETH 30 ML UNIT-DOSE CUP PO PRN (18:12)
[2019-07-04] MEDS ORDERED: BISMUTH SUBSALICYLATE 524 MG/30 ML UD PO PRN (18:12)
[2019-07-04] MEDS ORDERED: MELATONIN 5 MG TABLETS PO PRN (18:12)
[2019-07-04] MEDS ORDERED: MAGNESIUM HYDROX 2400MG/30ML ORAL SUSPENSION 30 ML CUP PO PRN (18:12)
[2019-07-04] MEDS ORDERED: IBUPROFEN 400 MG TABLET (FP) PO PRN (18:12)
[2019-07-04] MEDS: THIAMINE HCL 100 MG TABLET (FP) PO SCH (22:38)
[2019-07-05] MEDS: hydrOXYzine PAMOATE 25 MG CAPSULE (FP) PO PRN ×2 (03:45→18:17)
[2019-07-05] MEDS: chlordiazePOXIDE 5 MG CAPSULE PO SCH ×3 (05:19→22:08)
[2019-07-05 09:35] LABS: HEMATOCRIT 37.9 % (32.4-45.2); HEMOGLOBIN 12.3 GM/dL (10.7-15.3); MCH 26.1 pg (25.7-33.7); MCHC 32.4 g/dl (32.0-36.0); MEAN CELL VOLUME 80.7 fl (80-96); MEAN PLT VOLUME 7.8 fl (7.5-11.1); PLATELET COUNT 319 K/MM3 (134-434); RBC 4.69 M/mm3 (3.60-5.2); RDW 15.5 % (11.6-15.6)
[2019-07-05] MEDS ORDERED: METHADONE HCL 10 MG TABLET (FOR DETOX USE ONLY) PO ONE (10:00)
[2019-07-05] MEDS ORDERED: PRENATAL VITAMINS W/ FOLIC ACID TABLET (FP) PO SCH (10:00)
[2019-07-05 10:24] LABS: ALBUMIN 3.3 g/dl (3.4-5.0); BILIRUBIN,TOTAL 0.2 mg/dL (0.2-1); BLOOD UREA NITROGEN 8.9 mg/dL (7-18); CREATININE 0.8 mg/dL (0.55-1.3); POTASSIUM 4.4 mmol/L (3.5-5.1); TOT PROT 7.3 g/dl (6.4-8.2)
[2019-07-05] MEDS ORDERED: LOPERAMIDE HCL 2 MG CAPSULE PO ONE (12:51)
--- NOTE | 2019-07-05 12:56 | PN ---
S CIWA - CIWA Score Nausea/Vomitin-Mild Nausea/No Vomiting Muscle Tremors: 4-Moderate,w/Arms Extend Anxiety: 3 Agitation: 2 Paroxysmal Sweats: 2 Orientation: 0-Oriented Tacttile Disturbances: 0-None Auditory Disturbances: 0-None Visual Disturbances: 0-None Headache: 1-Very Mild CIWA-Ar Total Score: 13 BHS COWS - Scale Resting Pulse: 0= [place] 80 or Below Sweatin= Chills/Flushing Restless Observation: 0= Sits Still Pupil Size: 0= Normal to Room Light Bone or Joint Aches: 1= Mild Discomfort Runny Nose/ Eye Tearin= Nasal Congestion GI Upset > 30mins: 2= Nausea/Diarrhea Tremor Observation of Outstretched Hands: 2= Slight Tremor Visible Yawning Observation: 0= None Anxiety or Irritability: 2=Irritable/Anxious Goose Flesh Skin: 3=Piloerection COWS Score: 12 S Progress Note (SOAP) Subjective: 33 years old female admitted on 07/04/19 for alcohol and opiate withdrawal sx management treated with librium and methadone detox regimen c/o loose stool imodium 4 mg po x 1 Objective: 07/05/19 13:05 Vital Signs Temperature 98.3 F 07/05/19 09:05 Pulse Rate 60 07/05/19 09:05 Respiratory Rate 16 07/05/19 09:05 Blood Pressure 99/62 07/05/19 09:05 O2 Sat by Pulse Oximetry (%) Laboratory Last Values WBC 7.0 K/mm3 (4.0-10.0) 07/05/19 07:20 RBC 4.69 M/mm3 (3.60-5.2) 07/05/19 07:20 Hgb 12.3 GM/dL (10.7-15.3) 07/05/19 07:20 Hct 37.9 % (32.4-45.2) 07/05/19 07:20 MCV 80.7 fl (80-96) 07/05/19 07:20 MCH 26.1 pg (25.7-33.7) 07/05/19 07:20 MCHC 32.4 g/dl (32.0-36.0) 07/05/19 07:20 RDW 15.5 % (11.6-15.6) 07/05/19 07:20 Plt Count 319 K/MM3 (134-434) 07/05/19 07:20 MPV 7.8 fl (7.5-11.1) 07/05/19 07:20 Sodium 139 mmol/L (136-145) 07/05/19 07:20 Potassium 4.4 mmol/L (3.5-5.1) 07/05/19 07:20 Chloride 106 mmol/L (98-107) 07/05/19 07:20 Carbon Dioxide 27 mmol/L (21-32) 07/05/19 07:20 Anion Gap 6 MMOL/L (8-16) L 07/05/19 07:20 BUN 8.9 mg/dL (7-18) 07/05/19 07:20 Creatinine 0.8 mg/dL (0.55-1.3) 07/05/19 07:20 Est GFR (CKD-EPI)AfAm 113.86 07/05/19 07:20 Est GFR (CKD-EPI)NonAf 98.24 07/05/19 07:20 Random Glucose 96 mg/dL (74-106) 07/05/19 07:20 Calcium 9.0 mg/dL (8.5-10.1) 07/05/19 07:20 Total Bilirubin 0.2 mg/dL (0.2-1) 07/05/19 07:20 AST 15 U/L (15-37) 07/05/19 07:20 ALT 12 U/L (13-61) L 07/05/19 07:20 Alkaline Phosphatase 80 U/L (45-117) 07/05/19 07:20 Total Protein 7.3 g/dl (6.4-8.2) 07/05/19 07:20 Albumin 3.3 g/dl (3.4-5.0) L 07/05/19 07:20 POC Urine HCG, Qual Negative 07/04/19 17:37 RPR Titer Nonreactive (NONREACTIVE) 07/05/19 07:20 lab noted Assessment: 07/05/19 13:06 alcohol and opiate withdrawal sx Plan: continue librium and methadone detox regimen
[2019-07-05] MEDS: METHOCARBAMOL 500 MG TABLET PO PRN ×2 (13:49→20:06)
--- NOTE | 2019-07-05 14:32 | CONSULT ---
[facility] Psychiatric Consult - Data Date of interview: 07/05/19 Admission source: [facility] Identifying data: Patient is approached at bedside for the psychiatric evaluation (as requested by medical team). Ms Pereira declines. Nursing staff is made aware.
[2019-07-05] MEDS: chlordiazePOXIDE HCL 10 MG CAPSULE PO PRN (18:17)
[2019-07-05] MEDS: THIAMINE HCL 100 MG TABLET (FP) PO SCH (22:08)
[2019-07-06] MEDS ORDERED: chlordiazePOXIDE HCL 10 MG CAPSULE PO PRN
[2019-07-06] MEDS: METHOCARBAMOL 500 MG TABLET PO PRN (03:25)
[2019-07-06] MEDS: chlordiazePOXIDE HCL 10 MG CAPSULE PO PRN (03:25)
[2019-07-06] MEDS: hydrOXYzine PAMOATE 25 MG CAPSULE (FP) PO PRN (03:26)
[2019-07-06] MEDS ORDERED: chlordiazePOXIDE HCL 10 MG CAPSULE PO SCH (05:00)
[2019-07-06 06:19] VITALS: BP 111/80; PULSE 61; TEMP 97.8
--- NOTE | 2019-07-06 07:19 | PN ---
S Progress Note Note: informed by outgoing GENERAL ACCOUNTANT Ekaterina that patient left the unit AMA,nursing tire service supervisor awared called and spoke with RN Andrade Lam who confirmed patient left the unit and signed out ama
--- NOTE | 2019-07-06 07:25 | DS ---
[facility] Detox Discharge Summary Admission Date: 07/04/19 Discharge Date: 07/06/19 - History Present History: Alcohol Dependence, Cannabis Dependence, Cocaine Dependence, Opioid Dependence Additional Comments: patient left ama Pertinent Past History: ivdu hepatitis c - Physical Exam Results Vital Signs: Vital Signs Temperature 97.8 F 07/06/19 06:18 Pulse Rate 61 07/06/19 06:18 Respiratory Rate 16 07/06/19 06:18 Blood Pressure 111/80 07/06/19 06:18 O2 Sat by Pulse Oximetry (%) Pertinent Admission Physical Exam Findings: withdrawal signs and symptom Laboratory Last Values WBC 7.0 K/mm3 (4.0-10.0) 07/05/19 07:20 RBC 4.69 M/mm3 (3.60-5.2) 07/05/19 07:20 Hgb 12.3 GM/dL (10.7-15.3) 07/05/19 07:20 Hct 37.9 % (32.4-45.2) 07/05/19 07:20 MCV 80.7 fl (80-96) 07/05/19 07:20 MCH 26.1 pg (25.7-33.7) 07/05/19 07:20 MCHC 32.4 g/dl (32.0-36.0) 07/05/19 07:20 RDW 15.5 % (11.6-15.6) 07/05/19 07:20 Plt Count 319 K/MM3 (134-434) 07/05/19 07:20 MPV 7.8 fl (7.5-11.1) 07/05/19 07:20 Sodium 139 mmol/L (136-145) 07/05/19 07:20 Potassium 4.4 mmol/L (3.5-5.1) 07/05/19 07:20 Chloride 106 mmol/L (98-107) 07/05/19 07:20 Carbon Dioxide 27 mmol/L (21-32) 07/05/19 07:20 Anion Gap 6 MMOL/L (8-16) L 07/05/19 07:20 BUN 8.9 mg/dL (7-18) 07/05/19 07:20 Creatinine 0.8 mg/dL (0.55-1.3) 07/05/19 07:20 Est GFR (CKD-EPI)AfAm 113.86 07/05/19 07:20 Est GFR (CKD-EPI)NonAf 98.24 07/05/19 07:20 Random Glucose 96 mg/dL (74-106) 07/05/19 07:20 Calcium 9.0 mg/dL (8.5-10.1) 07/05/19 07:20 Total Bilirubin 0.2 mg/dL (0.2-1) 07/05/19 07:20 AST 15 U/L (15-37) 07/05/19 07:20 ALT 12 U/L (13-61) L 07/05/19 07:20 Alkaline Phosphatase 80 U/L (45-117) 07/05/19 07:20 Total Protein 7.3 g/dl (6.4-8.2) 07/05/19 07:20 Albumin 3.3 g/dl (3.4-5.0) L 07/05/19 07:20 POC Urine HCG, Qual Negative 07/04/19 17:37 RPR Titer Nonreactive (NONREACTIVE) 07/05/19 07:20 - Medication Discharge Medications: Ambulatory Orders Naloxone HCl [Narcan] 4 mg NS ASDIR PRN #1 spray 07/05/19 - Diagnosis (1) Opioid dependence with withdrawal Current Visit: Yes Status: Chronic (2) Alcohol dependence with uncomplicated withdrawal Current Visit: Yes Status: Chronic (3) Cocaine dependence, uncomplicated Current Visit: Yes Status: Chronic (4) Hepatitis C Current Visit: Yes Status: Chronic Qualifiers: Viral hepatitis chronicity: unspecified Hepatic coma status: without hepatic coma Qualified Code(s): B19.20 - Unspecified viral hepatitis C without hepatic coma (5) IV drug user Current Visit: Yes Status: Chronic - AMA Did Patient Leave Against Medical Advice: Yes
[2019-07-06] MEDS ORDERED: METHADONE HCL 5 MG TABLET (FOR DETOX USE ONLY) PO ONE (10:00)
[2019-07-07] MEDS ORDERED: chlordiazePOXIDE HCL 10 MG CAPSULE PO ONE (05:00)
[2019-07-07] MEDS ORDERED: METHADONE HCL 10 MG TABLET (FOR DETOX USE ONLY) PO ONE (06:00)
[2019-07-08] MEDS ORDERED: METHADONE HCL 5 MG TABLET PO ONE (07:00)
== END 2019-07-06 07:03 | disposition left against medical advice (07) | DRG 770 ==
LOC: YASAS 16:17 → Y3N 18:38
PROVIDERS: ADMIT Allergy & Immunology; ATTEND Allergy & Immunology
PROC: HZ2ZZZZ Detoxification Services for Substance Abuse Treatment (ICD-10-PCS; principal; 2019-07-04)
DX: F11.23 Opioid dependence with withdrawal (principal); F10.230 Alcohol dependence with withdrawal, uncomplicated; F14.20 Cocaine dependence, uncomplicated; F12.20 Cannabis dependence, uncomplicated; F17.210 Nicotine dependence, cigarettes, uncomplicated; B19.20 Unspecified viral hepatitis C without hepatic coma
CPT/HCPCS: 36415; 80053; 81025; 85027; 86593; J0735